=== PATIENT | male | born 1960 | race African-American/Black ===

== ENCOUNTER 2017-07-09 20:06 | Emergency (ER) | payer BC ==
[2017-07-09 21:37] LABS: Absolute Lymphocytes (CBC) 2.6 K/uL (0.7-4.9); Absolute Neutrophil 5.5 K/uL (1.8-8.0); Basophils % 0.9 % (0-1.3); Eosinophils % 1.1 % (0-4.4); Hematocrit 41.4 % (39.6-49.0); Lymphocytes % 27.9 % (15.3-44.8); MCH 29.5 pg (27.0-35.0); MCV 85.9 fL (80-100); MPV 9.9 fL (7.6-11.3); Monocytes % 10.4 % (3.3-12.3); RBC Red Blood Cell Count 4.81 M/uL (4.33-5.43)
[2017-07-09 21:43] LABS: Protime INR 1.09
[2017-07-09 21:48] LABS: Urine Blood 3+ (NEG); Urine Glucose NEGATIVE (NEG); Urine Protein 2+ (NEG); Urine Specific Gravity 1.015 (1.005-1.030); Urine pH 5.5 (5.0-7.0)
[2017-07-09 21:51] LABS: Potassium 4.1 mEq/L (3.6-5.0)
[2017-07-09 22:18] LABS: Urine Bacteria <20 /HPF (NONE SEEN); Urine Culture Reflex Order NOT NEEDED; Urine RBC >50 /HPF (NONE SEEN)
[2017-07-09 22:19] LABS: Urine Amorphous Sediment 2+ /HPF (NONE SEEN); Urine Mucus 1+ /HPF (NONE SEEN)
--- NOTE | 2017-07-09 22:48 | ER ---
Nurse's Notes [facility] Name: Monty Faulkner Age: 57 yrs Sex: Male : 1960 Arrival Date: 07/09/2017 Time: 20:17 Bed 5 Private MD: out of town, doctor Diagnosis: Hematuria Presentation: 07/09 20:35 Presenting complaint: Patient states: States color change in urine x1 week, eusebio in lp1 color; Denies any pain with urination, fever; States heart stent placed 2 weeks ago, on blood thinners. Transition of care: patient was not received from another setting of care. Onset of symptoms was July 09, 2017. Care prior to arrival: None. 20:35 Method Of Arrival: Ambulatory lp1 20:35 Acuity: YAYA 3 lp1 Historical: - Allergies: 20:40 No Known Allergies; lp1 - Home Meds: 20:40 BRILINTA 90 mg oral tab 1 tab 2 times per day [Active]; amlodipine 10 mg tab 1 tab once lp1 daily [Active]; atenolol 25 mg Oral tab 1 tab once daily [Active]; doxazosin 4 mg Oral tab 1 tab once daily [Active]; fluoxetine 20 mg Oral cap 1 cap once daily [Active]; hydrochlorothiazide 25 mg Oral tab 1 tab once daily [Active]; levetiracetam 500 mg Oral tab daily [Active]; lisinopril 20 mg Oral tab 1 tab once daily [Active]; metformin 1,000 mg Oral tr24 1 tab once daily [Active]; pravastatin 40 mg Oral tab nightly [Active]; spironolactone 25 mg Oral tab 1 tab 2 times per day [Active]; meloxicam 7.5 mg Oral tab 1 tab once daily [Active]; - PMHx: 20:40 CVA; Diabetes - NIDDM; Hypertension; Pulmonary Embolism; Seizures; TIA; lp1 - PSHx: 20:40 Heart stents; lp1 - Immunization history:: Adult Immunizations up to date. - Social history:: Smoking status: Patient/guardian denies using tobacco. Screenin:37 Abuse screen: Denies threats or abuse. Denies injuries from another. Nutritional lp1 screening: No deficits noted. Tuberculosis screening: No symptoms or risk factors identified. Fall Risk None identified. Assessment: 21:00 General: Appears in no apparent distress. comfortable, Behavior is calm, cooperative, bp appropriate for age. Pain: Denies pain. Neuro: Level of Consciousness is awake, alert, obeys commands, Oriented to person, place, time, situation, Appropriate for age. Cardiovascular: No deficits noted. Respiratory: Airway is patent Respiratory effort is even, unlabored, Respiratory pattern is regular, symmetrical. GI: No deficits noted. : Reports URINARY CHANGES. EENT: No signs and/or symptoms were reported regarding the EENT system. Derm: No deficits noted. Musculoskeletal: Circulation, motion, and sensation intact. Range of motion: intact in all extremities. 22:30 Reassessment: ALL CURRENT ORDERS COMPLETED, PENDING MD RE-EVAL AND DISPO. bp 22:58 Reassessment: PT D/C HOME AMBULATORY WITH FAMILY, DX WITH HEMATURIA. bp Vital Signs: 20:36 BP 113 / 84; Pulse 104; Resp 18; Temp 98.2(O); Pulse Ox 99% on R/A; Weight 136.53 kg; lp1 Height 6 ft. 1 in. (185.42 cm); Pain 0/10; 21:27 BP 130 / 84; Pulse 93; Resp 16; Pulse Ox 95% ; bp 22:30 BP 131 / 80; Pulse 87; Resp 16; Pulse Ox 99% ; bp 20:36 Body Mass Index 39.71 (136.53 kg, 185.42 cm) lp1 ED Course: 20:17 Patient arrived in ED. lp1 20:17 out of town, doctor is Private Physician. lp1 20:36 Triage completed. lp1 20:36 Arm band placed on left wrist. lp1 21:00 Patient has correct armband on for positive identification. Bed in low position. Call bp light in reach. Adult w/ patient. 21:14 Jake Lepe, ELAINE is Primary Nurse. bp 21:14 Jabari Narvaez MD is Attending Physician. gs 21:27 Inserted saline lock: 20 gauge in right forearm, using aseptic technique. Blood bp collected. 22:58 No provider procedures requiring assistance completed. IV discontinued, intact, bp bleeding controlled, No redness/swelling at site. Pressure dressing applied. Administered Medications: No medications were administered Outcome: 22:47 Discharge ordered by MD. gs 22:58 Discharged to home ambulatory, with family. bp 22:58 Condition: stable 22:58 Discharge instructions given to patient, family, Instructed on discharge instructions, follow up and referral plans. Demonstrated understanding of instructions, follow-up care. 22:59 Patient left the ED. bp Signatures: Edda Negron, RN RN lp1 Jabari Narvaez MD MD Jake Lepe RN RN bp
--- NOTE | 2017-07-09 22:48 | EDPHYS ---
Physician Documentation [facility] Name: Monty Faulkner Age: 57 yrs Sex: Male : 1960 Arrival Date: 07/09/2017 Time: 20:17 Bed 5 Private MD: out of town, doctor ED Physician Jabari Narvaez HPI: 07/09 22:44 This 57 yrs old Black Male presents to ER via Ambulatory with complaints of Urinary gs Problem. 22:44 The patient presents with urinary symptoms, darkening of urine. Onset: The gs symptoms/episode began/occurred yesterday. Modifying factors: The symptoms are alleviated by nothing, the symptoms are aggravated by nothing. Associated signs and symptoms: Pertinent positives: hematuria, Pertinent negatives: abdominal pain. Severity of symptoms: At their worst the symptoms were moderate, in the emergency department the symptoms are unchanged, no clots. The patient has not experienced similar symptoms in the past. Historical: - Allergies: 20:40 No Known Allergies; lp1 - Home Meds: 20:40 BRILINTA 90 mg oral tab 1 tab 2 times per day [Active]; amlodipine 10 mg tab 1 tab once lp1 daily [Active]; atenolol 25 mg Oral tab 1 tab once daily [Active]; doxazosin 4 mg Oral tab 1 tab once daily [Active]; fluoxetine 20 mg Oral cap 1 cap once daily [Active]; hydrochlorothiazide 25 mg Oral tab 1 tab once daily [Active]; levetiracetam 500 mg Oral tab daily [Active]; lisinopril 20 mg Oral tab 1 tab once daily [Active]; metformin 1,000 mg Oral tr24 1 tab once daily [Active]; pravastatin 40 mg Oral tab nightly [Active]; spironolactone 25 mg Oral tab 1 tab 2 times per day [Active]; meloxicam 7.5 mg Oral tab 1 tab once daily [Active]; - PMHx: 20:40 CVA; Diabetes - NIDDM; Hypertension; Pulmonary Embolism; Seizures; TIA; lp1 - PSHx: 20:40 Heart stents; lp1 - Immunization history:: Adult Immunizations up to date. - Social history:: Smoking status: Patient/guardian denies using tobacco. ROS: 22:44 Constitutional: Negative for fever. gs 22:44 : Negative for burning with urination. 22:44 All other systems are negative. Exam: 22:44 Head/Face: Normocephalic, atraumatic. Eyes: Pupils equal round and reactive to light, gs extra-ocular motions intact. Lids and lashes normal. Conjunctiva and sclera are non-icteric and not injected. Cornea within normal limits. Periorbital areas with no swelling, redness, or edema. ENT: Nares patent. No nasal discharge, no septal abnormalities noted. Tympanic membranes are normal and external auditory canals are clear. Oropharynx with no redness, swelling, or masses, exudates, or evidence of obstruction, uvula midline. Mucous membranes moist. Neck: Trachea midline, no thyromegaly or masses palpated, and no cervical lymphadenopathy. Supple, full range of motion without nuchal rigidity, or vertebral point tenderness. No Meningismus. Chest/axilla: Normal chest wall appearance and motion. Nontender with no deformity. No lesions are appreciated. Cardiovascular: Regular rate and rhythm with a normal S1 and S2. No gallops, murmurs, or rubs. Normal PMI, no JVD. No pulse deficits. Respiratory: Lungs have equal breath sounds bilaterally, clear to auscultation and percussion. No rales, rhonchi or wheezes noted. No increased work of breathing, no retractions or nasal flaring. Abdomen/GI: Soft, non-tender, with normal bowel sounds. No distension or tympany. No guarding or rebound. No evidence of tenderness throughout. Back: No spinal tenderness. No costovertebral tenderness. Full range of motion. Skin: Warm, dry with normal turgor. Normal color with no rashes, no lesions, and no evidence of cellulitis. MS/ Extremity: Pulses equal, no cyanosis. Neurovascular intact. Full, normal range of motion. Neuro: Awake and alert, GCS 15, oriented to person, place, time, and situation. Cranial nerves II-XII grossly intact. Motor strength 5/5 in all extremities. Sensory grossly intact. Cerebellar exam normal. Normal gait. 22:44 Constitutional: The patient appears alert, awake. Vital Signs: 20:36 BP 113 / 84; Pulse 104; Resp 18; Temp 98.2(O); Pulse Ox 99% on R/A; Weight 136.53 kg; lp1 Height 6 ft. 1 in. (185.42 cm); Pain 0/10; 21:27 BP 130 / 84; Pulse 93; Resp 16; Pulse Ox 95% ; bp 22:30 BP 131 / 80; Pulse 87; Resp 16; Pulse Ox 99% ; bp 20:36 Body Mass Index 39.71 (136.53 kg, 185.42 cm) lp1 MDM: 21:40 Patient medically screened. 22:44 Differential diagnosis: UTI, hematuria. Data reviewed: vital signs, nurses notes. 07/09 21:16 Order name: Urine Microscopic Only 07/09 21:16 Order name: CBC with Diff 07/09 21:16 Order name: BMP 07/09 21:16 Order name: PT-INR 07/09 21:23 Order name: Urine Dipstick--Ancillary (enter results) ar 07/09 21:41 Order name: CBC with Automated Diff; Complete Time: 22:23 EDKY 07/09 21:16 Order name: Urine Dipstick-Ancillary (obtain specimen); Complete Time: 21:27 07/09 21:48 Order name: Urine Dipstick-Ancillary; Complete Time: 22:23 EDMS 07/09 21:49 Order name: Protime (+INR); Complete Time: 22:23 EDMS 07/09 21:51 Order name: Basic Metabolic Panel; Complete Time: 22:23 EDMS 07/09 22:19 Order name: Urine Microscopic Only; Complete Time: 22:23 EDMS Administered Medications: No medications were administered Disposition: 07/09/17 22:47 Discharged to Home. Impression: Hematuria. - Condition is Stable. - Discharge Instructions: Hematuria, Adult. - Medication Reconciliation Form, Thank You Letter, Antibiotic Education, Prescription Opioid Use form. - Follow up: Private Physician; When: 2 - 3 days. Signatures: Dispatcher [employer] EDKY Edda Negron RN RN lp1 Jabari Narvaez MD MD Jake Lepe RN RN bp
[2017-07-09 23:09] VITALS: TEMP 98.2
[2017-07-09 23:13] VITALS: BP 131/80; O2SAT 99
== END 2017-07-09 22:59 | disposition home or self-care (01) ==
LOC: ER 20:06
DX: R31.9 Hematuria, unspecified (principal); I10 Essential (primary) hypertension; E11.9 Type 2 diabetes mellitus without complications; G40.909 Epilepsy, unspecified, not intractable, without status epilepticus; Z95.818 Presence of other cardiac implants and grafts
CPT/HCPCS: 36415; 80048; 81003; 81015; 85025; 85610; 99283

== ENCOUNTER 2020-07-14 20:06 | Emergency (ER) | payer BC ==
[2020-07-14 22:47] LABS: Urine Blood NEGATIVE (NEG); Urine Glucose 1+ (NEG); Urine Protein NEGATIVE (NEG); Urine Specific Gravity 1.025 (1.005-1.030); Urine pH 5.5 (5.0-7.0)
[2020-07-14 22:59] LABS: Absolute Lymphocytes (CBC) 2.5 K/uL (0.7-4.9); Basophils % 0.7 % (0-1.3); Hematocrit 40.6 % (39.6-49.0); Lymphocytes % 29.4 % (15.3-44.8); MPV 9.7 fL (7.6-11.3); RBC Red Blood Cell Count 4.63 M/uL (4.33-5.43)
[2020-07-14 23:05] LABS: Albumin 3.6 g/dL (3.4-5.0); Bilirubin Direct 0.1 mg/dL (0-0.2); Bilirubin Total 0.5 mg/dL (0.2-1.0); Protein, Total 8.6 g/dL (6.4-8.2)
--- NOTE | 2020-07-15 00:02 | EDPHYS ---
Physician Documentation [facility] Name: Monty Faulkner Age: 60 yrs Sex: Male : 1960 Arrival Date: 07/14/2020 Time: 20:07 Bed 4 Private MD: ED Physician Zaid Rdz HPI: 07/14 22:42 This 60 yrs old Black Male presents to ER via Ambulatory with complaints of Back Pain. jr8 22:42 The patient presents with pain that is acute. The symptoms are located in the left mid jr8 back. Onset: The symptoms/episode began/occurred acutely, today. The pain does not radiate. Associated signs and symptoms: The patient has no apparent associated signs or symptoms. The problem was sustained from unknown cause. Modifying factors: The patient symptoms are alleviated by nothing, the patient symptoms are aggravated by movement. Severity of symptoms: At their worst the symptoms were mild, in the emergency department the symptoms are unchanged. The patient has not experienced similar symptoms in the past. The patient has not recently seen a physician. denies fevers, abdominal pain, dysuria. Historical: - Allergies: 20:35 No Known Allergies; ca1 - PMHx: 20:35 CVA; Diabetes - NIDDM; Hypertension; Pulmonary Embolism; Seizures; TIA; ca1 - PSHx: 20:35 Heart stents; ca1 - Immunization history:: Flu vaccine is not up to date. - Social history:: Smoking status: Patient denies any tobacco usage or history of. ROS: 22:42 Eyes: Negative for injury, pain, redness, and discharge, ENT: Negative for injury, jr8 pain, and discharge, Neck: Negative for injury, pain, and swelling, Cardiovascular: Negative for chest pain, palpitations, and edema, Respiratory: Negative for shortness of breath, cough, wheezing, and pleuritic chest pain, Abdomen/GI: Negative for abdominal pain, nausea, vomiting, diarrhea, and constipation, MS/Extremity: Negative for injury and deformity, Skin: Negative for injury, rash, and discoloration, Neuro: Negative for headache, weakness, numbness, tingling, and seizure. 22:42 Back: Positive for pain at rest, pain with movement, Negative for radiated pain. Exam: 22:42 Constitutional: This is a well developed, well nourished patient who is awake, alert, jr8 and in no acute distress. Cardiovascular: Regular rate and rhythm with a normal S1 and S2. No gallops, murmurs, or rubs. Normal PMI, no JVD. No pulse deficits. Respiratory: Lungs have equal breath sounds bilaterally, clear to auscultation and percussion. No rales, rhonchi or wheezes noted. No increased work of breathing, no retractions or nasal flaring. Abdomen/GI: Soft, non-tender, with normal bowel sounds. No distension or tympany. No guarding or rebound. No evidence of tenderness throughout. Skin: Warm, dry with normal turgor. Normal color with no rashes, no lesions, and no evidence of cellulitis. MS/ Extremity: Pulses equal, no cyanosis. Neurovascular intact. Full, normal range of motion. Neuro: Awake and alert, GCS 15, oriented to person, place, time, and situation. Cranial nerves II-XII grossly intact. Motor strength 5/5 in all extremities. Sensory grossly intact. Cerebellar exam normal. Normal gait. 22:42 Back: pain, that is mild, of the left mid back, ROM is painful, with flexion, normal spinal alignment noted, CVA tenderness, that is mild, is noted on the left, vertebral tenderness, is not appreciated. Vital Signs: 20:30 BP 140 / 100; Pulse 97; Resp 16 S; Temp 97.3(TE); Pulse Ox 100% on R/A; Weight 138.35 ca1 kg (R); Height 6 ft. 1 in. (185.42 cm) (R); Pain 5/10; 22:15 BP 138 / 90; Pulse 91; Resp 18; Pulse Ox 99% on R/A; jb4 23:15 BP 137 / 91; Pulse 78; Resp 16; Pulse Ox 99% on R/A; Pain 3/10; jb4 07/15 00:07 BP 129 / 91; Pulse 76; Resp 16; Temp 97.5; Pulse Ox 98% on R/A; rv 07/14 20:30 Body Mass Index 40.24 (138.35 kg, 185.42 cm) ca1 MDM: 07/14 22:01 Patient medically screened. art 23:59 Data reviewed: vital signs, nurses notes, lab test result(s), radiologic studies, CT jr8 scan. Data interpreted: Pulse oximetry: on room air is 99 %. Interpretation: normal. Counseling: I had a detailed discussion with the patient and/or guardian regarding: the historical points, exam findings, and any diagnostic results supporting the discharge/admit diagnosis, lab results, radiology results, the need for outpatient follow up, a family practitioner, to return to the emergency department if symptoms worsen or persist or if there are any questions or concerns that arise at home. ED course: Discussed results with patient. Needs to f/u with PCP for mild renal dysfunction more than likely secondary to his NIDDM. Otherwise no acute findings in urine, labs, or imaging. Most likely pain in back is muscle in nature. Will send home on muscle relaxants . 07/14 22:10 Order name: Basic Metabolic Panel [facility] 07/14 22:10 Order name: CBC with Diff [facility] 07/14 22:10 Order name: Hepatic Function [facility] 07/14 22:10 Order name: Urine Microscopic Only [facility] 07/14 22:12 Order name: Basic Metabolic Panel; Complete Time: 23:29 [facility] 07/14 22:12 Order name: CBC with Automated Diff; Complete Time: 23:29 [facility] 07/14 22:10 Order name: IV Saline Lock; Complete Time: 22:39 [facility] 07/14 22:10 Order name: Labs collected and sent; Complete Time: 22:39 [facility] 07/14 22:10 Order name: Urine Dipstick-Ancillary (obtain specimen); Complete Time: 22:39 [facility] 07/14 22:11 Order name: CT Stone Protocol [facility] 07/14 22:12 Order name: Liver (Hepatic) Function; Complete Time: 23:29 [facility] 07/14 22:12 Order name: Urine Microscopic Only [facility] 07/14 22:35 Order name: Urine Dipstick--Ancillary (enter results); Complete Time: 23:29 tt3 Administered Medications: No medications were administered Disposition: 07/15 07:56 Co-signature as Attending Physician, Zaid Rdz MD I agree with the assessment and art plan of care. Disposition: 07/15/20 00:02 Discharged to Home. Impression: Muscle spasm of back. - Condition is Stable. - Discharge Instructions: Back Pain, Adult, Back Exercises, [id number], Heat Therapy. - Prescriptions for Robaxin 500 mg Oral Tablet - take 2 tablet by ORAL route every 6 hours As needed; 40 tablet. - Medication Reconciliation Form, Thank You Letter, Antibiotic Education, Prescription Opioid Use form. - Follow up: Private Physician; When: 2 - 3 days; Reason: Recheck today's complaints, Continuance of care, Re-evaluation by your physician. - Problem is new. - Symptoms have improved. Signatures: Dispatcher [employer] EDZaid Patel MD MD cha Roszak, Josh, PA PA jr8 Adrian Ashley RN RN Viki Preston RN RN ca1 Corrections: (The following items were deleted from the chart) 00:08 00:02 07/15/2020 00:02 Discharged to Home. Impression: Muscle spasm of back. Condition rv is Stable. Forms are Medication Reconciliation Form, Thank You Letter, Antibiotic Education, Prescription Opioid Use. Follow up: Private Physician; When: 2 - 3 days; Reason: Recheck today's complaints, Continuance of care, Re-evaluation by your physician. Problem is new. Symptoms have improved. jr8
--- NOTE | 2020-07-15 00:02 | ER ---
Nurse's Notes [facility] Name: Monty Faulkner Age: 60 yrs Sex: Male : 1960 Arrival Date: 07/14/2020 Time: 20:07 Bed 4 Private MD: Diagnosis: Muscle spasm of back Presentation: 07/14 20:30 Chief complaint: Patient states: Started having back pain last night about 0130 am. ca1 About 0230, back pain got worse. Low back pain, middle. Denies recent injury to the back. Denies urinary symptoms. Coronavirus screen: Client denies travel out of the [place] in the last 14 days. At this time, the client does not indicate any symptoms associated with coronavirus-19. Ebola Screen: Patient negative for fever greater than or equal to 101.5 degrees Fahrenheit, and additional compatible Ebola Virus Disease symptoms Patient denies exposure to infectious person. Patient denies travel to an Ebola-affected area in the 21 days before illness onset. No symptoms or risks identified at this time. Initial Sepsis Screen: Does the patient meet any 2 criteria? No. Patient's initial sepsis screen is negative. Does the patient have a suspected source of infection? No. Patient's initial sepsis screen is negative. Risk Assessment: Do you want to hurt yourself or someone else? Patient reports no desire to harm self or others. Onset of symptoms was July 14, 2020. 20:30 Method Of Arrival: Ambulatory ca1 20:30 Acuity: YAYA 4 ca1 Historical: - Allergies: 20:35 No Known Allergies; ca1 - PMHx: 20:35 CVA; Diabetes - NIDDM; Hypertension; Pulmonary Embolism; Seizures; TIA; ca1 - PSHx: 20:35 Heart stents; ca1 - Immunization history:: Flu vaccine is not up to date. - Social history:: Smoking status: Patient denies any tobacco usage or history of. Screenin:15 Abuse screen: Denies threats or abuse. Nutritional screening: No deficits noted. jb4 Tuberculosis screening: No symptoms or risk factors identified. Fall Risk None identified. Assessment: 22:08 General: Appears in no apparent distress. comfortable, Behavior is calm, cooperative, jb4 appropriate for age. Pain: Complains of pain in lumbar area Pain does not radiate. Pain currently is 6 out of 10 on a pain scale. Neuro: Level of Consciousness is awake, alert, obeys commands, Oriented to person, place, time, situation. Cardiovascular: Patient's skin is warm and dry. Respiratory: Airway is patent Respiratory effort is even, unlabored, Respiratory pattern is regular, symmetrical. GI: No signs and/or symptoms were reported involving the gastrointestinal system. : No signs and/or symptoms were reported regarding the genitourinary system. EENT: No signs and/or symptoms were reported regarding the EENT system. Derm: Skin is intact, Skin is pink, warm \T\ dry. Musculoskeletal: Circulation, motion, and sensation intact. Range of motion: intact in all extremities. 23:00 Reassessment: Patient appears in no apparent distress at this time. Patient and/or jb4 family updated on plan of care and expected duration. Pain level reassessed. Patient is alert, oriented x 3, equal unlabored respirations, skin warm/dry/pink. Vital Signs: 20:30 BP 140 / 100; Pulse 97; Resp 16 S; Temp 97.3(TE); Pulse Ox 100% on R/A; Weight 138.35 ca1 kg (R); Height 6 ft. 1 in. (185.42 cm) (R); Pain 5/10; 22:15 BP 138 / 90; Pulse 91; Resp 18; Pulse Ox 99% on R/A; jb4 23:15 BP 137 / 91; Pulse 78; Resp 16; Pulse Ox 99% on R/A; Pain 3/10; jb4 07/15 00:07 BP 129 / 91; Pulse 76; Resp 16; Temp 97.5; Pulse Ox 98% on R/A; rv 07/14 20:30 Body Mass Index 40.24 (138.35 kg, 185.42 cm) ca1 ED Course: 07/14 20:08 Patient arrived in ED. am4 20:35 Triage completed. ca1 20:35 Arm band placed on right wrist. ca1 21:58 Cecil Whipple PA is PHCP. jr8 21:58 Zaid Rdz MD is Attending Physician. jr8 22:03 Daniel Biswas RN is Primary Nurse. jb4 22:34 Inserted saline lock: 22 gauge in right antecubital area, using aseptic technique. ds4 Blood collected. 23:00 Patient has correct armband on for positive identification. Pulse ox on. NIBP on. rv 23:06 CT Stone Protocol In Process Unspecified. EDMS 07/15 00:08 No provider procedures requiring assistance completed. IV discontinued, intact, rv bleeding controlled, No redness/swelling at site. Pressure dressing applied. Administered Medications: No medications were administered Outcome: 00:02 Discharge ordered by MD. chance 00:08 Discharged to home ambulatory. rv 00:08 Condition: good 00:08 Discharge instructions given to patient, Instructed on discharge instructions, follow up and referral plans. medication usage, Demonstrated understanding of instructions, follow-up care, medications, Prescriptions given X 1. 00:08 Patient left the ED. rv Signatures: Dispatcher [employer] EDUT Cecil Whipple PA PA jr8 Jasvir Leggett4 Daniel Biswas, RN RN jb4 Adrian Ashley RN RN rv Viki Preston RN RN Lili Galloway
[2020-07-15 00:47] LABS: Urine Bacteria <20 /HPF (NONE SEEN); Urine RBC <5 /HPF (NONE SEEN); Urine Sperm PRESENT (NONE SEEN)
[2020-07-15 04:20] VITALS: BP 129/91; TEMP 97.5; O2SAT 98
--- NOTE | 2020-07-15 14:48 | RAD REPORT ---
EXAM DESCRIPTION: CT - Stone Protocol - 07/15/2020 7:04 am CLINICAL HISTORY: Back pain; Abd pain TECHNIQUE: Contiguous axial images obtained through the abdomen and pelvis without IV contrast. Niru nal and sagittal reformatted images were provided. This exam was performed according to our depart mental dose-optimization program, which includes automated exposure control, adjustment of the mA and /or kV according to patient size and/or use of iterative reconstruction technique. COMPARISON: 05/10/2017 FINDINGS: Lung bases: Right lower lobe pleural parenchymal scar. Coronary artery calcification.Liver : Heterogeneous hepatic parenchyma with areas of low density not definitively seen on the prior study .Gallbladder and biliary system: UnremarkablePancreas: Grossly unremarkableSpleen: Grossly unremarkab leAdrenals: UnremarkableKidneys: 1.5 cm cortical cyst at the lower pole on the right (previously 1 cm ). No calculi. No hydronephrosis.Bowel: Intramural fat within portions of the large bowel which can b e seen in the setting of prior inflammation. No obstruction. No appreciable mucosal thickening.Append ix: Normal caliber appendix. No findings to suggest acute appendicitis.Urinary bladder: Mild circumfe rential urinary bladder wall thickening.Reproductive: The prostate is mildly enlarged.Lymph nodes: No pathologically enlarged lymph nodes.Peritoneum: No focal fluid collection. No free air.Vessels: Mild atherosclerotic disease. No abdominal aortic aneurysm.Abdominal wall: Small fat-containing umbilical hernia.Bones: Multilevel spondylosis. No acute fracture. IMPRESSION: 1. Heterogeneous hepatic parenchyma with areas of low density not definitively seen on the prior. This may in part be artifactual or reflect areas of fatty infiltration. The possibility o f underlying masses potentially in the setting of metastatic disease cannot be excluded on the basis of this examination. Consider triple phase CT or MR for further evaluation. 2. Mild circumferential urinary bladder wall thickening which may be related to bladder outlet obst ruction. Please correlate clinically for cystitis. 3. Other findings as above. Electronically signed by: Madhu Mcginnis MD 07/14/2020 11:25 PM CDT Due to temporary technical issues with the PACS/Fluency reporting system, reports are being signed by the in house radiologist without review as a courtesy to ensure prompt reporting. The interpreting r adiologist is fully responsible for the content of the report.
== END 2020-07-15 00:08 | disposition home or self-care (01) ==
LOC: ER 20:06
DX: M62.830 Muscle spasm of back (principal); I10 Essential (primary) hypertension; Z95.818 Presence of other cardiac implants and grafts
CPT/HCPCS: 36415; 74176; 76377; 80048; 80076; 81003; 81015; 85025; 99284

== ENCOUNTER 2020-09-10 08:39 | Emergency (ER) | payer BC ==
--- NOTE | 2020-09-10 09:35 | RAD REPORT ---
EXAM DESCRIPTION: CT - Head Brain Wo Cont - 09/10/2020 9:24 am CLINICAL HISTORY: Numbness;Weakness Headache, drowsiness COMPARISON: Head Brain Wo Cont dated 05/10/2017; HEAD BRAIN W O CONTRAST dated 02/19/2015 TECHNIQUE: All CT scans are performed using dose optimization technique as appropriate and may inclu de automated exposure control or mA/KV adjustment according to patient size. FINDINGS: No intracranial hemorrhage, hydrocephalus or extra-axial fluid collection.Mild generalized brain atrophy is present with mild periventricular and deep white matter chronic microvascular ische jaylon changes.Right frontal lobe gliosis is present. The paranasal sinuses and mastoids are clear. The calvarium is intact. IMPRESSION: No acute intracranial abnormality.
[2020-09-10 11:00] LABS: Absolute Lymphocytes (CBC) 2.2 K/uL (0.7-4.9); Basophils % 0.7 % (0-1.3); Lymphocytes % 31.1 % (15.3-44.8); MPV 9.7 fL (7.6-11.3); RBC Red Blood Cell Count 4.56 M/uL (4.33-5.43)
[2020-09-10 11:02] LABS: Protime INR 1.12
--- NOTE | 2020-09-10 11:12 | RAD REPORT ---
EXAM DESCRIPTION: RAD - Chest Single View - 09/10/2020 11:07 am CLINICAL HISTORY: CHEST PAIN Chest pain. COMPARISON: Chest Single View dated 06/16/2017; Chest Single View dated 05/11/2017; CHEST SINGLE VIEW dated 02/19/2015 FINDINGS: Portable technique limits examination quality. The lungs are grossly clear. The heart is normal in size. No displaced fractures. IMPRESSION: No acute intrathoracic process suspected.
[2020-09-10 11:18] LABS: ALT/SGPT 47 U/L (12-78); AST/SGOT 28 U/L (15-37); Albumin 3.7 g/dL (3.4-5.0); Alkaline Phosphatase 103 U/L (45-117); BUN Blood Urea Nitrogen 15 mg/dL (7-18); Bicarbonate 24 mmol/L (21-32); Bilirubin Direct 0.2 mg/dL (0-0.2); Bilirubin Total 0.6 mg/dL (0.2-1.0); Glucose Level 191 mg/dL (74-106); NT PRO-BNP 199 pg/mL (<125); Potassium 3.8 mmol/L (3.5-5.1); Protein, Total 8.6 g/dL (6.4-8.2); Sodium Level 137 mmol/L (136-145); Troponin (Emerg Dept Use Only) < 0.02 ng/mL (0.0-0.045)
--- NOTE | 2020-09-10 11:27 | EDPHYS ---
Physician Documentation [facility] Name: Monty Faulkner Age: 60 yrs Sex: Male : 1960 Arrival Date: 09/10/2020 Time: 08:42 Bed 14 Private MD: ED Physician Nayan Archer HPI: 09/10 10:52 This 60 yrs old Black Male presents to ER via Ambulatory with complaints of Doesn't jr8 Feel Right. 10:52 Onset: acutely, today. Associated signs and symptoms: Pertinent positives: chest pain jr8 and tingling in right arm. The chest pain is described as a heaviness. Severity of pain: At its worst the pain was mild in the emergency department the pain has resolved. The patient has not experienced similar symptoms in the past. The patient has not recently seen a physician. 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 Stated that he was generally not feeling well. While at work has some mild chest tightness and tingling in right arm that has since resolved. History of CVA and CAD. Wanted to be evaluated to make sure everything was ok . Historical: - Allergies: 09:04 No Known Allergies; hb - Home Meds: 09:04 amlodipine 10 mg tab 1 tab once daily [Active]; atenolol 25 mg Oral tab 1 tab once hb daily [Active]; BRILINTA 90 mg Oral tab 1 tab 2 times per day [Active]; doxazosin 4 mg Oral tab 1 tab once daily [Active]; fluoxetine 20 mg Oral cap 1 cap once daily [Active]; hydrochlorothiazide 25 mg Oral tab 1 tab once daily [Active]; levetiracetam 500 mg Oral tab daily [Active]; lisinopril 20 mg Oral tab 1 tab once daily [Active]; meloxicam 7.5 mg Oral tab 1 tab once daily [Active]; metformin 1,000 mg Oral tr24 1 tab once daily [Active]; pravastatin 40 mg Oral tab nightly [Active]; spironolactone 25 mg Oral tab 1 tab 2 times per day [Active]; - PMHx: 09:04 CVA; Diabetes - NIDDM; Hypertension; Pulmonary Embolism; Seizures; TIA; hb - PSHx: 09:04 Heart stents; hb - Immunization history:: Adult Immunizations up to date. - Social history:: Smoking status: Patient denies any tobacco usage or history of. ROS: 10:52 Eyes: Negative for injury, pain, redness, and discharge, ENT: Negative for injury, jr8 pain, and discharge, Neck: Negative for injury, pain, and swelling, Respiratory: Negative for shortness of breath, cough, wheezing, and pleuritic chest pain, Abdomen/GI: Negative for abdominal pain, nausea, vomiting, diarrhea, and constipation, Back: Negative for injury and pain, MS/Extremity: Negative for injury and deformity, Skin: Negative for injury, rash, and discoloration, Neuro: Negative for headache, weakness, numbness, tingling, and seizure. 10:52 Cardiovascular: Positive for chest pain, Negative for edema, orthopnea, palpitations, paroxysmal nocturnal dyspnea. Exam: 10:52 Eyes: Pupils equal round and reactive to light, extra-ocular motions intact. Lids and jr8 lashes normal. Conjunctiva and sclera are non-icteric and not injected. Cornea within normal limits. Periorbital areas with no swelling, redness, or edema. ENT: Nares patent. No nasal discharge, no septal abnormalities noted. Tympanic membranes are normal and external auditory canals are clear. Oropharynx with no redness, swelling, or masses, exudates, or evidence of obstruction, uvula midline. Mucous membranes moist. Neck: Trachea midline, no thyromegaly or masses palpated, and no cervical lymphadenopathy. Supple, full range of motion without nuchal rigidity, or vertebral point tenderness. No Meningismus. Chest/axilla: Normal chest wall appearance and motion. Nontender with no deformity. No lesions are appreciated. Cardiovascular: Regular rate and rhythm with a normal S1 and S2. No gallops, murmurs, or rubs. Normal PMI, no JVD. No pulse deficits. Respiratory: Lungs have equal breath sounds bilaterally, clear to auscultation and percussion. No rales, rhonchi or wheezes noted. No increased work of breathing, no retractions or nasal flaring. Abdomen/GI: Soft, non-tender, with normal bowel sounds. No distension or tympany. No guarding or rebound. No evidence of tenderness throughout. Back: No spinal tenderness. No costovertebral tenderness. Full range of motion. Skin: Warm, dry with normal turgor. Normal color with no rashes, no lesions, and no evidence of cellulitis. MS/ Extremity: Pulses equal, no cyanosis. Neurovascular intact. Full, normal range of motion. Neuro: Awake and alert, GCS 15, oriented to person, place, time, and situation. Cranial nerves II-XII grossly intact. Motor strength 5/5 in all extremities. Sensory grossly intact. Cerebellar exam normal. Normal gait. 10:52 ECG was reviewed by the Attending Physician. Vital Signs: 09:00 BP 162 / 106; Pulse 109; Resp 18; Temp 97.2; Pulse Ox 99% on R/A; Pain 0/10; hb 10:49 BP 152 / 100; Pulse 98; Resp 18; Pulse Ox 97% on R/A; vg1 11:17 BP 121 / 80; Pulse 97; Resp 12; Pulse Ox 98% on R/A; vg1 MDM: 09:40 Patient medically screened. [facility] 11:25 Data reviewed: vital signs, nurses notes, lab test result(s), EKG, radiologic studies, [facility] plain films. Data interpreted: Pulse oximetry: on room air is 98 %. Interpretation: normal. Counseling: I had a detailed discussion with the patient and/or guardian regarding: the historical points, exam findings, and any diagnostic results supporting the discharge/admit diagnosis, lab results, radiology results, the need for outpatient follow up, a family practitioner, to return to the emergency department if symptoms worsen or persist or if there are any questions or concerns that arise at home. ED course: Patient remains hemodynamically stable. No CP at this time. Recommended f/u with PCP and cardiology after the weekend. If worse to come back. 09/10 10:20 Order name: Basic Metabolic Panel [facility] 09/10 10:20 Order name: CBC with Diff [facility] 09/10 10:20 Order name: LFT's; Complete Time: 11:24 [facility] 09/10 10:20 Order name: Magnesium; Complete Time: : [facility] 09/10 10:20 Order name: NT PRO-BNP; Complete Time: : [facility] 09/10 10:20 Order name: PT-INR; Complete Time: 11:11 [facility] 09/10 09:10 Order name: CT Head Brain wo Cont; Complete Time: 09:40 hb 09/10 10:20 Order name: Troponin (emerg Dept Use Only); Complete Time: 11: jr8 09/10 10:20 Order name: XRAY Chest (1 view); Complete Time: jr8 09/10 10:20 Order name: EKG; Complete Time: : jr8 09/10 10:20 Order name: Cardiac monitoring; Complete Time: 47 jr8 09/10 10:21 Order name: Basic Metabolic Panel; Complete Time: 11: EDMS 09/10 10:21 Order name: CBC with Automated Diff; Complete Time: 11: EDMS 09/10 10:20 Order name: EKG - Nurse/Tech; Complete Time: jr8 09/10 10:20 Order name: IV Saline Lock; Complete Time: jr8 09/10 10:20 Order name: Labs collected and sent; Complete Time: :48 jr8 09/10 10:20 Order name: O2 Per Protocol; Complete Time: jr8 09/10 10:20 Order name: O2 Sat Monitoring; Complete Time: 10:48 jr EC:52 Rate is 97 beats/min. Rhythm is regular, Sinus Rhythm. QRS [place] is Normal. IA interval jr8 is normal at 142 msec. QRS interval is prolonged at 150 msec. QT interval is normal at 416 msec. No Q waves. T waves are Inverted in leads I, aVL, V5, V6. T waves are Flattened in lead II. No ST changes noted. Clinical impression: Sinus Rhythm with LBBB. Interpreted by me. Reviewed by me. Administered Medications: 11:17 Drug: Tylenol 1000 mg Route: PO; vg1 11:55 Follow up: Response: No adverse reaction vg1 Disposition: 13:06 Co-signature as Attending Physician, Nayan Archer MD I agree with the assessment and kdr plan of care. Disposition: 09/10/20 11:27 Discharged to Home. Impression: Chest pain, unspecified. - Condition is Stable. - Discharge Instructions: Nonspecific Chest Pain. - Medication Reconciliation Form, Thank You Letter, Antibiotic Education, Prescription Opioid Use, Work release form form. - Follow up: Jean-Pierre Magallon MD; When: 2 - 3 days; Reason: Recheck today's complaints, Continuance of care, Re-evaluation by your physician. - Problem is new. - Symptoms have improved. Signatures: Dispatcher [employer] EDMS Nayan Archer MD MD kdr Roszak, Josh, PA PA jr8 Meliza Rubio, RN RN Monica Schroeder RN RN vg1 Corrections: (The following items were deleted from the chart) 11:56 11:27 09/10/2020 11:27 Discharged to Home. Impression: Chest pain, unspecified. vg1 Condition is Stable. Forms are Medication Reconciliation Form, Thank You Letter, Antibiotic Education, Prescription Opioid Use. Follow up: Jean-Pierre Magallon; When: 2 - 3 days; Reason: Recheck today's complaints, Continuance of care, Re-evaluation by your physician. Problem is new. Symptoms have improved. jr8
--- NOTE | 2020-09-10 11:27 | ER ---
Nurse's Notes [facility] Name: Monty aFulkner Age: 60 yrs Sex: Male : 1960 Arrival Date: 09/10/2020 Time: 08:42 Bed 14 Private MD: Diagnosis: Chest pain, unspecified Presentation: 09/10 09:00 Chief complaint: Patient states: I have been working extra shifts this week, and I just hb came off of 16 hours, my job is at risk if I turn down the hours, but I am worn out, feeling very fatigued, this morning I had a brief tingle in my right hand and my left chest hurt for a few seconds, but that went away and I am just so tired."+. Coronavirus screen: At this time, the client does not indicate any symptoms associated with coronavirus-19. Ebola Screen: No symptoms or risks identified at this time. Initial Sepsis Screen: Does the patient meet any 2 criteria? No. Patient's initial sepsis screen is negative. Does the patient have a suspected source of infection? No. Patient's initial sepsis screen is negative. Risk Assessment: Do you want to hurt yourself or someone else? Patient reports no desire to harm self or others. Onset of symptoms was September 10, 2020. 09:00 Method Of Arrival: Ambulatory hb 09:00 Acuity: YAYA 3 hb Historical: - Allergies: 09:04 No Known Allergies; hb - Home Meds: 09:04 amlodipine 10 mg tab 1 tab once daily [Active]; atenolol 25 mg Oral tab 1 tab once hb daily [Active]; BRILINTA 90 mg Oral tab 1 tab 2 times per day [Active]; doxazosin 4 mg Oral tab 1 tab once daily [Active]; fluoxetine 20 mg Oral cap 1 cap once daily [Active]; hydrochlorothiazide 25 mg Oral tab 1 tab once daily [Active]; levetiracetam 500 mg Oral tab daily [Active]; lisinopril 20 mg Oral tab 1 tab once daily [Active]; meloxicam 7.5 mg Oral tab 1 tab once daily [Active]; metformin 1,000 mg Oral tr24 1 tab once daily [Active]; pravastatin 40 mg Oral tab nightly [Active]; spironolactone 25 mg Oral tab 1 tab 2 times per day [Active]; - PMHx: 09:04 CVA; Diabetes - NIDDM; Hypertension; Pulmonary Embolism; Seizures; TIA; hb - PSHx: 09:04 Heart stents; hb - Immunization history:: Adult Immunizations up to date. - Social history:: Smoking status: Patient denies any tobacco usage or history of. Screenin:45 Abuse screen: Denies threats or abuse. Denies injuries from another. Nutritional hb screening: No deficits noted. Tuberculosis screening: No symptoms or risk factors identified. Fall Risk None identified. Assessment: 09:00 General: Appears in no apparent distress. Behavior is calm, cooperative. Pain: Denies hb pain. Neuro: Level of Consciousness is awake, alert, obeys commands, Oriented to person, place, time, situation. Cardiovascular: Patient's skin is warm and dry. Rhythm is regular. Respiratory: Respiratory effort is even, unlabored, Respiratory pattern is regular, symmetrical. GI: No signs and/or symptoms were reported involving the gastrointestinal system. : No signs and/or symptoms were reported regarding the genitourinary system. EENT: No signs and/or symptoms were reported regarding the EENT system. Derm: Skin is pink, warm \\T\\ dry. Musculoskeletal: No signs and/or symptoms reported regarding the musculoskeletal system. 09:48 Reassessment: Patient appears in no apparent distress at this time. Patient and/or hb family updated on plan of care and expected duration. Pain level reassessed. Patient is alert, oriented x 3, equal unlabored respirations, skin warm/dry/pink. 10:49 Reassessment: Patient appears in no apparent distress at this time. No changes from vg1 previously documented assessment. Patient and/or family updated on plan of care and expected duration. Pain level reassessed. Patient is alert, oriented x 3, equal unlabored respirations, skin warm/dry/pink. Pt states h/a, rates pain 5/10; requested Tylenol; Provider notified. Vital Signs: 09:00 BP 162 / 106; Pulse 109; Resp 18; Temp 97.2; Pulse Ox 99% on R/A; Pain 0/10; hb 10:49 BP 152 / 100; Pulse 98; Resp 18; Pulse Ox 97% on R/A; vg1 11:17 BP 121 / 80; Pulse 97; Resp 12; Pulse Ox 98% on R/A; vg1 ED Course: 08:42 Patient arrived in ED. mr 09:00 Arm band placed on. hb 09:03 Triage completed. hb 09:23 CT Head Brain wo Cont In Process Unspecified. EDMS 09:40 Cecil Whipple PA is PHCP. jr8 09:40 Nayan Archer MD is Attending Physician. jr8 09:45 Patient has correct armband on for positive identification. Bed in low position. Call light in reach. 10:25 Monica Schroeder, RN is Primary Nurse. vg1 10:45 Initial lab(s) drawn, by ca, sent to lab. Inserted saline lock: 20 gauge in right vg1 antecubital area, using aseptic technique. Blood collected. 11:07 XRAY Chest (1 view) In Process Unspecified. EDMS 11:26 Jean-Pierre Magallon MD is Referral Physician. jr8 11:56 No provider procedures requiring assistance completed. IV discontinued, intact, vg1 bleeding controlled, No redness/swelling at site. Pressure dressing applied. Administered Medications: 11:17 Drug: Tylenol 1000 mg Route: PO; vg1 11:55 Follow up: Response: No adverse reaction vg1 Outcome: 11:27 Discharge ordered by . jr8 11:56 Discharged to home ambulatory. vg1 11:56 Condition: stable 11:56 Discharge instructions given to patient, Instructed on discharge instructions, follow up and referral plans. Demonstrated understanding of instructions, follow-up care. 11:56 Patient left the ED. vg1 Signatures: Dispatcher [employer] EDCO Xochitl Hastings mr Cecil Whipple PA PA jr8 Meliza Rubio RN RN hb Garcia, Victoria, RN RN vg1
[2020-09-10] MEDS ORDERED: ACETAMINOPHEN 500 MG TAB ONE (11:35)
[2020-09-10 12:34] VITALS: TEMP 97.2
[2020-09-10 12:37] VITALS: BP 121/80; O2SAT 98
== END 2020-09-10 11:56 | disposition home or self-care (01) ==
LOC: ER 08:39
DX: R07.9 Chest pain, unspecified (principal); I10 Essential (primary) hypertension; E11.9 Type 2 diabetes mellitus without complications; Z86.73 Personal history of transient ischemic attack (TIA), and cerebral infarction without residual deficits; Z95.818 Presence of other cardiac implants and grafts
CPT/HCPCS: 36415; 70450; 71045; 80048; 80076; 83735; 83880; 84484; 85025; 85610; 93005; 99284

== ENCOUNTER 2022-07-13 19:07 | Observation (INO) | payer BC ==
--- NOTE | 2022-07-13 20:37 | RAD REPORT ---
EXAM DESCRIPTION: RAD - Chest Single View - 07/13/2022 8:13 pm CLINICAL HISTORY: CHEST PAIN COMPARISON: 09/10/2020 FINDINGS: Lines: None. Lungs: Diffuse prominence of the pulmonary interstitium. Pleural: No significant pleural effusions or pneumothorax. Cardiac: Cardiomegaly. Mediastinum: Within normal limits. Bones: No acute fractures. Other: None IMPRESSION: Diffuse prominence of the pulmonary interstitium which may represent interstitial edema, less likely pneumonia.
[2022-07-13 20:39] LABS: Absolute Lymphocytes (CBC) 1.6 K/uL (0.7-4.9); Hematocrit 39.8 % (39.6-49.0); MCV 88.2 fL (80-100); MPV 9.7 fL (7.6-11.3); RBC Red Blood Cell Count 4.51 M/uL (4.33-5.43)
[2022-07-13 20:41] LABS: Protime INR 1.1
[2022-07-13 20:53] LABS: Potassium 3.5 mEq/L (3.5-5.1); Troponin High Sensitivity 12.9 pg/mL (<58.9)
[2022-07-13 21:10] LABS: SARS-COV-2 RT PCR NEGATIVE (NEGATIVE)
--- NOTE | 2022-07-13 21:58 | RAD REPORT ---
EXAM DESCRIPTION: CT - Head Brain Wo Cont - 07/13/2022 9:50 pm CLINICAL HISTORY: right arm tingling COMPARISON: Head Brain Wo Cont dated 09/10/2020; Head Brain Wo Cont dated 05/10/2017 TECHNIQUE: All CT scans are performed using dose optimization technique as appropriate and may inclu de automated exposure control or mA/KV adjustment according to patient size. FINDINGS: No intracranial hemorrhage, hydrocephalus or extra-axial fluid collection.No areas of brai n edema or evidence of midline shift. Remote right frontal lobe infarct . Remote right basal ganglia. New left basal ganglia lacunar infarct which is age indeterminate. Trace left maxillary sinus thickening. The calvarium is intact. IMPRESSION: No acute intracranial hemorrhage or acute large vascular territory infarct. New left cor kristina radiata hypoattenuation is probably a small chronic lacunar infarct but given the patient's sympt oms involving the right upper extremity, MRI could better assess. Remote right frontal lobe and righ t basal ganglia infarct.
--- NOTE | 2022-07-13 22:07 | RAD REPORT ---
EXAM DESCRIPTION: CTAngio Aorta For Dissection - 07/13/2022 9:51 pm CLINICAL HISTORY: chest pain, right arm numbness COMPARISON: No comparisons TECHNIQUE: CTA of the chest, abdomen, and pelvis was performed. MIPS reconstructions of the aorta we re performed. All CT scans are performed using dose optimization technique as appropriate and may include automated exposure control or mA/KV adjustment according to patient size. FINDINGS: Thorax: Chest Wall: No abnormal mass Lungs: Mild scarring in the right lung base. No acute process identified. Pleura: No effusions or pneumothorax. [place]/Mediastinum: No lymphadenopathy. Aorta/Pulmonary Arteries: Unremarkable Heart: Normal size. Multi-vessel coronary artery disease. Abdomen/Pelvis: Liver: No acute abnormality or suspicious lesions. Hepatic steatosis Biliary: No biliary ductal dilatation. Mild indistinctness of the gallbladder wall. Cholelithiasis is noted. Stomach: No significant focal abnormality. Duodenum: No significant focal abnormality. Pancreas: No significant abnormality. Spleen: No significant abnormality. Adrenal: No suspicious lesions. Kidney/ureter: No hydronephrosis. No renal calculi. Too small to characterize and/or benign appearing renal lesions are noted. Retroperitoneum: No retroperitoneal adenopathy. Vascular: No aneurysm. Mild atherosclerosis. Bowel: Normal appendix. No bowel obstruction.. Peritoneum: No ascites or free air. Bladder: Grossly unremarkable. Reproductive: Prostatomegaly. Bones: No acute fracture. Other: n/a IMPRESSION: No aortic aneurysm, aortic dissection, or pulmonary embolus identified. Cholelithiasis. Mild irregularity of the gallbladder wall without significant gallbladder distension. Cholecystitis is unlikely. Correlate with LFT's and possibly RUQ ultrasound depending on clinical morales spicion.
--- NOTE | 2022-07-13 22:14 | ER ---
Nurse's Notes [facility] Name: Monty Faulkner Age: 62 yrs Sex: Male : 1960 Arrival Date: 07/13/2022 Time: 19:11 Bed 8 Private MD: Diagnosis: Chest pain, unspecified Presentation: 07/13 19:13 Chief complaint: Patient states: "I feel short of breath with chest pain with weakness vc1 to my left arm.". Coronavirus screen: Vaccine status: Patient reports receiving the 2nd dose of the covid vaccine. 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 in the last 14 days. At this time, the client does not indicate any symptoms associated with coronavirus-19. Ebola Screen: Patient negative for fever greater than or equal to 101.5 degrees Fahrenheit, and additional compatible Ebola Virus Disease symptoms Patient denies exposure to infectious person. Patient denies travel to an Ebola-affected area in the 21 days before illness onset. No symptoms or risks identified at this time. Risk Assessment: Do you want to hurt yourself or someone else? Patient reports no desire to harm self or others. Onset of symptoms was July 13, 2022 at 18:45. 19:13 Method Of Arrival: Ambulatory vc1 19:13 Acuity: YAYA 2 vc1 20:24 Initial Sepsis Screen: Does the patient meet any 2 criteria? No. Patient's initial kd3 sepsis screen is negative. Does the patient have a suspected source of infection? No. Patient's initial sepsis screen is negative. Historical: - Allergies: 19:15 No Known Allergies; vc1 - Home Meds: 19:15 amlodipine 10 mg tab 1 tab once daily [Active]; atenolol 25 mg Oral tab 1 tab once vc1 daily [Active]; lisinopril 20 mg Oral tab 1 tab once daily [Active]; spironolactone 25 mg Oral tab 1 tab 2 times per day [Active]; hydrochlorothiazide 25 mg Oral tab 1 tab once daily [Active]; levetiracetam 500 mg Oral tab daily [Active]; fluoxetine 20 mg Oral cap 1 cap once daily [Active]; BRILINTA 90 mg Oral tab 1 tab 2 times per day [Active]; doxazosin 4 mg Oral tab 1 tab once daily [Active]; meloxicam 7.5 mg Oral tab 1 tab once daily [Active]; metformin 1,000 mg Oral tr24 1 tab once daily [Active]; pravastatin 40 mg Oral tab nightly [Active]; clonidine HCl 0.1 mg Oral Tablet, Extended Release 12 hr daily [Active]; Ozempic subcutaneous every week [Active]; - PMHx: 19:15 CVA; Diabetes - NIDDM; Hypertension; Pulmonary Embolism; Seizures; TIA; vc1 - PSHx: 19:15 cardiac stent; vc1 - Immunization history:: Client reports receiving the 2nd dose of the Covid vaccine. - Social history:: Smoking status: Patient denies any tobacco usage or history of. - Family history:: not pertinent. - Hospitalizations: : No recent hospitalization is reported. Screenin:23 [facility] ED Fall Risk Assessment (Adult) History of falling in the last 3 months, kd3 including since admission No falls in past 3 months (0 pts) Confusion or Disorientation No (0 pts) Intoxicated or Sedated No (0 pts) Impaired Gait No (0 pts) Mobility Assist Device Used No (0 pt) Altered Elimination No (0 pt) Score/Fall Risk Level 0 - 2 = Low Risk Maintained a safe environment. Abuse screen: Denies threats or abuse. Denies injuries from another. Nutritional screening: No deficits noted. Tuberculosis screening: No symptoms or risk factors identified. Assessment: 20:23 General: Appears uncomfortable, Behavior is calm, cooperative. Pain: Complains of pain kd3 in chest. Neuro: Level of Consciousness is awake, alert, obeys commands, Oriented to person, place, time, situation. Respiratory: Airway is patent Trachea midline Respiratory effort is even, unlabored, Respiratory pattern is regular, symmetrical. 21:07 Reassessment: Patient appears in no apparent distress at this time. Patient and/or aa9 family updated on plan of care and expected duration. Pain level reassessed. Pain: Denies pain. Respiratory: Airway is patent Respiratory effort is even, unlabored. 21:29 Reassessment: Patient appears in no apparent distress at this time. 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 aa9 22:47 Reassessment: Patient appears in no apparent distress at this time. Patient and/or aa9 family updated on plan of care and expected duration. Pain level reassessed. Patient is alert, oriented x 3, equal unlabored respirations, skin warm/dry/pink. Patient denies pain at this time. 23:06 Reassessment: Patient appears in no apparent distress at this time. Patient and/or aa9 family updated on plan of care and expected duration. Pain level reassessed. Patient denies pain at this time. 23:17 Reassessment: Patient appears in no apparent distress at this time. Patient and/or aa9 family updated on plan of care and expected duration. Pain level reassessed. Patient is alert, oriented x 3, equal unlabored respirations, skin warm/dry/pink. Patient denies pain at this time. Vital Signs: 19:13 Weight 127.01 kg; Height 6 ft. 1 in. ; Pain 3/10; vc1 19:19 BP 148 / 91; Pulse 94; Resp 15 S; Temp 97.6(O); Pulse Ox 99% ; vc1 20:30 BP 153 / 87; Pulse 88; Resp 16; Pulse Ox 99% on R/A; aa9 22:39 Pulse 83; Resp 17 S; Pulse Ox 99% on R/A; aa9 23:07 BP 146 / 98; aa9 19:13 Body Mass Index 36.94 (127.01 kg, 185.42 cm) vc1 19:13 Pain Scale: Adult vc1 ED Course: 19:11 Patient arrived in ED. mr 19:15 Triage completed. vc1 19:18 Arm band placed on right wrist. vc1 19:25 Kelechi Campbell MD is Attending Physician. rn 19:44 Helena Ramirez, ELAINE is Primary Nurse. kd3 20:08 Basic Metabolic Panel Sent. aa9 20:08 CBC with Diff Sent. aa9 20:08 NT PRO-BNP Sent. aa9 20:08 PT-INR Sent. aa9 20:08 COVID-19/FLU A+B Sent. aa9 20:09 Inserted saline lock: 20 gauge in right hand, using aseptic technique. aa9 20:15 XRAY Chest (1 view) In Process Unspecified. EDMS 20:24 Patient has correct armband on for positive identification. Bed in low position. kd3 21:50 Inserted saline lock: 22 gauge in right forearm, using aseptic technique. kd3 21:52 CT Head Brain wo Cont In Process Unspecified. EDMS 21:53 CT Aorta for Dissection In Process Unspecified. EDMS 22:13 Radha Andrade MD is Hospitalizing Provider. rn 22:39 Client placed on continuous cardiac and pulse oximetry monitoring. NIBP monitoring aa9 applied. Diet: Patient given snack. Patient given water. Tolerated well. 23:03 No provider procedures requiring assistance completed. Patient admitted, IV remains in aa9 place. Administered Medications: No medications were administered Medication: 20:24 VIS not applicable for this client. kd3 Outcome: 22:14 Decision to Hospitalize by Provider. rn 23:06 Condition: stable aa9 23:16 Admitted to Med/surg accompanied by tech, room 230, with chart, Report called to aa9 Kala 23:16 Instructed on the need for admit. 07/14 00:31 Patient left the ED. aa9 Signatures: Dispatcher [employer] EDOK Venkata Xochitl Kelechi Zarate MD MD rn Doucette, Kyli, RN RN kd3 Gela Brown RN RN vc1 Reny Wharton RN RN aa9
--- NOTE | 2022-07-13 22:14 | EDPHYS ---
Physician Documentation [facility] Name: Monty Faulkner Age: 62 yrs Sex: Male : 1960 Arrival Date: 07/13/2022 Time: 19:11 Bed 8 Private MD: ED Physician Kelechi Campbell HPI: 07/13 19:47 This 62 yrs old Black Male presents to ER via Ambulatory with complaints of Chest rn Discomfort. 19:47 The patient or guardian reports chest pain that is located primarily in the substernal rn area. 19:48 Onset: 1 hour(s) ago. The pain radiates to both arms. Associated signs and symptoms: rn Pertinent negatives: abdominal pain, cough, diaphoresis, headache, lower extremity pain, lower extremity swelling, near syncope, palpitations, shortness of breath, syncope, vomiting. 19:48 The chest pain is described as aching. Duration: The patient or guardian reports a rn single episode, that lasted 30 minute(s). Modifying factors: The symptoms are alleviated by nothing. the symptoms are aggravated by nothing. Severity of pain: At its worst the pain was moderate in the emergency department the pain has resolved. The patient has not experienced similar symptoms in the past. The patient has not recently seen a physician. Pt reports chest pain that began 1 hour SPRAY [employer], with radiation/tingling of both arms, all symptoms have resolved after 30 min without intervention. Pt has CAD with stents, hx of CVA and TIA, and PE. Takes brilinta. Currently asymptomatic. No abd pain. No fever. + cough and congestion. . Historical: - Allergies: 19:15 No Known Allergies; vc1 - Home Meds: 19:15 amlodipine 10 mg tab 1 tab once daily [Active]; atenolol 25 mg Oral tab 1 tab once vc1 daily [Active]; lisinopril 20 mg Oral tab 1 tab once daily [Active]; spironolactone 25 mg Oral tab 1 tab 2 times per day [Active]; hydrochlorothiazide 25 mg Oral tab 1 tab once daily [Active]; levetiracetam 500 mg Oral tab daily [Active]; fluoxetine 20 mg Oral cap 1 cap once daily [Active]; BRILINTA 90 mg Oral tab 1 tab 2 times per day [Active]; doxazosin 4 mg Oral tab 1 tab once daily [Active]; meloxicam 7.5 mg Oral tab 1 tab once daily [Active]; metformin 1,000 mg Oral tr24 1 tab once daily [Active]; pravastatin 40 mg Oral tab nightly [Active]; clonidine HCl 0.1 mg Oral Tablet, Extended Release 12 hr daily [Active]; Ozempic subcutaneous every week [Active]; - PMHx: 19:15 CVA; Diabetes - NIDDM; Hypertension; Pulmonary Embolism; Seizures; TIA; vc1 - PSHx: 19:15 cardiac stent; vc1 - Immunization history:: Client reports receiving the 2nd dose of the Covid vaccine. - Social history:: Smoking status: Patient denies any tobacco usage or history of. - Family history:: not pertinent. - Hospitalizations: : No recent hospitalization is reported. ROS: 19:48 Constitutional: Negative for fever, chills, and weight loss, Eyes: Negative for injury, rn pain, redness, and discharge, Neck: Negative for injury, pain, and swelling, Cardiovascular: + chest pain Respiratory: Negative for shortness of breath, wheezing, and pleuritic chest pain Abdomen/GI: Negative for abdominal pain, nausea, vomiting, diarrhea, and constipation, Back: Negative for injury and pain, MS/Extremity: Negative for injury and deformity, Skin: Negative for injury, rash, and discoloration, Neuro: Negative for headache, and seizure Exam: 19:33 ECG was reviewed by the Attending Physician. rn 19:48 Constitutional: This is a well developed, well nourished patient who is awake, alert, rn and in no acute distress. Head/Face: Normocephalic, atraumatic. Cardiovascular: Regular rate and rhythm. No pulse deficits. Respiratory: No increased work of breathing, no retractions or nasal flaring. Abdomen/GI: Soft, non-tender Skin: Warm, dry MS/ Extremity: Pulses equal, no cyanosis. Neuro: Awake and alert, GCS 15, oriented to person, place, time, and situation. No facial droop. Motor strength 5/5 in all extremities. Sensory grossly intact. Cerebellar exam normal. Normal gait. Vital Signs: 19:13 Weight 127.01 kg; Height 6 ft. 1 in. ; Pain 3/10; vc1 19:19 BP 148 / 91; Pulse 94; Resp 15 S; Temp 97.6(O); Pulse Ox 99% ; vc1 20:30 BP 153 / 87; Pulse 88; Resp 16; Pulse Ox 99% on R/A; aa9 22:39 Pulse 83; Resp 17 S; Pulse Ox 99% on R/A; aa9 23:07 BP 146 / 98; aa9 19:13 Body Mass Index 36.94 (127.01 kg, 185.42 cm) vc1 19:13 Pain Scale: Adult vc1 MDM: 19:25 Patient medically screened. rn 22:12 Differential diagnosis: acute myocardial infarction, acute pericarditis, anxiety, rn coronary artery disease chest wall pain, costochondritis, esophagitis, gastritis, gastroesophageal reflux disease (GERD), pleurisy, pneumonia, pneumothorax, pulmonary embolus, stable angina, thoracic aortic disection, unstable angina. HEART Score: History: Moderately Suspicious (1), ECG: Non specific repolarization disturbance / LBTB / PM (1), Age: > 45 and < 65 years (1), Risk Factors: > or = 3 Risk factors for atherosclerotic disease (2), Troponin: < or = 1 x Normal Limit (0), Total Score = 5. Data reviewed: vital signs, nurses notes, lab test result(s), EKG, radiologic studies, CT scan, plain films, and as a result, I will admit patient. Consideration of Admission/Observation Patient was admitted/placed on observation. Escalation of care including admission/observation considered. Independent interpretation of the following test(s) in the Emergency Department EKG: See my EKG interpretation above X-Ray: My interpretation is CXR images neg for pneumothorax per my interpretation. Counseling: I had a detailed discussion with the patient and/or guardian regarding: the historical points, exam findings, and any diagnostic results supporting the discharge/admit diagnosis, lab results, radiology results, the need for further work-up and treatment in the hospital. Response to treatment: the patient's symptoms have markedly improved after treatment, and as a result, I will admit patient. 22:14 ED course: CT shows likely chronic infarcts of brain, chest pain and tingling both rn resolved. Will admit for further eval and care. . 07/13 19:27 Order name: Basic Metabolic Panel; Complete Time: 20:54 rn 07/13 19:27 Order name: CBC with Diff; Complete Time: 20:54 rn 07/13 19:27 Order name: NT PRO-BNP; Complete Time: 20:54 rn 07/13 19:27 Order name: PT-INR; Complete Time: 20:54 rn 07/13 19:27 Order name: Troponin HS; Complete Time: 20:54 rn 07/13 19:48 Order name: COVID-19/FLU A+B; Complete Time: 21:18 rn 07/13 22:12 Order name: LFT's; Complete Time: 00:31 rn 07/13 19:27 Order name: XRAY Chest (1 view); Complete Time: 20:54 rn 07/13 19:27 Order name: CT Head Brain wo Cont; Complete Time: 22:03 rn 07/13 19:35 Order name: CT Aorta for Dissection; Complete Time: 22:12 rn 07/13 19:27 Order name: EKG; Complete Time: 19:28 rn 07/13 19:27 Order name: Cardiac monitoring; Complete Time: 20:08 rn 07/13 19:27 Order name: EKG - Nurse/Tech; Complete Time: 19:45 rn 07/13 19:27 Order name: IV Saline Lock; Complete Time: 20:08 rn 07/13 19:27 Order name: Labs collected and sent; Complete Time: 20:08 rn 07/13 19:27 Order name: O2 Per Protocol; Complete Time: 20:08 rn 07/13 19:27 Order name: O2 Sat Monitoring; Complete Time: 20:08 rn EC:33 Rate is 93 beats/min. Rhythm is regular. QRS is positive in lead I and negative in lead rn aVF. IL interval is normal. QRS interval is prolonged at 154 msec. QT interval is normal. No Q waves. T waves are Normal. No ST changes noted. Clinical impression: NSR w/ Non-specific ST/T Changes. Interpreted by me. Reviewed by me. Administered Medications: No medications were administered Disposition Summary: 07/13/22 22:14 Hospitalization Ordered Hospitalization Status: Observation rn Provider: Radha Andrade rn Location: Telemetry/MedSurg (observation) rn Condition: Stable rn Problem: new rn Symptoms: have improved rn Bed/Room Type: Standard rn Room Assignment: 230(07/13/22 22:52) mw Diagnosis - Chest pain, unspecified rn Forms: - Medication Reconciliation Form rn - SBAR form rn Signatures: Dispatcher [employer] Sera Bahena RN RN mw Kelechi Campbell MD MD rn Calcote, Vanessa, RN RN Adela Da Silva PA-C PA-C [id number] Corrections: (The following items were deleted from the chart) 22:52 22:14 gayle nolan
[2022-07-13 22:34] LABS: ALT/SGPT 33 U/L (16-61); AST/SGOT 25 U/L (15-37); Albumin 3.3 g/dL (3.4-5.0); Alkaline Phosphatase 90 U/L (45-117); Bilirubin Direct < 0.1 mg/dL (0-0.2); Bilirubin Total 0.4 mg/dL (0.2-1.0); Protein, Total 7.9 g/dL (6.4-8.2)
--- NOTE | 2022-07-13 22:40 | P.HP ---
Certification for Inpatient Patient admitted to: Observation With expected LOS: <2 Midnights Patient will require the following post-hospital care: None Practitioner: I am a practitioner with admitting privileges, knowledge of patient current condition, hospital course, and medical plan of care. Services: Services provided to patient in accordance with Admission requirements found in Title 42 Section 412.3 of the Code of Federal Regulations Patient History Date of Service: 07/14/22 Reason for admission: Chest Pain History of Present Illness: Patient is a 62-year-old male with past medical history of byo-ixlikco-jiqvkqpyu type 2 diabetes, CVA, hypertension, PE, seizures, CAD who presented to the emergency department with complaints of chest discomfort, shortness of breath, and intermittent numbness/tingling of both arms. He states the symptoms began 1 hour RESIN COATER, lasted 30 minutes, and have since resolved without intervention. His work-up was unremarkable chest x-ray, EKG, troponin. Head CT was obtained given his CVA history and showed "No acute intracranial hemorrhage or acute large vascular territory infarct. New left clarke radiata hypoattenuation is probably a small chronic lacunar infarct but given the patient's symptoms involving the right upper extremity, MRI could better assess. Remote right frontal lobe and right basal ganglia infarct." ED provider wishes admit patient for observation, for ACS rule out. Allergies No Known Allergies Allergy (Verified 05/11/17 03:39) Home medications list reviewed: Yes Home Medications: Amlodipine [Norvasc*] 10 mg PO DAILY 05/11/17 Aspirin [Aspirin EC 81 MG] 162 mg PO DAILY #30 tablet. 05/11/17 Codeine/APAP [Tylenol W/Codeine #3 tab] 1 tab PO Q6HP PRN #30 tab 05/11/17 Doxazosin [Cardura*] 4 mg PO DAILY 05/11/17 Fluoxetine HCl 20 mg PO DAILY 05/11/17 Lidocaine 4% Patch [Lidoderm 5% Patch*] 1 patch TD DAILY #10 patch 05/11/17 Metformin HCl [Metformin ER Osmotic] 1,000 mg PO DAILY 05/11/17 Pravastatin Sodium 40 mg PO BEDTIME 05/11/17 Spironolactone [Aldactone*] 25 mg PO BID 05/11/17 atenoloL [Tenormin*] 25 mg PO DAILY 05/11/17 hydroCHLOROthiazide [Hydrochlorothiazide] 25 mg PO DAILY 05/11/17 levETIRAcetam [Keppra*] 500 mg PO DAILY 05/11/17 lisinopriL [Prinivil*] 20 mg PO DAILY 05/11/17 - Past Medical/Surgical History Diabetic: Yes -: DM -: Epilepsy -: pulmonary embolism -: CVA -: CAD -: Hypertension -: cyst removal Left lower forearm -: Cardiac cath with 1 stent Psychosocial/ Personal History: Patient is . - Family History Father -: Heart disease Mother -: Diabetes - Social History Smoking Status: Never smoker Alcohol use: Yes CD- Drugs: No Caffeine use: No Place of Residence: Home Review of Systems Respiratory: Shortness of Breath Cardiovascular: Chest Pain Physical Examination - Vital Signs Temperature: 97.6 F Blood Pressure: 148/91 Pulse: 83 Respirations: 15 Pulse Ox (%): 97 - Physical Exam General: Alert, In no apparent distress HEENT: Atraumatic, EOMI, Sclerae nonicteric Neck: Supple, 2+ carotid pulse no bruit Respiratory: Clear to auscultation bilaterally, Normal air movement Cardiovascular: Regular rate/rhythm, Normal S1 S2 Gastrointestinal: Normal bowel sounds, No tenderness Musculoskeletal: No tenderness Integumentary: No rashes Neurological: Normal speech, Normal affect - Studies Laboratory Data (last 24 hrs) 07/13/22 20:20: PT 12.1, INR 1.10 07/13/22 20:20: WBC 7.10, Hgb 13.5 L, Hct 39.8, Plt Count 169 07/13/22 20:20: Sodium 139, Potassium 3.5, BUN 16, Creatinine 1.32 H, Glucose 137 H 07/13/22 20:05: Total Bilirubin 0.4, AST 25, ALT 33, Alkaline Phosphatase 90 Assessment and Plan - Problems (Diagnosis) (1) Chest pain Current Visit: Yes Status: Acute Qualifiers: Chest pain type: unspecified Qualified Code(s): R07.9 - Chest pain, unspecified (2) Chronic kidney disease Current Visit: Yes Status: Chronic (3) Hypertension Current Visit: Yes Status: Chronic Qualifiers: Hypertension type: primary hypertension Qualified Code(s): I10 - Essential (primary) hypertension (4) Coronary artery disease Current Visit: Yes Status: Chronic Qualifiers: Coronary Disease-Associated Artery/Lesion type: squaxin artery [place] vs. transplanted heart: squaxin heart Associated angina: with unstable angina Qualified Code(s): I25.110 - Atherosclerotic heart disease of squaxin coronary artery with unstable angina pectoris (5) Type 2 diabetes mellitus Current Visit: Yes Status: Chronic Qualifiers: Diabetes mellitus skilled nursing insulin use: without skilled nursing use Diabetes mellitus complication status: with hyperglycemia Qualified Code(s): E11.65 - Type 2 diabetes mellitus with hyperglycemia - Plan Patient is admitted for observation, for ACS rule out. Initial troponin negative, will trend. Cardiology consulted, monitor on telemetry. 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 Echo ordered as well as carotid US, lipid panel, TSH, A1c. Consider MRI brain if abnormal symptoms persist given history of CVA. Aspirin and atorvastatin daily. Monitor and replete electrolytes per protocol. Reconcile and continue home medications. Lovenox for VTE prophylaxis. Full code. Discharge Plan: Home Plan to discharge in: 24 Hours - Advance Directives Does patient have a Living Will: No Does patient have a Durable POA for Healthcare: No - Code Status/Comfort Care Code Status Assessed: Yes Code Status: Full Code Physician Review: Patient Assessed, Agree with Above Assessment and Plan Critical Care: No Time Spent Managing Pts Care (In Minutes): 50
[2022-07-13] MEDS ORDERED: ACETAMINOPHEN 500 MG TAB PO PRN (23:29)
[2022-07-13] MEDS ORDERED: ONDANSETRON 4 MG/2 ML VIAL IV PRN (23:29)
[2022-07-13] MEDS ORDERED: ALBUTEROL 2.5 MG/3 ML NEB SOL NEB PRN (23:29)
[2022-07-14 01:43] VITALS: BMI 36.9
[2022-07-14] MEDS ORDERED: methocarbamoL 500 MG TAB PO PRN (03:36)
[2022-07-14] MEDS ORDERED: CODEINE 30MG/APAP 300MG TAB PO PRN (03:36)
[2022-07-14 05:00] VITALS: O2SAT 97
[2022-07-14 05:58] LABS: Absolute Lymphocytes (CBC) 2.5 K/uL (0.7-4.9); Hematocrit 40.5 % (39.6-49.0); MCV 87.8 fL (80-100); MPV 9.5 fL (7.6-11.3); RBC Red Blood Cell Count 4.62 M/uL (4.33-5.43)
[2022-07-14 06:27] LABS: Magnesium 2.1 mg/dL (1.6-2.4); Phosphorus 3.7 mg/dL (2.5-4.9); Thyroid Stimulating Hormone 0.824 uIU/mL (0.358-3.740); Troponin High Sensitivity 12.9 pg/mL (<58.9)
[2022-07-14] MEDS: INSULIN -REGULAR HUMAN 50 UNIT/0.5 ML ML SQ SCH ×2 (07:30→11:30)
[2022-07-14] MEDS ORDERED: PNEUMOCOCCAL VACCINE 0.5 ML IMVAC ONE (08:00)
--- NOTE | 2022-07-14 08:59 | RAD REPORT ---
EXAM DESCRIPTION: - CP - 07/14/2022 5:20 am CLINICAL HISTORY: chest pain, history of cva Headache, CVA COMPARISON: Carotid Artery Bilateral dated 05/11/2017 TECHNIQUE: Real-time sonographic evaluation of both carotid systems was performed. Doppler interroga tion was performed with waveform tracing bilaterally. FINDINGS: Normal high resistance waveforms are noted in both external carotid arteries. The common c arotid arteries and internal carotid arteries show normal low resistance waveforms. No significant plaque formation is seen. Peak systolic and end diastolic velocity values and the ICA/ CCA ratios are in the non-hemodynamically significant range. Antegrade flow seen in both vertebral arteries. IMPRESSION: No significant atherosclerotic changes noted. No evidence of a hemodynamically significant stenosis.
[2022-07-14] MEDS ORDERED: TICAGRELOR 90 MG TABLET PO SCH (09:00)
[2022-07-14] MEDS ORDERED: lisinopriL 20 MG TAB PO SCH (09:00)
[2022-07-14] MEDS ORDERED: ASPIRIN EC 81 MG TAB PO SCH (09:00)
[2022-07-14] MEDS ORDERED: hydroCHLOROthiazide 25 MG TAB PO SCH (09:00)
[2022-07-14] MEDS ORDERED: atenoloL 25 MG TAB PO SCH (09:00)
[2022-07-14] MEDS ORDERED: FLUOXETINE 20 MG CAP PO SCH (09:00)
[2022-07-14] MEDS ORDERED: levETIRAcetam 500 MG TAB PO SCH (09:00)
[2022-07-14 12:53] VITALS: BP 160/96; TEMP 98.1
--- NOTE | 2022-07-14 13:40 | EKG ---
Test Date: 2022-07-13 Test Time: 19:31:32 Social Media Marketer: JEET MEASUREMENT RESULTS: Intervals: Rate: 93 IL: 170 QRSD: 154 QT: 420 QTc: 522 Verdi: P: 56 IL: 170 QRS: -60 T: 116 INTERPRETIVE STATEMENTS: Normal sinus rhythm Left axis deviation Nonspecific intraventricular block Compared to ECG 09/10/2020 10:36:33 Left-axis deviation now present Left bundle-branch block no longer present Electronically Signed On 07-14-22 13:38:23 CDT by Amos Rob
[2022-07-14] MEDS ORDERED: ALBUTEROL 2.5 MG/3 ML NEB SOL NEB PRN (14:00)
--- NOTE | 2022-07-14 14:11 | ECHO ---
HEIGHT: 6 ft 1 in WEIGHT: 280 lb 0 oz DATE OF STUDY: 07/14/[address]: Adela Carlos 2-DIMENSIONAL: YES M.MODE: YES DOPPLER: YES COLOR FLOW: YES TDS: PORTABLE: YES DEFINITY: BUBBLE STUDY: DIAGNOSIS: CHEST PAIN, HISTORY OF CEREBRAL VASCULAR ACCIDENT CARDIAC HISTORY: CATHERIZATION: YES SURGERY: NO PROSTHETIC VALVE: NO PACEMAKER: NO MEASUREMENTS (cm) DIASTOLIC (NORMALS) SYSTOLIC (NORMALS) IVSd 1.2 (0.6-1.2) LA Diam 2.8 (1.9-4.0) LVEF 50% LVIDd 4.2 (3.5-5.7) LVIDs 3.3 (2.0-3.5) %FS 22% LVPWd 1.2 (0.6-1.2) Ao Diam 3.1 (2.0-3.7) 2 DIMENSIONAL ASSESSMENT: RIGHT ATRIUM: NORMAL LEFT ATRIUM: NORMAL RIGHT VENTRICLE: NORMAL LEFT VENTRICLE: MILDLY DEPRESSED EJECTION FRACTION TRICUSPID VALVE: TRACE TRICUSPID REGURGITATION MITRAL VALVE: NORMAL PULMONIC VALVE: NORMAL AORTIC VALVE: NORMAL PERICARDIAL EFFUSION: NONE AORTIC ROOT: NORMAL LEFT VENTRICULAR WALL MOTION: UNABLE TO EVALUATE (POOR WINDOWS) DOPPLER/COLOR FLOW: SEE BELOW COMMENTS: 1. VERY POOR WINDOWS 2. LEFT VENTRICULAR EJECTION FRACTION APPEARS MILDLY DEPRESSED 45-50% 3. MILD TRICUSPID REGURGITATION TECHNOLOGIST: PADMA CORONA
[2022-07-14] MEDS ORDERED: ATORVASTATIN 40 MG TAB PO SCH (21:00)
[2022-07-14] MEDS ORDERED: ATORVASTATIN 10 MG TAB PO SCH (21:00)
== END 2022-07-14 14:52 | disposition home or self-care (01) ==
LOC: ER 19:07 → ERHOLD 22:33 → 2ND 23:25
PROVIDERS: ADMIT Hospitalist; ATTEND Hospitalist
DX: R07.9 Chest pain, unspecified (principal); I25.10 Atherosclerotic heart disease of native coronary artery without angina pectoris; E11.22 Type 2 diabetes mellitus with diabetic chronic kidney disease; I12.9 Hypertensive chronic kidney disease with stage 1 through stage 4 chronic kidney disease, or unspecified chronic kidney disease; N18.9 Chronic kidney disease, unspecified; R20.0 Anesthesia of skin; Z86.711 Personal history of pulmonary embolism; Z20.822 Contact with and (suspected) exposure to COVID-19; Z86.73 Personal history of transient ischemic attack (TIA), and cerebral infarction without residual deficits
CPT/HCPCS: 93005; 93306; 85025 ×2; 80048 ×2; 36415; 83735; 84100; 85610; 80061; 82947 ×2; 80076; 84443; 83036; 84484 ×2; 83880; 0240U; 70450; 71275; 74175; 71045; 93880; 94760 ×2; 99285; Q9967; G0378 ×2

== ENCOUNTER 2023-04-02 08:10 | Inpatient (IN) | payer BC ==
[2023-04-02] MEDS ORDERED: ONDANSETRON 4 MG/2 ML VIAL ONE (08:52)
[2023-04-02] MEDS ORDERED: MORPHINE 4 MG/ML SYR ONE (08:52)
[2023-04-02 09:39] LABS: MCV 89.8 fL (80-100); RBC Red Blood Cell Count 4.45 M/uL (4.33-5.43)
[2023-04-02 09:40] LABS: MPV 9.2 fL (7.6-11.3); Platelets 206 thou/uL (152-406)
--- NOTE | 2023-04-02 09:46 | RAD REPORT ---
EXAM DESCRIPTION: CT - Head Brain Wo Cont - 04/02/2023 8:49 am CLINICAL HISTORY: repeated falls, possible head trauma COMPARISON: Head Brain Wo Cont dated 07/13/2022; Head Brain Wo Cont dated 09/10/2020 TECHNIQUE: Noncontrast head CT images were obtained without IV contrast. Multiplanar reformats were generated and reviewed. All CT scans are performed using dose optimization technique as appropriate and may include automated exposure control or mA/KV adjustment according to patient size. FINDINGS: No intracranial hemorrhage, mass, or edema. Midline structures are unremarkable. Normal ventricular caliber for age. New foci of hypoattenuation along the right middle cerebellar peduncle, extending into the superior f bhavana, and left posteroinferior cerebellar folia. Stable regions of encephalomalacia involving the rig ht frontal operculum, with limited mineralization, and the medial right temporal anterior pole, sugge stive of sequelae of remote ischemia. No abnormal extra-axial fluid collections. Other basal ganglia foci of mild hypoattenuation and patchy periventricular and deep white matter hyp odensities, nonspecific, but suggestive of chronic small vessel ischemic changes. Mastoid air cells and visualized portions of the paranasal sinuses are clear. No acute bony findings. IMPRESSION: New foci of hypoattenuation in the cerebellar hemispheres bilaterally, favoring subacute to chronic infarcts. Stable right frontal and temporal areas of encephalomalacia compatible with sequelae of remote ischem ia. Other stable findings as above.
--- NOTE | 2023-04-02 09:50 | RAD REPORT ---
EXAM DESCRIPTION: CT - Thorax Wo Con - 04/02/2023 8:49 am CLINICAL HISTORY: trauma, right sided rib eval COMPARISON: Chest For Pe Angio dated 06/16/2017; Thorax Wo Con dated 05/11/2017 TECHNIQUE: Axial thin cut images of the chest were obtained without IV contrast. Multiplanar reforma ts were generated and reviewed. All CT scans are performed using dose optimization technique as appropriate and may include automated exposure control or mA/KV adjustment according to patient size. FINDINGS: No mass or infiltrate in the lung parenchyma. No pleural thickening or pleural effusion. N o pneumothorax. No abnormal mediastinal or hilar masses or lymphadenopathy seen. No significant aortic or pulmonary a rtery findings. Assessment is limited in the absence of IV contrast. No chest wall mass or abnormal axillary lymphadenopathy. Evaluation of the solid abdominal structures reveals no suspicious findings. No acute rib abnormalities. IMPRESSION: No acute process within the chest.
[2023-04-02 09:56] LABS: Protime INR 1.04
[2023-04-02] MEDS ORDERED: NA CHLORIDE 0.9% 1,000 ML ONE ×2 (10:17→18:58)
[2023-04-02] MEDS ORDERED: METOCLOPRAMIDE 10 MG/2mL INJ ONE (10:20)
[2023-04-02 10:43] LABS: Troponin High Sensitivity 10.4 pg/mL (<58.9)
[2023-04-02 11:05] LABS: Specific Gravity 1.014 (1.005-1.030); Urine Bacteria None Seen /HPF (<20); Urine Bilirubin NEGATIVE (Negative); Urine Blood Negative (Negative); Urine Clarity Clear (Clear); Urine Color Colorless (Yellow); Urine Glucose NEGATIVE (Negative); Urine Mucus Slight /HPF (None Seen); Urine Protein NEGATIVE (Negative); Urine RBC None Seen /HPF (None Seen); Urine Urobilinogen Normal (Normal); Urine pH 5.5 (5.0-7.0)
--- NOTE | 2023-04-02 11:32 | EDPHYS ---
Physician Documentation [facility] Name: Monty Faulkner Age: 63 yrs Sex: Male : 1960 Arrival Date: 04/02/2023 Time: 08:10 Bed 16 Private MD: ED Physician Geraldo Villanueva HPI: 04/02 08:38 This 63 yrs old Black Male presents to ER via Ambulatory with complaints of Fall sb4 Injury, right chest wall pain. 08:38 Patient states that he sustained a mechanical fall yesterday while walking and sb4 states that this is the fourth time he has fallen within the past couple of weeks. Patient does not know why he falls. He denies any dizziness or weakness. He does have a history of diabetes, CVA, seizures, PE, TIA, hypertension and is on Brilinta. states that his speech was a little slurred yesterday but is better today. Patient is only complaining of right chest wall pain today and is concerned about a rib fracture or internal bleed. Historical: - Allergies: 08: No Known Allergies; hb - Home Meds: 15:23 amlodipine 10 mg tab 1 tab once daily [Active]; atenolol 25 mg Oral tab 1 tab once cp4 daily [Active]; BRILINTA 90 mg Oral tab 1 tab 2 times per day [Active]; clonidine HCl 0.1 mg Oral Tablet daily [Active]; doxazosin 4 mg Oral tab 1 tab once daily [Active]; fluoxetine 20 mg Oral cap 1 cap once daily [Active]; hydrochlorothiazide 25 mg Oral tab 1 tab once daily [Active]; levetiracetam 500 mg Oral tab daily [Active]; lisinopril 20 mg Oral tab 1 tab once daily [Active]; meloxicam 7.5 mg Oral tab 1 tab once daily [Active]; metformin 1 Oral tr24 1 tab once daily [Active]; Ozempic subcutaneous every week [Active]; pravastatin 40 mg Oral tab nightly [Active]; spironolactone 25 mg Oral tab 1 tab 2 times per day [Active]; - PMHx: 08:31 Diabetes - NIDDM; CVA; Seizures; Pulmonary Embolism; TIA; Hypertension; hb - PSHx: : cardiac stent; hb - Immunization history:: Adult Immunizations up to date. - Immunization history: Last tetanus immunization: - up to date. - Social history:: Smoking status: Patient denies any tobacco usage or history of. ROS: 08:38 Constitutional: Negative for fever, chills, and weight loss, sb4 08:38 MS/extremity: Positive for Right-sided chest wall pain, 08:38 All other systems are negative, Exam: 08:38 Constitutional: This is a well developed, well nourished patient who is awake, alert, sb4 and in no acute distress. Head/Face: Normocephalic, atraumatic. Eyes: Extra-ocular motions intact. Periorbital areas with no swelling, redness, or edema. ENT: Mucous membranes moist. Cardiovascular: Regular rate and rhythm with a normal S1 and S2. Respiratory: Lungs have equal breath sounds bilaterally, clear to auscultation and percussion. No rales, rhonchi or wheezes noted. No increased work of breathing, no retractions or nasal flaring. Abdomen/GI: Soft, non-tender, no distension. Skin: Warm, dry with normal turgor. Normal color with no rashes, no lesions, and no evidence of cellulitis. MS/ Extremity: Pulses equal, no cyanosis. Neurovascular intact. Full, normal range of motion. Neuro: Awake and alert, GCS 15, oriented to person, place, time, and situation. Motor strength 5/5 in all extremities. Sensory grossly intact. 08:38 Chest/axilla: Inspection: normal, Palpation: tenderness, that is moderate, of the right lateral anterior chest, that partially reproduces the patient's complaints, Vital Signs: 08:29 BP 176 / 116; Pulse 107; Resp 20; Temp 98.3(TE); Pulse Ox 100% on R/A; Weight 95.25 kg; hb Height 6 ft. 1 in. ; Pain 10/10; 08:32 BP 154 / 91; kc6 09:15 BP 154 / 88 RA Supine (auto/lg); Pulse 105; cp4 09:15 BP 169 / 98 RA Sitting (auto/lg); Pulse 114; cp4 09:15 BP 163 / 105 RA Standing (auto/lg); Pulse 121; cp4 10:08 BP 139 / 96; Pulse 112; Resp 22; Pulse Ox 95% ; cp4 11:00 BP 126 / 98; Pulse 108; Resp 20; Pulse Ox 96% ; cp4 12:00 BP 111 / 77; Pulse 109; Resp 20; Pulse Ox 96% ; cp4 13:00 BP 125 / 83; Pulse 118; Resp 20; Pulse Ox 98% ; cp4 19:00 BP 122 / 77; Pulse 121; Resp 18; Pulse Ox 96% ; cp4 08:29 Body Mass Index 27.71 (95.25 kg, 185.42 cm) hb 08:29 Pain Scale: Adult hb Dallas Coma Score: 11:00 Eye Response: spontaneous(4). Motor Response: obeys commands(6). Verbal Response: cp4 oriented(5). Total: 15. Trauma Score (Adult): 11:00 Eye Response: spontaneous(1); Verbal Response: oriented(1); Motor Response: obeys cp4 commands(2); Systolic BP: > 89 mm Hg(4); Respiratory Rate: 10 to 29 per min(4); Dallas Score: 15; Trauma Score: 12 MDM: 08:26 Patient medically screened. sb4 08:38 Differential diagnosis: closed head injury, contusion, fracture. sb4 11:30 Data reviewed: vital signs, nurses notes, lab test result(s), EKG, radiologic studies, sb4 I have discussed the patient's presentation/case with the attending Emergency Department Physician; and as a result, I will admit patient. Consideration of Admission/Observation Patient was admitted/placed on observation. Management of patient was discussed with the following: Hospitalist: Maicol HAAS. Historians other than the Patient: Spouse/Significant Other: . Care significantly affected by the following chronic conditions: Diabetes, Hypertension. Counseling: I had a detailed discussion with the patient and/or guardian regarding the historical points, exam findings, and any diagnostic results supporting the discharge/admit diagnosis, the presence of at least one elevated blood pressure reading (>120/80) during this emergency department visit, lab results, radiology results, the need for further work-up and treatment in the hospital. 04/02 08:35 Order name: CBC w/o diff; Complete Time: 09:44 sb4 04/02 08:35 Order name: BMP; Complete Time: 10:43 sb4 04/02 08:35 Order name: PT-INR; Complete Time: 09:57 sb4 12/11 10:11 Order name: Add On-Lab sb4 04/02 10:13 Order name: UAM; Complete Time: 11:05 sb4 04/02 10:17 Order name: Troponin High Sensitivity; Complete Time: 10:43 EDMS 04/02 11:33 Order name: Depakote; Complete Time: 17:07 sb4 04/02 17:53 Order name: Glucose, Ancillary Testing; Complete Time: 17:53 EDMS 04/02 08:34 Order name: Head Brain Wo Cont CT; Complete Time: 09:48 sb4 04/02 08:35 Order name: Chest Wo Con CT; Complete Time: 09:51 sb4 04/02 11:42 Order name: Brain Wo Cont; Complete Time: 13:48 EDMS 04/02 16:29 Order name: US; Complete Time: 16:34 EDMS 04/02 08:35 Order name: IV Start; Complete Time: 09:25 sb4 04/02 08:42 Order name: Orthostatics; Complete Time: 09:14 sb4 04/02 10:01 Order name: EKG - Nurse/Tech; Complete Time: 10:11 sb4 EC:13 Rate is 111 beats/min. Rhythm is regular, Sinus tachycardia with Left bundle branch sb4 block. MS interval is normal at 142 msec. QRS interval is normal at 150 msec. QT interval is normal at 378 msec. No Q waves. T waves are Normal. No ST changes noted. Clinical impression: Abnormal EKG without significant change. Interpreted by me. Reviewed by me. Administered Medications: 09:25 Drug: morphine IVP or IV 4 mg IVP once over 4 mins Route: IVP; Infused Over: 4 mins; cp4 Site: right antecubital; 12:23 Follow up: Response: No adverse reaction cp4 09:25 Drug: Ondansetron IVP 4 mg IVP once; over 2 minutes Route: IVP; Site: right antecubital;cp4 12:23 Follow up: Response: No adverse reaction cp4 10:06 Drug: metoCLOPramide IVP 10 mg IVP once; over 1 to 2 minutes Route: IVP; Site: right cp4 antecubital; 12:22 Follow up: Response: No adverse reaction cp4 10:07 Drug: NS 0.9% IV 1000 ml IV at 1 bolus Per protocol; 1000 mL bolus Route: IV; Rate: 1 cp4 bolus; Site: right antecubital; 12:23 Follow up: Response: No adverse reaction; IV Status: Completed infusion cp4 12:41 Drug: foLIC Acid IVPB 1 mg IVPB once Route: IVPB; Site: right antecubital; cp4 13:19 Follow up: Response: No adverse reaction; IV Status: Completed infusion cp4 Disposition: 13:42 I was immediately available on-site in the Emergency Department for consultation in the ms3 care of the patient. Disposition Summary: 04/02/23 11:32 Hospitalization Ordered Notes: Hospitalization Status: Inpatient Admission sb4 Provider: Fernandez Campbell sb4 Condition: Fair sb4 Problem: new sb4 Symptoms: are unchanged sb4 Bed/Room Type: Standard sb4 Location: Telemetry/MedSurg (Inpatient)(04/02/23 18:56) bd Room Assignment: [facility](04/02/23 18:56) bd Diagnosis - Repeated falls sb4 - Subacute cerebellar CVA sb4 Discharge Instructions: - Discharge Summary Sheet sb4 - Chest Contusion, Adult, [id number] sb4 - Fall Prevention in the Home, Adult, [id number] sb4 Forms: - Medication Reconciliation Form sb4 - SBAR form sb4 - Leadership Thank You Letter sb4 Signatures: Dispatcher [employer] EDJamila Hernández bd Meliza Rubio, RN RN Geraldo Villanueva, DO DO ms3 Adela Carlos PA-C PA-C sb4 Angela Avila cp4 Corrections: (The following items were deleted from the chart) 15:17 11:32 Telemetry/MedSurg (Inpatient) sb4 hb 15:17 11:32 sb4 hb 15:17 15:17 hb hb 18:56 15:17 [facility] ER HOLD hb bd 18:56 15:17 ERHOLD- hb bd
--- NOTE | 2023-04-02 11:32 | ER ---
Nurse's Notes [facility] Name: Monty Faulkner Age: 63 yrs Sex: Male : 1960 Arrival Date: 04/02/2023 Time: 08:10 Bed 16 Private MD: Diagnosis: Repeated falls;Subacute cerebellar CVA Presentation: 04/02 08:29 Chief complaint: Right lateral chest wall pain after mechanical fall from standing hb yesterday. reports hx of stroke with no deficits other that stuttering, yesterday had some slurred speech, today seems like he is stuttering more than normal. Coronavirus screen: At this time, the client does not indicate any symptoms associated with coronavirus-19. Ebola Screen: No symptoms or risks identified at this time. Initial Sepsis Screen: Does the patient meet any 2 criteria? No. Patient's initial sepsis screen is negative. Does the patient have a suspected source of infection? No. Patient's initial sepsis screen is negative. Risk Assessment: Do you want to hurt yourself or someone else? Patient reports no desire to harm self or others. Onset of symptoms was April 01, 2023. 08:29 Method Of Arrival: Ambulatory hb 08:29 Acuity: YAYA 3 hb 15:21 Care prior to arrival: None. Mechanism of Injury: Fall from standing position. Trauma cp4 event details: Injury occurred in the [facility]. Trauma Activation: Not Applicable Physician: ED Physician; Name: ; Notified At: ; Arrived At: Physician: General Surgeon; Name: ; Notified At: ; Arrived At: Physician: Radiology; Name: ; Notified At: ; Arrived At: Physician: Respiratory; Name: ; Notified At: ; Arrived At: Physician: Lab; Name: ; Notified At: ; Arrived At: Historical: - Allergies: 08:31 No Known Allergies; hb - Home Meds: 15:23 amlodipine 10 mg tab 1 tab once daily [Active]; atenolol 25 mg Oral tab 1 tab once cp4 daily [Active]; BRILINTA 90 mg Oral tab 1 tab 2 times per day [Active]; clonidine HCl 0.1 mg Oral Tablet daily [Active]; doxazosin 4 mg Oral tab 1 tab once daily [Active]; fluoxetine 20 mg Oral cap 1 cap once daily [Active]; hydrochlorothiazide 25 mg Oral tab 1 tab once daily [Active]; levetiracetam 500 mg Oral tab daily [Active]; lisinopril 20 mg Oral tab 1 tab once daily [Active]; meloxicam 7.5 mg Oral tab 1 tab once daily [Active]; metformin 1 Oral tr24 1 tab once daily [Active]; Ozempic subcutaneous every week [Active]; pravastatin 40 mg Oral tab nightly [Active]; spironolactone 25 mg Oral tab 1 tab 2 times per day [Active]; - PMHx: 08:31 Diabetes - NIDDM; CVA; Seizures; Pulmonary Embolism; TIA; Hypertension; hb - PSHx: 08: cardiac stent; hb - Immunization history:: Adult Immunizations up to date. - Immunization history: Last tetanus immunization: - up to date. - Social history:: Smoking status: Patient denies any tobacco usage or history of. Screenin:35 [facility] ED Fall Risk Assessment (Adult) History of falling in the last 3 months, cp4 including since admission Yes- single mechanical fall (1 pt) Confusion or Disorientation No (0 pts) Intoxicated or Sedated No (0 pts) Impaired Gait Yes (1 pt) Mobility Assist Device Used No (0 pt) Altered Elimination No (0 pt) Score/Fall Risk Level 3 or more points = High Risk Oriented to surroundings, Maintained a safe environment, Educated pt \T\ family on fall prevention, incl call for assistance when getting out of bed, Assessed \T\ reinforced patient's understanding of fall precautions, Provided non-skid footwear, Hourly rounding (assess needs \T\ fall precautionary measures) done. Abuse screen: Denies threats or abuse. Nutritional screening: No deficits noted. Tuberculosis screening: No symptoms or risk factors identified. Primary Survey: 09:00 NO uncontrolled hemorrhage observed. cp4 09:00 A: The client is awake and alert. The airway is patent. The client is alert. Airway: cp4 patent. Breathing/Chest: Spontaneous respiratory effort, equal unlabored respirations, breath sounds clear bilaterally, regular pattern, symmetrical chest rise and fall. Circulation: No external hemorrhage present. Regular and strong central pulse, skin warm/dry/normal color. Disability Pupils are equal, round, reactive to light and accommodation. Client is alert. Exposure/Environment: All clothing and personal items were removed. A warming method has been applied: A warm blanket has been provided to the patient. Reassessment Alertness and Airway: Awake and alert. The airway is patent. Breathing: Spontaneous respiratory effort, equal unlabored respirations, breath sounds clear bilaterally, regular pattern with symmetrical chest rise and fall. Respiratory effort Spontaneous Unlabored Breath sounds Clear Respiratory pattern Regular Circulation: No external hemorrhage noted. Regular and strong central pulse, skin warm/dry/normal color. Disability: Pupils Pupils are equal, round, reactive to light and accomodation. Alert. Secondary Survey: 12:22 HEENT: No deficits noted. Gastrointestinal: No deficits noted. : No deficits noted. cp4 Musculoskeletal: No deficits noted. Assessment: 09:35 General: Appears distressed, Behavior is calm, cooperative, appropriate for age. Pain: cp4 Complains of pain in right chest Pain currently is 10 out of 10 on a pain scale. Quality of pain is described as sharp. Vital Signs: 08:29 BP 176 / 116; Pulse 107; Resp 20; Temp 98.3(TE); Pulse Ox 100% on R/A; Weight 95.25 kg; hb Height 6 ft. 1 in. ; Pain 10/10; 08:32 BP 154 / 91; kc6 09:15 BP 154 / 88 RA Supine (auto/lg); Pulse 105; cp4 09:15 BP 169 / 98 RA Sitting (auto/lg); Pulse 114; cp4 09:15 BP 163 / 105 RA Standing (auto/lg); Pulse 121; cp4 10:08 BP 139 / 96; Pulse 112; Resp 22; Pulse Ox 95% ; cp4 11:00 BP 126 / 98; Pulse 108; Resp 20; Pulse Ox 96% ; cp4 12:00 BP 111 / 77; Pulse 109; Resp 20; Pulse Ox 96% ; cp4 13:00 BP 125 / 83; Pulse 118; Resp 20; Pulse Ox 98% ; cp4 19:00 BP 122 / 77; Pulse 121; Resp 18; Pulse Ox 96% ; cp4 08:29 Body Mass Index 27.71 (95.25 kg, 185.42 cm) hb 08:29 Pain Scale: Adult hb Katie Coma Score: 11:00 Eye Response: spontaneous(4). Motor Response: obeys commands(6). Verbal Response: cp4 oriented(5). Total: 15. Trauma Score (Adult): 11:00 Eye Response: spontaneous(1); Verbal Response: oriented(1); Motor Response: obeys cp4 commands(2); Systolic BP: > 89 mm Hg(4); Respiratory Rate: 10 to 29 per min(4); Vail Score: 15; Trauma Score: 12 ED Course: 08:14 Patient arrived in ED. mr 08:18 [facility] sb4 08:18 Geraldo Villanueva DO is Attending Physician. sb4 08:25 Arielle Arredondo, ELAINE is Primary Nurse. kc6 08:31 Triage completed. hb 08:51 Head Brain Wo Cont CT In Process Unspecified. EDMS 08:[address] In Process Unspecified. EDMS 09:35 Bed in low position. Call light in reach. Side rails up X2. cp4 09:35 No provider procedures requiring assistance completed. Inserted saline lock: 22 gauge cp4 in right antecubital area, using aseptic technique. Blood collected. 10:11 EKG done, by ED staff, reviewed by Adela Carlos PA-C. em1 10:15 Add On-Lab Sent. cp4 11:31 Fernandez Campbell MD is Hospitalizing Provider. sb4 12:24 Depakote Sent. cp4 14:57 Patient admitted, IV remains in place. cp4 15:21 Arm band placed on right wrist. Patient placed in waiting room. cp4 15:22 Provided Education on: admission. cp4 15:23 Patient maintains SpO2 saturation greater than 95% on room air. cp4 15:25 Thermoregulation: warm blanket given to patient. cp4 Administered Medications: 09:25 Drug: morphine IVP or IV 4 mg IVP once over 4 mins Route: IVP; Infused Over: 4 mins; cp4 Site: right antecubital; 12:23 Follow up: Response: No adverse reaction cp4 09:25 Drug: Ondansetron IVP 4 mg IVP once; over 2 minutes Route: IVP; Site: right antecubital;cp4 12:23 Follow up: Response: No adverse reaction cp4 10:06 Drug: metoCLOPramide IVP 10 mg IVP once; over 1 to 2 minutes Route: IVP; Site: right cp4 antecubital; 12:22 Follow up: Response: No adverse reaction cp4 10:07 Drug: NS 0.9% IV 1000 ml IV at 1 bolus Per protocol; 1000 mL bolus Route: IV; Rate: 1 cp4 bolus; Site: right antecubital; 12:23 Follow up: Response: No adverse reaction; IV Status: Completed infusion cp4 12:41 Drug: foLIC Acid IVPB 1 mg IVPB once Route: IVPB; Site: right antecubital; cp4 13:19 Follow up: Response: No adverse reaction; IV Status: Completed infusion cp4 Medication: 09:35 VIS not applicable for this client. cp4 Intake: 11:00 PO: 0ml; Total: 0ml. cp4 Output: 11:00 Urine: 0ml; Total: 0ml. cp4 Outcome: 11:32 Decision to Hospitalize by Provider. sb4 14:57 Admitted to ER Hold. Please see [facility] for further documentation. cp4 15:22 Condition: stable cp4 15:22 Patient's length of stay in the Emergency Department was greater than 2 hours. no cp4 bedsPatient's length of stay extended due to 20:11 Admitted to Tele accompanied by tech, via wheelchair, cp4 20:11 Condition: stable 20:11 Instructed on the need for admit, Demonstrated understanding of instructions, 20:35 Patient left the ED. cp4 Signatures: Dispatcher [employer] EDXochitl Georges, Kael Reg mr Virk Konstantin em1 Meliza Rubio, RN RN Arielle Hickman RN RN kc6 Adela Carlos, PAClaytonC PAClaytonC sbAngela De León cp4 Corrections: (The following items were deleted from the chart) 13:19 11:00 BP 111 / 77; Pulse 109bpm; Resp 20bpm; Pulse Ox 96%; cp4 cp4
--- NOTE | 2023-04-02 12:48 | P.HP ---
Certification for Inpatient Patient admitted to: Observation With expected LOS: <2 Midnights Patient will require the following post-hospital care: None Practitioner: I am a practitioner with admitting privileges, knowledge of patient current condition, hospital course, and medical plan of care. Services: Services provided to patient in accordance with Admission requirements found in Title 42 Section 412.3 of the Code of Federal Regulations <Maicol Tsai - Last Filed: 04/02/23 12:49> Patient History Date of Service: 04/02/23 Reason for admission: Subacute CVA, multiple falls History of Present Illness: 63-year-old male with history of previous CVA, seizure disorder, rud-dtftxyb-rdtchbpbx diabetes, hypertension, CAD, hyperlipidemia, history of PE presents to the emergency department chief complaint of multiple falls, stuttering speech. He reports he has had 4 or 5 falls in the last month, last night he was in the kitchen standing when he fell, he cannot tell me why or how he fell just that he ended up on the ground. He denies loss of consciousness, denies any prodrome symptoms of dizziness/lightheadedness, chest pain, palpitations shortness of breath or headache. He also reports he had stuttering which is developed over the course of the last 3 weeks or so. He is complaining of right thoracic chest wall pain after his fall. He was evaluated in the emergency department and his labs were significant for a creatinine of 1.53, baseline around 1.3, glucose 197 UA not concerning for urinary tract infection valproic acid level pending CT of the chest without contrast negative for acute findings CT of the head without contrast showed new foci of hypoattenuation in the cerebellar hemispheres bilaterally, favoring subacute to chronic infarcts. Stable right frontal and temporal areas of encephalomalacia compatible with sequelae of remote ischemia. ED provider wishes to admit under observation for subacute CVA, multiple falls. - Past Medical/Surgical History Diabetic: Yes -: BF-rxi-kbalhci-dependent -: Epilepsy -: pulmonary embolism -: CVA -: CAD -: Hypertension -: cyst removal Left lower forearm -: Cardiac cath with 1 stent Psychosocial/ Personal History: Patient is , lives at home with his - Family History Father -: Heart disease Mother -: Diabetes - Social History Smoking Status: Unknown if ever smoked Alcohol use: Yes CD- Drugs: No Caffeine use: No Place of Residence: Home <Maicol Tsai - Last Filed: 04/02/23 12:49> Date of Service: 04/02/23 <Fernandez Campbell - Last Filed: 04/02/23 16:33> Allergies No Known Allergies Allergy (Verified 05/11/17 03:39) Home Medications: Aspirin [Aspirin EC 81 MG] 162 mg PO DAILY #30 tablet. 05/11/17 Codeine/APAP [Tylenol W/Codeine #3 tab] 1 tab PO Q6HP PRN #30 tab 05/11/17 Fluoxetine HCl 40 mg PO DAILY 05/11/17 Pravastatin Sodium 40 mg PO BEDTIME 05/11/17 atenoloL [Tenormin*] 25 mg PO DAILY 05/11/17 hydroCHLOROthiazide [Hydrochlorothiazide] 25 mg PO DAILY 05/11/17 levETIRAcetam [Keppra*] 500 mg PO DAILY 05/11/17 lisinopriL [Prinivil*] 40 mg PO DAILY 05/11/17 Ticagrelor [Brilinta*] 90 mg PO DAILY 07/14/22 methocarbamoL [Methocarbamol] 500 mg PO PRN PRN 07/14/22 Review of Systems 10-point ROS is otherwise unremarkable Cardiovascular: Other (Right thoracic chest wall pain) Neurological: Change in Speech (stuttering) <Maicol Tsai - Last Filed: 04/02/23 12:49> Physical Examination - Physical Exam General: Alert, In no apparent distress, Oriented x3 HEENT: Atraumatic, PERRLA, Mucous membr. moist/pink, EOMI Neck: Supple, 2+ carotid pulse no bruit, No LAD Respiratory: Clear to auscultation bilaterally, Normal air movement Cardiovascular: Regular rate/rhythm, Normal S1 S2 Gastrointestinal: Normal bowel sounds Musculoskeletal: No tenderness Integumentary: No rashes Neurological: Normal tone, Sensation intact, Normal affect, Other (NIH score-3), Abnormal speech (Stuttering noted), Abnormal strength (Mild left facial droop) - Studies Laboratory Data (last 24 hrs) 04/02/23 04/02/23 04/02/23 09:25 09:25 09:25 WBC 9.70 Hgb 13.3 L Hct 40.0 Plt Count 206 PT 11.4 INR 1.04 Sodium 139 Potassium 4.0 BUN 20 H Creatinine 1.53 H Glucose 197 H <Maicol Tsai - Last Filed: 04/02/23 12:49> - Studies Laboratory Data (last 24 hrs) 04/02/23 04/02/23 04/02/23 09:25 09:25 09:25 WBC 9.70 Hgb 13.3 L Hct 40.0 Plt Count 206 PT 11.4 INR 1.04 Sodium 139 Potassium 4.0 BUN 20 H Creatinine 1.53 H Glucose 197 H <Fernandez Campbell - Last Filed: 04/02/23 16:33> Assessment and Plan - Plan Assessment: Subacute cerebellar ischemic CVA history of multiple CVA- Mild aphasia, stuttering, dysarthria Multiple falls Diabetes mellitus type [id number]-[id number]-lyftpgngz with hyperglycemia Hypertension History of seizure disorder History of pulmonary embolism CAD Plan: Subacute cerebellar ischemic CVA history of multiple CVA- Mild aphasia, stuttering, dysarthria Multiple falls MRI ordered, pending PT/speech therapy consult, neurology consult continue ASA, brilinta, statin, folic acid NIH-3, aphasia, dysarthria, mild left facial droop (facial droop from previous cva) Echo and carotid doppler ordered Hx of multiple CVA with long standing left sided facial droop and seizures Diabetes mellitus type [id number]-cyvzmkz-ekasopbum with hyperglycemia ACHS accucheck, SSI Hypertension History of seizure disorder Continue home meds History of pulmonary embolism Need to discuss with patient poor historian unclear if on anticoagulation CAD Continue home meds DVT PPX: Lovenox Code status: Full Discharge Plan: Home Plan to discharge in: 24 Hours - Advance Directives Does patient have a Living Will: No Does patient have a Durable POA for Healthcare: No - Code Status/Comfort Care Code Status Assessed: Yes (Full code) Critical Care: No Time Spent Managing Pts Care (In Minutes): 70 <Maicol Tsai - Last Filed: 04/02/23 12:49> Physician Review: Patient Assessed, Agree with Above Assessment and Plan <Fernandez Campbell - Last Filed: 04/02/23 16:33>
[2023-04-02] MEDS ORDERED: FOLIC ACID 5 MG/ML VIAL ONE (12:51)
--- NOTE | 2023-04-02 13:44 | RAD REPORT ---
EXAM DESCRIPTION: MRI - Brain Wo Cont - 04/02/2023 1:21 pm CLINICAL HISTORY: CVA COMPARISON: Head CT April 02, 2023 TECHNIQUE: Axial, sagittal, and coronal magnetic resonance images of the brain were obtained. FINDINGS: Old cerebellar infarctions. Cystic encephalomalacia right frontal lobe probably secondary to old infarction. Old thalamus and basal ganglia infarcts. Moderate signal within periventricular, deep and subcortical white matter probably ischemic changes s econdary to small vessel disease Diffusion-weighted/ADC mapping does not reveal evidence of acute infarction. The ventricles are normal caliber. An extra-axial fluid collection is not noted. Fluid within the sinuses/mastoids is not seen IMPRESSION: No acute intracranial abnormality noted
[2023-04-02] MEDS: NA CHLORIDE 0.9% 1,000 ML IV SCH (14:52)
[2023-04-02] MEDS ORDERED: ONDANSETRON 4 MG/2 ML VIAL IV PRN (14:52)
--- NOTE | 2023-04-02 16:28 | RAD REPORT ---
EXAM DESCRIPTION: USCarotid Artery Ztseqebiu17/11/2023 4:02 pm CLINICAL HISTORY: CVA COMPARISON: June 2022 FINDINGS: The velocity of the right internal carotid artery equals 83 cm/sec. The right ICA/CCA rati o normal The velocity of the left internal carotid artery equals 87 cm/sec. The left ICA/CCA ratio normal Mild plaque is present within the carotid arteries. The vertebral arteries demonstrate antegrade flow IMPRESSION: No significant abnormalities displayed NASCET criteria used. Mild 0-49% stenosis Moderate 50-69% stenosis Severe 70-99% stenosis
[2023-04-02] MEDS: INSULIN REGULAR (HUMAN) 100 UNIT/ML SQ SCH ×2 (16:30→21:00)
[2023-04-02 21:00] VITALS: O2SAT 96
[2023-04-02] MEDS: lamoTRIgine 25 MG TAB PO SCH (21:00)
[2023-04-02] MEDS ORDERED: lamoTRIgine 100 MG TAB PO ONE (22:00)
[2023-04-02] MEDS: ATORVASTATIN 40 MG TAB PO SCH (23:09)
[2023-04-03] MEDS: HYDROCODONE/APAP 5/325 MG TAB PO PRN ×3 (01:55→21:02)
[2023-04-03 03:28] LABS: Absolute Lymphocytes (CBC) 2.1 K/uL (0.7-4.9); Hematocrit 35.9 % (39.6-49.0); Lymphocytes % 23.1 % (15.3-44.8); MCV 90.1 fL (80-100); MPV 9.8 fL (7.6-11.3); Platelets 187 thou/uL (152-406); RBC Red Blood Cell Count 3.98 M/uL (4.33-5.43)
[2023-04-03 03:49] LABS: Potassium 4.3 mEq/L (3.5-5.1)
[2023-04-03] MEDS: atenoloL 25 MG TAB PO SCH (06:09)
[2023-04-03] MEDS: NA CHLORIDE 0.9% 1,000 ML IV SCH ×2 (06:09→17:32)
[2023-04-03] MEDS: INSULIN REGULAR (HUMAN) 100 UNIT/ML SQ SCH ×4 (07:30→21:02)
[2023-04-03] MEDS: lamoTRIgine 25 MG TAB PO SCH ×2 (09:00→14:00)
[2023-04-03] MEDS: ASPIRIN EC 81 MG TAB PO SCH (10:24)
[2023-04-03] MEDS: TICAGRELOR 90 MG TABLET PO SCH (10:24)
[2023-04-03] MEDS: FOLIC ACID 1 MG TABLET PO SCH (10:24)
[2023-04-03] MEDS: AMLODIPINE 10 MG TAB PO SCH (10:25)
[2023-04-03] MEDS: ENOXAPARIN 40 MG/0.4 ML SQ SCH (11:15)
[2023-04-03] MEDS ORDERED: levETIRAcetam 500 MG TAB PO SCH (13:00)
--- NOTE | 2023-04-03 13:45 | EKG ---
Test Date: 2023-04-02 Test Time: 10:08:43 Hospital Monitor: [facility] MEASUREMENT RESULTS: Intervals: Rate: 111 NE: 142 QRSD: 150 QT: 378 QTc: 514 [place]: P: 81 NE: 142 QRS: 11 T: 93 INTERPRETIVE STATEMENTS: Sinus tachycardia Left bundle branch block Abnormal ECG Compared to ECG 07/13/2022 19:31:32 Left bundle-branch block now present Sinus rhythm no longer present Left-axis deviation no longer present Electronically Signed On 04-03-23 13:40:42 [employer]ACT[employer]PERVISOR by Amos Rob
--- NOTE | 2023-04-03 16:26 | P.PN ---
Subjective Date of Service: 04/03/23 Chief Complaint: Subacute CVA, multiple falls No new complain. Patient reports intermittent falls, no prodrome or dizziness. Physical Examination - Vital Signs Temperature: 98.2 F Blood Pressure: 143/78 Pulse: 86 Respirations: 16 Pulse Ox (%): 93 Assessment And Plan - Plan Physical Exam General: Alert, In no apparent distress, Oriented x3 HEENT: Atraumatic, PERRLA, Mucous membr. moist/pink, EOMI Neck: Supple, 2+ carotid pulse no bruit, No LAD Respiratory: Clear to auscultation bilaterally, Normal air movement Cardiovascular: Regular rate/rhythm, Normal S1 S2 Gastrointestinal: Normal bowel sounds Musculoskeletal: No tenderness Integumentary: No rashes Neurological: Normal tone, Sensation intact, Normal affect, Other (NIH score-3), Abnormal speech (Stuttering noted), Abnormal strength (Mild left facial droop) Diagnosis: Subacute cerebellar ischemic CVA history of multiple CVA- Mild aphasia, stuttering, dysarthria Multiple falls Diabetes mellitus type 6rau-igwdevu-ihishxvvm with hyperglycemia Hypertension History of seizure disorder History of pulmonary embolism CAD Plan: Seizure disorder Mild aphasia, stuttering, dysarthria Multiple falls MRI: No acute CVA. Seen by PT. and he mbulated with therapy. Inpatient rehab recommended. Awaiting speech input. Case discussed with neurology Dr. Hernandez. Patient's symptoms most likely related to seizures per Dr. Hernandez. Patient is on low-dose Lamictal. Dr. Hernandez recommended startingn Keppra and titrate and then wean off the Lamictal. continue ASA, brilinta, statin, folic acid Echo is pending. Carotid Dopplers unremarkable. Social service consulted to evaluate for inpatient rehab placement. Diabetes mellitus type 9jpf-ssmrjag-rnrawihka with hyperglycemia ACHS accucheck, SSI Hypertension History of seizure disorder Continue home meds History of pulmonary embolism Not on anticoagulation. CAD Continue home meds DVT PPX: Lovenox Code status: Full Discharge Plan: Inpatient rehab.
[2023-04-03 17:59] VITALS: BMI 27.7
[2023-04-03] MEDS: lamoTRIgine 100 MG TAB PO SCH (21:01)
[2023-04-03] MEDS: ATORVASTATIN 40 MG TAB PO SCH (21:01)
[2023-04-04 03:59] LABS: Absolute Lymphocytes (CBC) 1.8 K/uL (0.7-4.9); Hematocrit 41.2 % (39.6-49.0); Lymphocytes % 25.6 % (15.3-44.8); MCV 89.9 fL (80-100); MPV 9.2 fL (7.6-11.3); Platelets 151 thou/uL (152-406); RBC Red Blood Cell Count 4.58 M/uL (4.33-5.43)
[2023-04-04] MEDS: atenoloL 25 MG TAB PO SCH (05:19)
[2023-04-04] MEDS: NA CHLORIDE 0.9% 1,000 ML IV SCH ×2 (06:52→20:12)
[2023-04-04] MEDS: INSULIN REGULAR (HUMAN) 100 UNIT/ML SQ SCH ×4 (07:30→21:34)
[2023-04-04] MEDS: AMLODIPINE 10 MG TAB PO SCH (10:03)
[2023-04-04] MEDS: ASPIRIN EC 81 MG TAB PO SCH (10:03)
[2023-04-04] MEDS: lamoTRIgine 150 MG TAB PO SCH (10:03)
[2023-04-04] MEDS: TICAGRELOR 90 MG TABLET PO SCH (10:03)
[2023-04-04] MEDS: FOLIC ACID 1 MG TABLET PO SCH (10:04)
[2023-04-04] MEDS: ENOXAPARIN 40 MG/0.4 ML SQ SCH (10:04)
--- NOTE | 2023-04-04 13:08 | P.PN ---
Subjective Date of Service: 04/04/23 Chief Complaint: Subacute CVA, multiple falls Patient has no new complaint. He reports intermittent stuttering Patient reports intermittent falls, no prodrome or dizziness. Physical Examination - Vital Signs Temperature: 98.2 F Blood Pressure: 137/89 Pulse: 91 Respirations: 20 Pulse Ox (%): 95 - Studies Laboratory Data (last 24 hrs) 04/04/23 04/04/23 03:07 03:07 WBC 7.20 Hgb 13.8 D Hct 41.2 Plt Count 151 L Sodium 139 Potassium 4.0 BUN 19 H Creatinine 1.53 H Glucose 114 H Assessment And Plan - Plan Physical Exam General: Alert, In no apparent distress, Oriented x3 HEENT: Atraumatic, PERRLA, Mucous membr. moist/pink, EOMI Neck: Supple, 2+ carotid pulse no bruit, No LAD Respiratory: Clear to auscultation bilaterally, Normal air movement Cardiovascular: Regular rate/rhythm, Normal S1 S2 Gastrointestinal: Normal bowel sounds Musculoskeletal: No tenderness Integumentary: No rashes Neurological: Normal tone, Sensation intact, Normal affect, Other (NIH score-3), Abnormal speech (Stuttering noted), Abnormal strength (Mild left facial droop) Diagnosis: Subacute cerebellar ischemic CVA history of multiple CVA- Mild aphasia, stuttering, dysarthria Multiple falls Diabetes mellitus type 0bbj-xnbqqnd-gfwqvkncc with hyperglycemia Hypertension History of seizure disorder History of pulmonary embolism CAD Plan: Seizure disorder Mild aphasia, stuttering, dysarthria Multiple falls History of cerebellar infarcts MRI: No acute CVA. It demonstrated old cerebellar infarcts Seen by PT. and he ambulated with therapy. Inpatient rehab recommended. Case discussed with neurology Dr. Hernandez. Patient's symptoms most likely related to seizures and prior cerebellar strokes per Dr. Hernandez. Patient is on low-dose Lamictal. Dr. Hernandez recommended starting Keppra and titrate and then wean off the Lamictal. continue ASA, brilinta, statin, folic acid Carotid Dopplers unremarkable. Echo is pending. Social service consulted to evaluate for inpatient rehab placement. Diabetes mellitus type 4mbe-ppzreea-jpflzosrc with hyperglycemia ACHS accucheck, SSI Hypertension Continue home meds History of pulmonary embolism Not on anticoagulation. CAD Continue home meds DVT PPX: Lovenox Code status: Full Discharge Plan: Inpatient rehab.
--- NOTE | 2023-04-04 13:37 | ECHO ---
HEIGHT: 6 ft 1 in WEIGHT: 209 lb 15.845 oz DATE OF STUDY: 04/04/[address]: Maicol Tsai NP 2-DIMENSIONAL: YES M.MODE: YES DOPPLER: YES COLOR FLOW: YES TDS: PORTABLE: YES DEFINITY: BUBBLE STUDY: DIAGNOSIS: STROKE CARDIAC HISTORY: CATHERIZATION: YES SURGERY: NO PROSTHETIC VALVE: NO PACEMAKER: NO MEASUREMENTS (cm) DIASTOLIC (NORMALS) SYSTOLIC (NORMALS) IVSd 1.1 (0.6-1.2) LA Diam 2.6 (1.9-4.0) LVEF 57% LVIDd 5.3 (3.5-5.7) LVIDs 3.7 (2.0-3.5) %FS 30% LVPWd 1.1 (0.6-1.2) Ao Diam 2.8 (2.0-3.7) 2 DIMENSIONAL ASSESSMENT: RIGHT ATRIUM: NORMAL LEFT ATRIUM: NORMAL RIGHT VENTRICLE: NORMAL LEFT VENTRICLE: NORMAL TRICUSPID VALVE: NORMAL MITRAL VALVE: NORMAL PULMONIC VALVE: NORMAL AORTIC VALVE: NORMAL PERICARDIAL EFFUSION: NONE AORTIC ROOT: NORMAL LEFT VENTRICULAR WALL MOTION: NORMAL DOPPLER/COLOR FLOW: SEE BELOW COMMENTS: 1. NORMAL LEFT VENTRICULAR EJECTION FRACTION 55-60% 2. NORMAL WALL MOTION 3. GRADE I DIASTOLIC DYSFUNCTION TECHNOLOGIST: PADMA CORONA
[2023-04-04] MEDS ORDERED: POLYETHYL GLY 3350 17 GM/DOSE PO ONE (20:19)
[2023-04-04] MEDS: ATORVASTATIN 40 MG TAB PO SCH (21:34)
[2023-04-04] MEDS: lamoTRIgine 100 MG TAB PO SCH (21:34)
[2023-04-05 04:11] LABS: Hematocrit 38.7 % (39.6-49.0); Lymphocytes % 27.6 % (15.3-44.8); MCV 89.7 fL (80-100); MPV 9.2 fL (7.6-11.3); Platelets 184 thou/uL (152-406); Potassium 3.8 mEq/L (3.5-5.1); RBC Red Blood Cell Count 4.32 M/uL (4.33-5.43)
[2023-04-05 05:13] VITALS: BP 143/71
[2023-04-05] MEDS: atenoloL 25 MG TAB PO SCH (06:05)
[2023-04-05] MEDS: INSULIN REGULAR (HUMAN) 100 UNIT/ML SQ SCH ×2 (07:30→11:30)
[2023-04-05] MEDS: AMLODIPINE 10 MG TAB PO SCH (08:38)
[2023-04-05] MEDS: TICAGRELOR 90 MG TABLET PO SCH (08:39)
[2023-04-05] MEDS: ASPIRIN EC 81 MG TAB PO SCH (08:39)
[2023-04-05] MEDS: NA CHLORIDE 0.9% 1,000 ML IV SCH (08:39)
[2023-04-05] MEDS: FOLIC ACID 1 MG TABLET PO SCH (08:40)
[2023-04-05] MEDS: ENOXAPARIN 40 MG/0.4 ML SQ SCH (08:40)
[2023-04-05] MEDS: lamoTRIgine 150 MG TAB PO SCH (09:00)
[2023-04-05 09:19] VITALS: TEMP 99
--- NOTE | 2023-04-06 06:42 | P.DS ---
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 Monty was admitted due to suspected subacute CVA and multiple falls. MRI of head without contrast reports "No acute intracranial abnormality noted". Case discussed with neurology Dr. Hernandez. Patient's symptoms most likely related to seizures and prior cerebellar strokes per Dr. Hernandez. Patient is on low- dose Lamictal. Dr. Hernandez recommended starting Keppra and titrate and then wean off the Lamictal. Monty has participated successfully with physical therapy and been evaluated by Occupational Therapy. He has been accepted to inpatient rehab and will be discharged today. He is in hemodynamically stable, ambulating with assistance from physical therapy, elevating p.o. diet and able to feed himself, gained some strength back in his right hand, urinating well, and on room air. On 03/06/2023, Monty was seen on morning rounds and deemed medically stable for discharge. Monty was discharged with instructions to schedule follow-up appointments with PCP and neurology. No new medications this admission. The patient and family members were given the opportunity to ask questions and reported no further questions. Furthermore, all questions were answered to the best of my ability. A copy of this discharge summary will be sent to the above providers to facilitate continuity of care. Today, I personally spent 55 minutes Monty, of which greater than 50% of the time was spent in patient education, counseling, and coordination of care as described above. . Vital Signs/Physical Exam: Temp Pulse Resp BP Pulse Ox 99.0 F 97 H 18 143/71 H 95 04/05/23 12:00 04/05/23 12:00 04/05/23 12:00 04/05/23 12:00 04/05/23 12:00 Laboratory Data at Discharge: WBC 7.30 thou/uL (4.3-10.9) 04/05/23 03:04 Hgb 13.1 g/dL (13.6-17.9) L 04/05/23 03:04 Hct 38.7 % (39.6-49.0) L 04/05/23 03:04 Plt Count 184 thou/uL (152-406) 04/05/23 03:04 PT 11.4 SECONDS (9.5-12.5) 04/02/23 09:25 INR 1.04 04/02/23 09:25 Sodium 140 mEq/L (136-145) 04/05/23 03:04 Potassium 3.8 mEq/L (3.5-5.1) 04/05/23 03:04 BUN 17 mg/dL (7-18) 04/05/23 03:04 Creatinine 1.41 mg/dL (0.70-1.30) H 04/05/23 03:04 Glucose 123 mg/dL (74-106) H 04/05/23 03:04 Triglycerides 59 mg/dL (<150) 04/03/23 01:38 Cholesterol 177 mg/dL (<200) 04/03/23 01:38 HDL Cholesterol 40 mg/dL (40-60) 04/03/23 01:38 Cholesterol/HDL Ratio 4.43 04/03/23 01:38 Home Medications: Aspirin [Aspirin EC 81 MG] 162 mg PO DAILY #30 tablet. 05/11/17 lisinopriL [Prinivil*] 40 mg PO DAILY 05/11/17 Ticagrelor [Brilinta*] 90 mg PO BID 07/14/22 Lamotrigine [Lamictal] 150 mg PO DAILY WITH BREAKFAST 04/02/23 Metformin HCl 500 mg PO BID 04/02/23 Sertraline [Zoloft*] 50 mg PO DAILY 04/02/23 Sildenafil Citrate 20 mg PO DAILY 04/02/23 lamoTRIgine [Lamotrigine] 200 mg PO BEDTIME 04/02/23 Amlodipine [Norvasc*] 10 mg PO DAILY tab 04/05/23 Atorvastatin Calcium [Lipitor] 40 mg PO BEDTIME tab 04/05/23 Folic Acid 1 mg PO DAILY 04/05/23 Hydrocodone 5/APAP 325 [[place] 5/325] 1 tab PO Q6H PRN 04/05/23 atenoloL [Tenormin*] 25 mg PO [id number] tab 04/05/23 Physician Discharge Instructions: Physical Exam General: Alert, In no apparent distress, Oriented x3 HEENT: Atraumatic, PERRLA, Mucous membr. moist/pink, EOMI Neck: Supple, 2+ carotid pulse no bruit, No LAD Respiratory: Clear to auscultation bilaterally, Normal air movement Cardiovascular: Regular rate/rhythm, Normal S1 S2 Gastrointestinal: Normal bowel sounds Musculoskeletal: No tenderness Integumentary: No rashes Neurological: Normal tone, Sensation intact, Normal affect, Other (NIH score-3), Abnormal speech (Stuttering noted), Abnormal strength (Mild left facial droop) 1. Please call and schedule a follow-up appointment with your PCP in 3-5 days - Please follow-up with your PCP for medication refills/adjustments 2. Please call and schedule a follow-up appointment with Dr. Hernandez, neurology, in 3-5 days 3. Continue with physical therapy and speech therapy 4. Continue with ADA 5. Fall precaution, continue with physical therapy to strengthen ambulation. 6. No new medications this admission Diet: ADA Activity: Fall precautions Followup: KAY VILLANUEVA [Primary Care Provider] - Time spent managing pt's care (in minutes): 55
== END 2023-04-05 13:59 | DRG 66 ==
LOC: ER 08:10 → ERHOLD 12:34 → 2ND 20:12 → OBSVTOIN 04-04 11:16
PROVIDERS: ADMIT Hospitalist; ATTEND Internal Medicine
DX: I63.9 Cerebral infarction, unspecified (principal); I10 Essential (primary) hypertension; E78.5 Hyperlipidemia, unspecified; E11.65 Type 2 diabetes mellitus with hyperglycemia; I69.328 Other speech and language deficits following cerebral infarction; I69.322 Dysarthria following cerebral infarction; I69.320 Aphasia following cerebral infarction; G40.909 Epilepsy, unspecified, not intractable, without status epilepticus; I25.10 Atherosclerotic heart disease of native coronary artery without angina pectoris; R29.810 Facial weakness; Z95.5 Presence of coronary angioplasty implant and graft; Z79.82 Long term (current) use of aspirin; Z79.84 Long term (current) use of oral hypoglycemic drugs; Z91.81 History of falling; Z86.711 Personal history of pulmonary embolism; Z79.899 Other long term (current) drug therapy; Z86.718 Personal history of other venous thrombosis and embolism; W19.XXXA Unspecified fall, initial encounter; Y93.01 Activity, walking, marching and hiking; Y92.9 Unspecified place or not applicable; Y99.9 Unspecified external cause status
CPT/HCPCS: 36415; 70450; 70551; 71250; 80048; 80061; 80164; 81001; 82947; 84484; 85025; 85027; 85610; 92523; 93005; 93306; 93880; 96361; 96365; 96375; 97110; 97112; 97116; 97161; 97165; 97530; 99285; J1650; J1815; J2405; J2765; J7030

== ENCOUNTER 2023-04-05 12:07 | Inpatient (IN) | payer BC ==
[2023-04-05 14:18] VITALS: BMI 41.5
[2023-04-05] MEDS ORDERED: GLUCAGON 1 MG/VIAL IM PRN (16:34)
[2023-04-05] MEDS ORDERED: D10W 250 ML BAG IV PRN (16:34)
[2023-04-05] MEDS: METFORMIN HCL 500 MG TAB PO SCH (16:45)
[2023-04-05] MEDS ORDERED: BISACODYL 10 MG RECTAL SUPP PR PRN (17:15)
[2023-04-05] MEDS: ATORVASTATIN 40 MG TAB PO SCH (20:03)
[2023-04-05] MEDS: DOCUSATE NA/SENNA CONC 1 TAB PO SCH (20:03)
[2023-04-05] MEDS: TICAGRELOR 90 MG TABLET PO SCH (20:03)
[2023-04-05] MEDS: LIDOCAINE 4% PATCH TOP SCH (20:04)
[2023-04-05] MEDS: TRAZODONE 50 MG TABLET PO SCH (20:04)
[2023-04-05] MEDS: INSULIN REGULAR (HUMAN) 100 UNIT/ML SQ SCH (20:05)
[2023-04-05] MEDS: lamoTRIgine 100 MG TAB PO SCH (20:05)
[2023-04-06 01:03] LABS: Specific Gravity 1.011 (1.005-1.030); Urine Bacteria <20 /HPF (<20); Urine Bilirubin NEGATIVE (Negative); Urine Blood Negative (Negative); Urine Clarity Clear (Clear); Urine Color Colorless (Yellow); Urine Glucose NEGATIVE (Negative); Urine Protein NEGATIVE (Negative); Urine RBC <5 /HPF (None Seen); Urine Urobilinogen Normal (Normal); Urine pH 5.5 (5.0-7.0)
--- NOTE | 2023-04-06 01:25 | HP ---
Date of Admission: 04/05/2023 Time Of Service: 7 p.m. Chief Complaint: "I had strokes and I am falling a lot." History Of Present Illness: Mr. Faulkner is a 63-year-old right-handed patient with h istory of seizures, noninsulin-dependent diabetes mellitus, hypertension, dyslipidemia, pulmonary emb olus, who has had multiple falls over at least a month. He has fallen around 5 times. His falls hav e occurred in his kitchen and other parts of his house. He typically ends up on the ground without b eing aware of why he is falling. He denies loss of consciousness or any sensation of dizziness or li ghtheadedness, chest pounding, palpitations, shortness of breath prior to falling. At the [facility], his brain MRI actually identified cystic encephalomalacia in the right frontal lobe second alice to old infarcts. There were old thalamic and basal ganglia infarcts. He had moderate periventri cular and deep subcortical white matter ischemic changes secondary to small vessel ischemic disease. His diffusion weighted ADC mapping did not reveal acute infarction. He did have dehydration with el evated creatinine of 1.53, elevated glucose of 197. The patient was treated with aspirin and Brilint a along with folic acid and statin. His cardiac workup included an echocardiogram on April 04, showing ejection fraction of 57%. A normal study except for grade 1 diastolic dysfunction. His hall tid artery ultrasound showed no significant abnormalities in both internal carotid arteries along wit h the common carotid as well. The patient was evaluated by Physical and Occupational Therapy and fou nd to be ambulating with unsteady gait, requiring moderate assistance to be able to ambulate safely. He is at significant risk of falling and injury, and has fallen multiple times as noted. In additio n, there is potential for aspiration as there is also incoordination with oropharyngeal movements. A s a result of this and his multiple comorbid conditions, including the elevated creatinine and blood sugars along with his hypertension, the patient was determined to be an appropriate candidate for in [facility] and he was admitted to the unit for aggressive physical, occupational, and spee ch therapy. Past Medical History: As noted, multiple stroke, seizure, diabetes mellitus type 2, hypertension, co ronary artery disease, dyslipidemia, history of pulmonary embolus. Brain imaging: As noted, head CT scan showed foci of hypoattenuation in cerebral hemispheres bilater ally with subacute to actually chronic infarcts. Also stable right frontal and temporal areas of enc ephalomalacia consistent with remote infarcts. Has carotid artery ultrasound that is unremarkable. Echocardiogram: No significant abnormalities. Allergies: NO KNOWN DRUG ALLERGIES. Medications: Norvasc 10 mg daily, aspirin 160 mg daily, Tenormin 25 mg daily, Lipitor 40 mg at bedti me, Dulcolax 10 per rectum as needed for constipation, Lovenox 40 mg subcutaneously daily, NovoLog in sulin sliding scale, Lamictal 150 mg in the morning and 200 mg at bedtime, lidocaine patch apply topi hong daily as needed, Prinivil 40 mg daily, metformin 500 mg twice daily, Senokot-S 2 at bedtime, Zo loft 50 mg daily, Brilinta 90 mg twice daily, and Desyrel 50 mg at night as needed. Family History: Heart disease in Father and diabetes in Mother. Social History: No tobacco use. Admits to alcohol use. No IV drug use. Review of Systems: Unsteady gait, tendency to fall. Some mild low-grade fever. No chills. Mild disorientation. He al so reports some pain in the right chest area. There was evaluation by CT scan that showed no fractur es in the chest and no significant abnormalities in the abdominal region. Physical Examination: Vital Signs: Blood pressure 147/91, pulse 90, respiratory rate 18, temperature 97.8, oxygen saturati on 95%. General: Mr. Faulkner is standing in the room at the time of my evaluation. HEENT: He appears to be normocephalic, atraumatic. Sclerae anicteric. Oropharynx pink and moist. Neck: Supple. Chest: Clear. Heart: Regular. Extremities: No significant cyanosis, clubbing, or edema. Neurological: He is alert, oriented, follows commands appropriately. Cranial nerves show no focal o r obvious deficits. In terms of his neurological examination, mild dysmetria on siuswe-lw-eors and h eel-to-brady. Wide-based and slightly unsteady gait, but able to have good strength in upper and lowe r extremities. Laboratory Studies: White blood cell count 7.3, hemoglobin 13.1, platelets 184. INR 1.04. Sodium 1 40, potassium 3.8, chloride 109, carbon dioxide 25, BUN 17, creatinine 1.41, glucose 123 up to 209, c alcium 8.4. Urinalysis from the was normal. His valproic acid level was 12.3 on 04/02/2023. C OVID-19 test was negative on 04/05. Current Level Of Functioning: Set up supervision for eating, oral hygiene. Maximal assistance for t oilet hygiene. Moderate assistance for bathing. Moderate assistance for upper body dressing and max imal assist for lower body dressing. Donning and doffing shoes, maximal assistance. Moderate assist ance for rolling, right to left and left to right. Sitting to lying in bed, and lying to sitting and standing also moderate assistance. Transfers from bed to chair to toilet, moderate assistance. Amb ulation, moderate assistance with a rolling walker. He did walk up to 260 feet. Stairs not yet test ed. Rehab And Medical Assessment And Plan: Mr. Faulkner is a 63-year-old patient in the rehabilitation [facility] with impairment category 01 stroke and remote effects of stroke. His impairment group code is 01.4 . Stroke with incoordination without paresis. Etiologic diagnoses: Cerebellar ischemia and multipl e strokes. Comorbidities: Aphasia, coronary artery disease, constipation, diabetes mellitus type 2, dyslipidemia, right chest wall pain after falling, seizures, right-sided weakness that has improved. Plan: 1.He will have physical, occupational, and speech therapy for 3.5 hours, 5 to 7 days. 2.For his comorbid conditions, which include diabetes mellitus, dyslipidemia, hypertension, medicati ons that are indicated and outlined above will be continued. Lovenox for DVT prophylaxis. Continue Zoloft for depression. Continue trazodone for insomnia, Senokot-S for constipation, Prinivil along w [facility] Norvasc for hypertension. The Brilinta and aspirin, I will continue for stroke risk reduction. Impact Of His Comorbidities: The patient does have a tendency for some impulsivity, as he did ask [facility] nurse about going to the bathroom, but then urinated on the floor going the wrong way; however, he was able to be redirected. His blood sugars are moderately uncontrolled and will be more aggressivel y addressed. He has had multiple strokes as noted on MRI in multiple vascular territories and may perea ve to be evaluated for the possibility of atrial fibrillation. Rehab Specific Plan: Mr. Faulkner will have physical, occupational, speech therapy for 3.5 hours, 5 to 7 days to improve his ability to ambulate safely with a rolling walker 250 feet, to go up and down 1 0 to 15 steps with modified independence. Propel a wheelchair 250 feet with modified independence. Perform cognitive functioning with modified independence and make safe decisions with modified indepe ndence. Mr. Faulkner has a good understanding of the process of admission to the inpatient [facility]habil[facility] facility and that he will likely benefit very well from physical, occupational, and speech therap y. If need be, additional help from the cardiology service, hospitalist service will be consulted. Given his risk of further complications and the possibility of a complicated medical course, the cezar ent will be best suited by inpatient rehabilitation versus rehabilitation at a less capable unit, suc h as group home. Barriers To Discharge: His barriers to discharge do include some impulsivity and the patient has had again multiple falls without warning, and he will have to be fairly re-educated on safe ambulation u sing a walker at all times and planning where he is walking to make sure he has a walker available an d potentially may require some supervision when he leaves; this is for planning to go back home. Length Of Stay: Around 10 days. Disposition: Home with supervision as much as possible. Prognosis: Good. Rehab Specific Goals: 1.Become independent with upper and lower body dressing, toileting, showering, donning and doffing s hoes. 2.Independently ambulate 250 feet with a rolling walker. 3.Independently propel a wheelchair 250 feet. 4.Independently to go up and down 15 steps with bilateral handrails. 5.Independently perform cognitive functioning such as making safe decisions, taking medications appr opriately, and following up with all physicians' schedule appointment. 6.The above goals were reviewed with Mr. Faulkner and he is in agreement. By signing this document, I acknowledge I have performed a full physical examination on Mr. Faulkner no later than 24 hours after his admission to the inpatient rehabilitation facility and determined that he is able to tolerate the above course of treatment at an intensive level for a reasonable period o f time. An individualized plan of care for him will be completed by hospital day 4 based on the prea dmission screen, history and physical, and therapy evaluations. LB/MODL Voice ID: [id number]
[2023-04-06] MEDS: atenoloL 25 MG TAB PO SCH (04:33)
[2023-04-06 07:30] LABS: Albumin 3.4 g/dL (3.4-5.0); Magnesium 2.2 mg/dL (1.6-2.4); Potassium 3.8 mEq/L (3.5-5.1); Prealbumin 22.9 mg/dL (20-40)
[2023-04-06] MEDS: INSULIN REGULAR (HUMAN) 100 UNIT/ML SQ SCH ×4 (07:30→20:27)
[2023-04-06 07:33] LABS: Absolute Lymphocytes (CBC) 1.7 K/uL (0.7-4.9); Hematocrit 37.2 % (39.6-49.0); Lymphocytes % 19.7 % (15.3-44.8); MPV 9.2 fL (7.6-11.3); Platelets 227 thou/uL (152-406); RBC Red Blood Cell Count 4.18 M/uL (4.33-5.43)
[2023-04-06] MEDS: LIDOCAINE 4% PATCH TOP SCH (07:53)
[2023-04-06] MEDS: TICAGRELOR 90 MG TABLET PO SCH ×2 (07:54→20:25)
[2023-04-06] MEDS: ENOXAPARIN 40 MG/0.4 ML SQ SCH (07:54)
[2023-04-06] MEDS: ASPIRIN EC 81 MG TAB PO SCH (07:55)
[2023-04-06] MEDS: SERTRALINE HCL 50 MG TAB PO SCH (07:55)
[2023-04-06] MEDS: lisinopriL 20 MG TAB PO SCH (07:55)
[2023-04-06] MEDS: METFORMIN HCL 500 MG TAB PO SCH ×2 (07:55→17:08)
[2023-04-06] MEDS: lamoTRIgine 150 MG TAB PO SCH (07:56)
[2023-04-06] MEDS ORDERED: SILDENAFIL CITRATE 20 MG TABLET PO SCH (08:00)
[2023-04-06] MEDS: AMLODIPINE 10 MG TAB PO SCH (10:56)
--- NOTE | 2023-04-06 13:31 | P.RH.PN ---
Estimated Length of Stay: 9 Expected Discharge Date: 04/11/23 Discharge Disposition Plan: Home Family Support: Yes Teacher Advisor Goal: Mobility, Transfers, Self Care Vital Signs: Last Vital Signs Temp 97.6 F 04/06/23 07:37 Pulse 84 04/06/23 10:56 Resp 16 04/06/23 07:37 BP 139/78 04/06/23 10:56 Pulse Ox 96 04/06/23 07:37 Laboratory: Laboratory Last Values WBC 8.90 thou/uL (4.3-10.9) 04/06/23 07:01 RBC 4.18 M/uL (4.33-5.43) L 04/06/23 07:01 Hgb 12.8 g/dL (13.6-17.9) L 04/06/23 07:01 Hct 37.2 % (39.6-49.0) L 04/06/23 07:01 MCV 89.0 fL (80-100) 04/06/23 07:01 MCH 30.5 pg (27.0-35.0) 04/06/23 07:01 MCHC 34.3 g/dL (32.0-36.0) 04/06/23 07:01 RDW 13.6 % (12.1-15.2) 04/06/23 07:01 Plt Count 227 thou/uL (152-406) 04/06/23 07:01 MPV 9.2 fL (7.6-11.3) 04/06/23 07:01 Neutrophils % 67.1 % (41.7-73.7) 04/06/23 07:01 Lymphocytes % 19.7 % (15.3-44.8) 04/06/23 07:01 Monocytes % 10.3 % (3.3-12.3) 04/06/23 07:01 Eosinophils % 2.2 % (0-4.4) 04/06/23 07:01 Basophils % 0.7 % (0-1.3) 04/06/23 07:01 Absolute Neutrophils 6.0 K/uL (1.8-8.0) 04/06/23 07:01 Absolute Lymphocytes 1.7 K/uL (0.7-4.9) 04/06/23 07:01 Absolute Monocytes 0.9 K/uL (0.1-1.3) 04/06/23 07:01 Absolute Eosinophils 0.2 K/uL (0-0.5) 04/06/23 07:01 Absolute Basophils 0.1 K/uL (0-0.5) 04/06/23 07:01 Sodium 138 mEq/L (136-145) 04/06/23 07:01 Potassium 3.8 mEq/L (3.5-5.1) 04/06/23 07:01 Chloride 107 mEq/L (98-107) 04/06/23 07:01 Carbon Dioxide 24 mEq/L (21-32) 04/06/23 07:01 Anion Gap 10.8 mEq/L (5.0-15.0) 04/06/23 07:01 BUN 13 mg/dL (7-18) 04/06/23 07:01 Creatinine 1.40 mg/dL (0.70-1.30) H 04/06/23 07:01 Est GFR (CKD-EPI) 57 ml/min (=/>90) L 04/06/23 07:01 Glucose 163 mg/dL (74-106) H 04/06/23 07:01 POC Glucose 163 mg/dL (65-120) H 04/06/23 11:21 Calcium 8.9 mg/dL (8.5-10.1) 04/06/23 07:01 Magnesium 2.2 mg/dL (1.6-2.4) 04/06/23 07:01 Albumin 3.4 g/dL (3.4-5.0) 04/06/23 07:01 Prealbumin 22.9 mg/dL (20-40) 04/06/23 07:01 Urine Color Colorless (Yellow) 04/06/23 00:10 Urine Clarity Clear (Clear) 04/06/23 00:10 Urine pH 5.5 (5.0-7.0) 04/06/23 00:10 Ur Specific [place] 1.011 (1.005-1.030) 04/06/23 00:10 Glucose (UA)(Auto) Negative (Negative) 04/06/23 00:10 Urine Ketones Negative (Negative) 04/06/23 00:10 Urine Blood Negative (Negative) 04/06/23 00:10 Urine Nitrite Negative (Negative) 04/06/23 00:10 Urine Bilirubin Negative (Negative) 04/06/23 00:10 Urine Urobilinogen Normal (Normal) 04/06/23 00:10 Ur Leukocyte Esterase Negative Miladys/uL (Negative) 04/06/23 00:10 Urine RBC <5 /HPF (None Seen) 04/06/23 00:10 Urine WBC <5 /HPF (<5) 04/06/23 00:10 Ur Squamous Epith Cells None seen /HPF (None Seen) 04/06/23 00:10 Urine Bacteria <20 /HPF (<20) 04/06/23 00:10 Urine Culture Reflexed Not needed 04/06/23 00:10 Urine Total Protein Negative (Negative) 04/06/23 00:10 SARS-CoV-2 Rap RNA(RT-PCR) Negative (NEGATIVE) 04/05/23 16:00 Weight: 315 lb Physician Update: MMSE . Labs reviewed and are stable. He will be evaluated by PT and OT today. Summary: Patient's care plan and intermodal customer service goals have been reviewed and revised as necessary. Please see the Rehabilitation Signature page for all necessary signatures.
[2023-04-06] MEDS ORDERED: LIDOCAINE 4% PATCH TOP ONE (17:00)
[2023-04-06] MEDS: lamoTRIgine 100 MG TAB PO SCH (20:26)
[2023-04-06] MEDS: TRAZODONE 50 MG TABLET PO SCH (20:28)
[2023-04-06] MEDS: ATORVASTATIN 40 MG TAB PO SCH (20:28)
[2023-04-06] MEDS: DOCUSATE NA/SENNA CONC 1 TAB PO SCH (20:28)
[2023-04-07] MEDS: atenoloL 25 MG TAB PO SCH (05:11)
[2023-04-07] MEDS: ACETAMINOPHEN 500 MG TAB PO PRN ×2 (06:52→19:21)
[2023-04-07] MEDS: LIDOCAINE 4% PATCH TOP SCH (06:53)
[2023-04-07] MEDS: INSULIN REGULAR (HUMAN) 100 UNIT/ML SQ SCH ×4 (07:25→19:36)
[2023-04-07] MEDS: lisinopriL 20 MG TAB PO SCH (07:26)
[2023-04-07] MEDS: ENOXAPARIN 40 MG/0.4 ML SQ SCH (07:26)
[2023-04-07] MEDS: lamoTRIgine 150 MG TAB PO SCH (07:27)
[2023-04-07] MEDS: SERTRALINE HCL 50 MG TAB PO SCH (07:27)
[2023-04-07] MEDS: ASPIRIN EC 81 MG TAB PO SCH (07:27)
[2023-04-07] MEDS: TICAGRELOR 90 MG TABLET PO SCH ×2 (07:27→19:17)
[2023-04-07] MEDS: METFORMIN HCL 500 MG TAB PO SCH ×2 (07:27→16:52)
[2023-04-07] MEDS: AMLODIPINE 10 MG TAB PO SCH (10:29)
[2023-04-07] MEDS ORDERED: LIDOCAINE 4% PATCH TOP ONE (17:00)
[2023-04-07] MEDS: TRAZODONE 50 MG TABLET PO SCH (19:18)
[2023-04-07] MEDS: ATORVASTATIN 40 MG TAB PO SCH (19:18)
[2023-04-07] MEDS: lamoTRIgine 100 MG TAB PO SCH (19:18)
[2023-04-07] MEDS: DOCUSATE NA/SENNA CONC 1 TAB PO SCH (19:19)
[2023-04-08] MEDS: atenoloL 25 MG TAB PO SCH (05:33)
[2023-04-08] MEDS: ACETAMINOPHEN 500 MG TAB PO PRN (07:13)
[2023-04-08] MEDS: LIDOCAINE 4% PATCH TOP SCH (07:15)
[2023-04-08] MEDS: ENOXAPARIN 40 MG/0.4 ML SQ SCH (07:15)
[2023-04-08] MEDS: METFORMIN HCL 500 MG TAB PO SCH ×2 (07:16→16:50)
[2023-04-08] MEDS: SERTRALINE HCL 50 MG TAB PO SCH (07:17)
[2023-04-08] MEDS: ASPIRIN EC 81 MG TAB PO SCH (07:17)
[2023-04-08] MEDS: lisinopriL 20 MG TAB PO SCH (07:19)
[2023-04-08] MEDS: TICAGRELOR 90 MG TABLET PO SCH ×2 (07:19→20:10)
[2023-04-08] MEDS: INSULIN REGULAR (HUMAN) 100 UNIT/ML SQ SCH ×4 (07:30→20:10)
[2023-04-08] MEDS: lamoTRIgine 150 MG TAB PO SCH (07:45)
[2023-04-08] MEDS: AMLODIPINE 10 MG TAB PO SCH (09:59)
[2023-04-08] MEDS: ATORVASTATIN 40 MG TAB PO SCH (20:09)
[2023-04-08] MEDS: lamoTRIgine 100 MG TAB PO SCH (20:09)
[2023-04-08] MEDS: TRAZODONE 50 MG TABLET PO SCH (20:09)
[2023-04-08] MEDS: DOCUSATE NA/SENNA CONC 1 TAB PO SCH (20:10)
[2023-04-08] MEDS ORDERED: DOCUSATE NA/SENNA CONC 1 TAB PO PRN (22:06)
[2023-04-09] MEDS: atenoloL 25 MG TAB PO SCH (05:04)
[2023-04-09] MEDS: TICAGRELOR 90 MG TABLET PO SCH ×2 (07:21→19:34)
[2023-04-09] MEDS: ENOXAPARIN 40 MG/0.4 ML SQ SCH (07:21)
[2023-04-09] MEDS: LIDOCAINE 4% PATCH TOP SCH (07:21)
[2023-04-09] MEDS: CRANBERRY FRUIT EXTRACT 200 MG CAP PO SCH ×2 (07:22→19:34)
[2023-04-09] MEDS: METFORMIN HCL 500 MG TAB PO SCH ×2 (07:22→16:59)
[2023-04-09] MEDS: ASPIRIN EC 81 MG TAB PO SCH (07:22)
[2023-04-09] MEDS: lamoTRIgine 150 MG TAB PO SCH (07:22)
[2023-04-09] MEDS: SERTRALINE HCL 50 MG TAB PO SCH (07:23)
[2023-04-09] MEDS: ACETAMINOPHEN 500 MG TAB PO PRN (07:23)
[2023-04-09] MEDS: lisinopriL 20 MG TAB PO SCH (07:23)
[2023-04-09] MEDS: INSULIN REGULAR (HUMAN) 100 UNIT/ML SQ SCH ×4 (07:30→19:35)
[2023-04-09] MEDS: AMLODIPINE 10 MG TAB PO SCH (09:05)
[2023-04-09] MEDS: lamoTRIgine 100 MG TAB PO SCH (19:34)
[2023-04-09] MEDS: ATORVASTATIN 40 MG TAB PO SCH (19:35)
[2023-04-09] MEDS: TRAZODONE 50 MG TABLET PO SCH (19:35)
--- NOTE | 2023-04-09 22:04 | PN ---
Date of Progress Note: 04/09/2023 Time Of Service: 1:30 p.m. Subjective: Mr. Faulkner is resting comfortably in bed, in no significant distress, appears to be norm ocephalic. He has improvement in his ability to mobilize. He said the food is very good, bowel move ments are working, sleeping is well. Objective: No fevers, chills, nausea, vomiting, myalgias, arthralgias, rash, headache, weight change . No psychiatric issues. No gastrointestinal or genitourinary issues. Physical Examination: Vital Signs: Blood pressure 103/65, pulse 84, respiratory rate 16, temperature 97, oxygen saturation 97%. General: Mr. Faulkner is sitting in a chair, beside the bed. Finished lunch. HEENT: He is normocephalic, atraumatic. Sclerae are anicteric. Oropharynx pink and moist. Neck: Supple. Chest: Clear. Heart: Regular. Extremities: Show no significant edema, cyanosis, or clubbing. Neurological: Examination is still remarkable for some dysmetria, some difficulty with balance, coor dination, and gait, but he has full strength in the upper and lower extremities. Laboratory Studies: White blood cell count 8.9, hemoglobin 12.8, platelets 227. Blood sugars ranged from 122 to 148. Sodium 138, potassium 3.8, chloride 107, carbon dioxide 24, BUN 13, creatinine 1.4 , prealbumin 22.9, albumin 3.4, magnesium 2.2, calcium 8.9. Urinalysis is unremarkable and COVID-19 test on the 14th is normal. X-ray/imaging: No new x-rays or imaging. Medications: Tylenol 500 mg every 4 hours as needed, Norvasc 10 mg daily, aspirin 162 mg daily, Teno rmin 25 mg daily, Lipitor 40 mg at bedtime, Dulcolax suppository 10 mg as needed, Lovenox 40 mg subcu taneously daily, Lamictal 200 mg at bedtime and 150 mg daily, apply lidocaine patch 2 patches daily a s needed, Prinivil 40 mg daily, metformin 500 mg twice daily, Senokot-S 2 at bedtime, Zoloft 50 mg da mera, Brilinta 90 mg twice daily, Desyrel 50 mg at bedtime. Progress Made With Physical And Occupational Therapy: Today, he was able to be independent for mobil izing with various weights. He did that for 250 feet. He also descended 93 steps with standby marty swartz, ambulated on gravel and grass over 1000 feet with supervision. No episodes of loss of balance . Negotiated for 5 times with standby assistance. With occupational therapy, independent for sit-to -stand and step and pivot transfer using grab bars in the restroom. Bathing was supervision. Upper body dressing independent, lower body dressing at supervision level. He is doing well and will be re elda for discharge by the end of the week. In terms of speech, he had intelligible speech with 100% u se and use of compensatory strategies. Working memory, he had 80% accuracy and moderate assistance d uring the exercises. Mr. Faulkner is doing very-very well in terms of his recovery from stroke and will be ready for dischar ge soon. He has good balance and coordination and recovery as noted in terms of his ability to regai n the lost function with his stroke. Assessment: Mr. Faulkner is a 63-year-old patient admitted to the rehabilitation unit with the remote effects of stroke affecting his cerebellum and he is noted to have multiple strokes, but he is actual ly recovering very well. He has diabetes mellitus type 2, dyslipidemia, hypertension, coronary arter y disease and is recovering well. Plan: 1.Physical, occupational, and speech therapy for 3-1/2 hours, 5 to 7 days. 2.Continue to address his dyslipidemia, hypertension, and diabetes mellitus with medications. Insom layla with trazodone. Constipation with Senokot. Brilinta and aspirin for stroke risk reduction. Comorbid Conditions That Continue To Impact His Rehabilitation: Currently, he is doing very well. I nitially, he was worried about him being impulsive, but he is still doing very well regardless of the comorbidities. LB/MODL Voice ID: [id number] Report ID: [id number]
[2023-04-10] MEDS: atenoloL 25 MG TAB PO SCH (05:07)
[2023-04-10] MEDS: ENOXAPARIN 40 MG/0.4 ML SQ SCH (07:23)
[2023-04-10] MEDS: lamoTRIgine 150 MG TAB PO SCH (07:23)
[2023-04-10] MEDS: LIDOCAINE 4% PATCH TOP SCH (07:23)
[2023-04-10] MEDS: AMLODIPINE 10 MG TAB PO SCH (07:24)
[2023-04-10] MEDS: TICAGRELOR 90 MG TABLET PO SCH ×2 (07:24→19:54)
[2023-04-10] MEDS: SERTRALINE HCL 50 MG TAB PO SCH (07:25)
[2023-04-10] MEDS: METFORMIN HCL 500 MG TAB PO SCH ×2 (07:25→17:04)
[2023-04-10] MEDS: CRANBERRY FRUIT EXTRACT 200 MG CAP PO SCH ×2 (07:25→19:54)
[2023-04-10] MEDS: ASPIRIN EC 81 MG TAB PO SCH (07:25)
[2023-04-10] MEDS: INSULIN REGULAR (HUMAN) 100 UNIT/ML SQ SCH ×4 (07:30→19:55)
[2023-04-10] MEDS: lisinopriL 20 MG TAB PO SCH (09:16)
[2023-04-10] MEDS: ATORVASTATIN 40 MG TAB PO SCH (19:54)
[2023-04-10] MEDS: lamoTRIgine 100 MG TAB PO SCH (19:54)
[2023-04-10] MEDS: TRAZODONE 50 MG TABLET PO SCH (19:54)
--- NOTE | 2023-04-10 20:44 | PN ---
Date of Progress Note: 04/10/2023 Time Of Service: 12:50 p.m. Subjective: Mr. Faulkner is doing well, able to ambulate very well. Has no new complaints. Denies an y issues in terms of his therapy. Happy so far with his therapy and actually ready for early dischar ge to home. Review of Systems: No fevers, chills, nausea, vomiting. No myalgias, arthralgias, rash, headache, or weight change. Physical Examination: Vital Signs: Blood pressure 131/75, pulse 78, respiratory rate of 16, temperature 97.7, oxygen satur ation 97%. General: Mr. Faulkner is resting comfortably in bed between therapy sessions. HEENT: He is normocephalic, atraumatic. Sclerae are anicteric. Oropharynx pink and moist. Neck: Supple. Chest: Clear. Heart: Regular. Extremities: He does have some incoordination, but no focal weakness in upper or lower extremities. Laboratory Studies: Blood sugars ranged from 148 to 161. X-ray/imaging: No new x-rays or imaging. Medications: His medications have been reviewed and remained unchanged. Progress With Physical And Occupational Along With Speech Therapy: Today, with his physical therapy, bed mobilization including uyrtsj-[id number] transfers and scooting with independence. Simulated car tr ansfers are done with independence. He ambulated 250 feet 3 times with modified independence, was ab le to go up and down 20 steps independently. With occupational therapy, ambulating from room to bath room to gym independently, covered 250 feet with no assistive device independently. With speech, rec all 3 of 3 unrelated pictures after 5 minutes without cues, sentence level speech 100% intelligible. BIMS and SLUMS scores improved. The SLUMS score improved from 18 to 25 indicating just mild cogniti ve impairment. Overall, Mr. Faulkner is doing excellent with physical, occupational, and speech therapy and ready to b e discharged home and will be served best by continuing therapy on an outpatient basis if that is pos sible. Assessment: Mr. Faulkner is a 63-year-old patient in the rehabilitation unit for strokes affecting his cerebellum. He has multiple strokes. He is recovering well. He has diabetes mellitus type 2 dysli pidemia, hypertension, coronary artery disease. Plan: 1.Continue physical, occupational, and speech therapy for 3-1/2 hours, 5 out of 7 days. 2.Continue with comorbid condition medications for his diabetes, dyslipidemia, hypertension, constip ation, and to reduce his stroke risk. Comorbidities That Continue To Impact His Rehabilitation: His comorbid conditions are stably managed and do not negatively impact his rehabilitation, and he is ready for discharge in the morning. TESS/LISA Voice ID: [id number] Report ID: [id number]
[2023-04-11] MEDS: atenoloL 25 MG TAB PO SCH (04:36)
[2023-04-11] MEDS: INSULIN REGULAR (HUMAN) 100 UNIT/ML SQ SCH (06:57)
[2023-04-11 07:23] VITALS: TEMP 97.4
[2023-04-11] MEDS: LIDOCAINE 4% PATCH TOP SCH (07:32)
[2023-04-11] MEDS: AMLODIPINE 10 MG TAB PO SCH (07:34)
[2023-04-11] MEDS: ENOXAPARIN 40 MG/0.4 ML SQ SCH (08:00)
[2023-04-11] MEDS: SERTRALINE HCL 50 MG TAB PO SCH (08:17)
[2023-04-11] MEDS: CRANBERRY FRUIT EXTRACT 200 MG CAP PO SCH (08:17)
[2023-04-11] MEDS: METFORMIN HCL 500 MG TAB PO SCH (08:17)
[2023-04-11] MEDS: ASPIRIN EC 81 MG TAB PO SCH (08:17)
[2023-04-11] MEDS: TICAGRELOR 90 MG TABLET PO SCH (08:58)
[2023-04-11] MEDS: lisinopriL 20 MG TAB PO SCH (09:19)
[2023-04-11] MEDS: lamoTRIgine 150 MG TAB PO SCH (09:19)
[2023-04-11 09:22] VITALS: BP 121/71
== END 2023-04-11 10:30 | disposition home or self-care (01) | DRG 57 ==
LOC: 5TH 13:50
PROVIDERS: ADMIT Psychiatry & Neurology Neurology with Special Qualifications in Child Neurology; ATTEND Psychiatry & Neurology Neurology with Special Qualifications in Child Neurology
DX: I69.398 Other sequelae of cerebral infarction (principal); I69.320 Aphasia following cerebral infarction; R26.89 Other abnormalities of gait and mobility; I10 Essential (primary) hypertension; E11.9 Type 2 diabetes mellitus without complications; I25.10 Atherosclerotic heart disease of native coronary artery without angina pectoris; E78.5 Hyperlipidemia, unspecified; Z86.711 Personal history of pulmonary embolism; K59.00 Constipation, unspecified
CPT/HCPCS: 36415; 80048; 81001; 82040; 82947; 83735; 84134; 85025; 87086; 87088; 87635; 92507; 92523; 97110; 97112; 97116; 97163; 97165; 97530; 97542; J1650; J1815; J2001

== ENCOUNTER 2023-07-20 11:58 | Emergency (ER) | payer BC ==
[2023-07-20 12:37] LABS: Absolute Basophils 0.1 K/uL (0-0.5); Absolute Eosinophils 0.1 K/uL (0-0.5); Absolute Lymphocytes (CBC) 1.5 K/uL (0.7-4.9); Absolute Monocytes 0.6 K/uL (0.1-1.3); Absolute Neutrophil 3.3 K/uL (1.8-8.0); Basophils % 1.1 % (0-1.3); Hematocrit 35.2 % (39.6-49.0); Hemoglobin 11.6 g/dL (13.6-17.9); Lymphocytes % 27.3 % (15.3-44.8); MCH 29.7 pg (27.0-35.0); MCHC 32.9 g/dL (32.0-36.0); MCV 90.2 fL (80-100); Monocytes % 10.6 % (3.3-12.3); Platelets 180 thou/uL (152-406); RBC Red Blood Cell Count 3.91 M/uL (4.33-5.43); Red Cell Distribution Width 13.7 % (12.1-15.2)
[2023-07-20 12:43] LABS: PT Prothrombin Time 17.3 SECONDS (9.5-12.5); PTT, Activated Partial Thromb 34.5 SECONDS (24.3-36.9); Protime INR 1.59
[2023-07-20] MEDS ORDERED: ONDANSETRON 4 MG/2 ML VIAL ONE (12:44)
[2023-07-20] MEDS ORDERED: FAMOTIDINE 20 MG/2 ML VIAL IV ONE (12:44)
[2023-07-20] MEDS ORDERED: NA CHLORIDE 0.9% 1,000 ML ONE (12:45)
[2023-07-20 12:55] LABS: Albumin 3.6 g/dL (3.4-5.0); Albumin/Globulin Ratio 0.8 (1.1-1.8); Bilirubin Total 0.5 mg/dL (0.2-1.0); Globulin 4.5 g/dL (2.3-3.5); Protein, Total 8.1 g/dL (6.4-8.2); Troponin High Sensitivity 6.3 pg/mL (<58.9)
--- NOTE | 2023-07-20 12:59 | RAD REPORT ---
EXAM DESCRIPTION: US - Abdomen Exam Limited - 07/20/2023 12:46 pm CLINICAL HISTORY: NAUSEA / VOMITING COMPARISON: No comparisons FINDINGS: The gallbladder demonstrates multiple shadowing gallstones. No pericholecystic fluid or ga llbladder wall thickening. The common bile duct is normal measuring 4-5 mm.. The liver demonstrates no findings of intrahepatic biliary dilatation. IMPRESSION: Extensive cholelithiasis.
--- NOTE | 2023-07-20 13:35 | RAD REPORT ---
EXAM DESCRIPTION: CT - Abdomen Pelvis Wo Contrast - 07/20/2023 1:07 pm CLINICAL HISTORY: Abdominal pain. vomiting COMPARISON: [facility] Protocol dated 07/14/2020 TECHNIQUE: CT imaging of the abdomen and pelvis was performed without contrast. Solid organ, bowel a nd vascular assessment is limited due to lack of IV and oral contrast. All CT scans are performed using dose optimization technique as appropriate and may include automated exposure control or mA/KV adjustment according to patient size. FINDINGS: The lower lung moran are clear.Cholelithiasis. The liver, spleen, pancreas, adrenal glands and kidneys are within normal limits for a limited non-co ntrast examination.Small benign renal cysts. No bowel obstruction, free air, free fluid or abscess. The appendix is normal. The osseous structures are within normal limits. IMPRESSION: No acute intra-abdominal or pelvic findings. A limited non-contrast examination was performed as detailed.
--- NOTE | 2023-07-20 13:50 | ER ---
Nurse's Notes [facility] Name: Monty Faulkner Age: 63 yrs Sex: Male : 1960 Arrival Date: 07/20/2023 Time: 11:58 Bed 6 Private MD: Diagnosis: Vomiting, unspecified;Other cholelithiasis without obstruction Presentation: 07/19 12:11 Chief complaint: Spouse and/or significant other states: the patient has been vomiting ap3 for approx 4 days. patient denies any abdominal pain at this time. patient reports a recent hospital stay at another facility. Coronavirus screen: At this time, the client does not indicate any symptoms associated with coronavirus-19. Ebola Screen: No symptoms or risks identified at this time. Initial Sepsis Screen: Does the patient meet any 2 criteria? No. Patient's initial sepsis screen is negative. Does the patient have a suspected source of infection? No. Patient's initial sepsis screen is negative. Risk Assessment: Do you want to hurt yourself or someone else? Patient reports no desire to harm self or others. Onset of symptoms was July 16, 2023. 12:11 Method Of Arrival: Wheelchair ap3 12:11 Acuity: YAYA 3 ap3 Triage Assessment: 12:13 General: Appears in no apparent distress. Behavior is calm, cooperative. Pain: Denies ap3 pain. Neuro: Level of Consciousness is awake, alert, obeys commands, Oriented to person, place, time, situation. Cardiovascular: Patient's skin is warm and dry. Respiratory: Airway is patent Respiratory effort is even, unlabored, Respiratory pattern is regular, symmetrical. GI: Reports indigestion, nausea, vomiting. Historical: - Allergies: 12:13 No Known Allergies; ap3 - PMHx: 12:13 CVA; Diabetes - NIDDM; Hypertension; Pulmonary Embolism; Seizures; TIA; ap3 - Immunization history:: Client reports receiving the 2nd dose of the Covid vaccine. - Social history:: Smoking status: Patient denies any tobacco usage or history of. - Family history:: not pertinent. - Hospitalizations: : Patient was recently seen at. Screenin:37 [facility] ED Fall Risk Assessment (Adult) History of falling in the last 3 months, cp4 including since admission No falls in past 3 months (0 pts) Confusion or Disorientation No (0 pts) Intoxicated or Sedated No (0 pts) Impaired Gait No (0 pts) Mobility Assist Device Used No (0 pt) Altered Elimination No (0 pt) Score/Fall Risk Level 0 - 2 = Low Risk Oriented to surroundings, Maintained a safe environment, Assessed \T\ reinforced patient's understanding of fall precautions, Hourly rounding (assess needs \T\ fall precautionary measures) done. Abuse screen: Denies threats or abuse. Nutritional screening: No deficits noted. Tuberculosis screening: No symptoms or risk factors identified. Assessment: 12:37 General: Appears in no apparent distress. Behavior is calm, cooperative, appropriate cp4 for age. Pain: Denies pain. GI: Abdomen is round non-distended, Bowel sounds present X 4 quads. Reports diarrhea, nausea, vomiting. Vital Signs: 12:11 BP 122 / 75; Pulse 87; Resp 17; Temp 98; Pulse Ox 97% on R/A; Weight 131.09 kg; ap3 13:57 BP 136 / 91; Pulse 85; Resp 18; Pulse Ox 100% ; cp4 ED Course: 12:01 Patient arrived in ED. ra3 12:02 Kelechi Campbell MD is Attending Physician. rn 12:02 Angela Avila is Primary Nurse. cp4 12:13 Triage completed. ap3 12:14 Arm band placed on right wrist. ap3 12:14 Patient has correct armband on for positive identification. Placed in gown. Bed in low ap3 position. Call light in reach. Side rails up X 1. Adult w/ patient. Pulse ox on. NIBP on. 12:25 Initial lab(s) drawn, by ak, sent to lab. First set of blood cultures drawn by ak. bc6 12:29 Troponin High Sensitivity Sent. bc6 12:29 Blood Culture Adult (2) Sent. bc6 12:29 Lactate w/ 2H reflex if indic. Sent. bc6 12:29 Protime (+inr) Sent. bc6 12:29 Ptt, Activated Sent. bc6 12:29 CBC with Diff Sent. bc6 12:29 CMP Sent. bc6 12:29 Lipase Sent. bc6 12:29 Inserted saline lock: 20 gauge in right forearm, using aseptic technique. Blood bc6 collected. 12:36 Blood Culture Adult (2) Sent. cp4 12:36 Lactate w/ 2H reflex if indic. Sent. cp4 12:37 Ptt, Activated Sent. cp4 12:37 Troponin High Sensitivity Sent. cp4 12:37 Lipase Sent. cp4 12:37 CMP Sent. cp4 12:37 CBC with Diff Sent. cp4 12:37 No provider procedures requiring assistance completed. cp4 12:48 US Abdomen Limited In Process Unspecified. EDMS 13:07 Abdomen In Process Unspecified. EDMS 13:48 Sulaiman Garcia MD is Referral Physician. rn 13:58 Provided Education on: cholelithiasis. cp4 13:58 intact, bleeding controlled, No redness/swelling at site. Pressure dressing applied. cp4 Administered Medications: 12:50 Drug: NS 0.9% IV 1000 ml IV at 1 bolus Per protocol; 1000 mL bolus Route: IV; Rate: 1 cp4 bolus; Site: right forearm; 14:00 Follow up: Response: No adverse reaction; IV Status: Completed infusion cp4 12:50 Drug: Famotidine IVP 20 mg IVP once; dilute with 10 mL 0.9% NaCl; give over 2 minutes cp4 Route: IVP; Site: right forearm; 14:00 Follow up: Response: No adverse reaction cp4 12:50 Drug: Ondansetron IVP 4 mg IVP once; over 2 minutes Route: IVP; Site: right forearm; cp4 14:01 Follow up: Response: No adverse reaction cp4 Medication: 12:37 VIS not applicable for this client. cp4 Outcome: 13:49 Discharge ordered by MD. rn 13:58 Discharged to home ambulatory, cp4 13:58 Condition: stable 13:58 Discharge instructions given to patient, Instructed on discharge instructions, follow up and referral plans. medication usage, Demonstrated understanding of instructions, follow-up care, medications, Prescriptions given X 1, 14:03 Patient left the ED. cp4 Signatures: Dispatcher [employer] EDMS eKlechi Campbell MD MD rn Prokisch, Amanda, RN RN Radha Harris6 Angela Avila cp4 Aziza Barger ra3
--- NOTE | 2023-07-20 13:50 | EDPHYS ---
Physician Documentation [facility] Name: Monty Faulkner Age: 63 yrs Sex: Male : 1960 Arrival Date: 07/20/2023 Time: 11:58 Bed 6 Private MD: ED Physician Kelechi Campbell HPI: 07/19 12:11 This 63 yrs old Black Male presents to ER via Unassigned with complaints of Vomiting. rn 12:11 The patient presents to the emergency department with nausea, vomiting. Onset: The rn symptoms/episode began/occurred 5 day(s) ago. 12:12 Possible causes: unknown. The symptoms are aggravated by nothing. The symptoms are rn alleviated by nothing. Severity of symptoms: At their worst the symptoms were moderate in the emergency department the symptoms are unchanged. The patient has experienced a previous episode. states admitted to hospital in [place] 2 weeks ago, told had stomach bug and sent home with multiple medications and possibly antibiotics. There were a few days that he was doing well but now vomiting has returned. Denies focal abdominal pain. No headache or focal neurological deficit. Patient does have history of stroke. Denies chest pain. Denies shortness of breath. No blood in emesis. No blood in stool or dark black stool.. Historical: - Allergies: 12:13 No Known Allergies; ap3 - PMHx: 12:13 CVA; Diabetes - NIDDM; Hypertension; Pulmonary Embolism; Seizures; TIA; ap3 - Immunization history:: Client reports receiving the 2nd dose of the Covid vaccine. - Social history:: Smoking status: Patient denies any tobacco usage or history of. - Family history:: not pertinent. - Hospitalizations: : Patient was recently seen at. ROS: 12:12 Constitutional: Negative for fever, chills, and weight loss, Cardiovascular: Negative rn for chest pain, palpitations, and edema, Respiratory: Negative for shortness of breath, cough, wheezing, and pleuritic chest pain, Abdomen/GI: Positive for nausea and vomiting Back: Negative for injury and pain, MS/Extremity: Negative for injury and deformity, Skin: Negative for injury, rash, and discoloration, Neuro: Positive for generalized weakness Exam: 12:12 Constitutional: This is a well developed, well nourished patient who is awake, alert, rn and in no acute distress. ENT: Dry mucous membranes Cardiovascular: Regular rate and rhythm. No pulse deficits. Respiratory: No increased work of breathing, no retractions or nasal flaring. Abdomen/GI: Soft, no focal tenderness. No rebound or guarding. MS/ Extremity: Pulses equal, no cyanosis. Neuro: Awake and alert, GCS 15 12:42 ECG was reviewed by the Attending Physician. rn Vital Signs: 12:11 BP 122 / 75; Pulse 87; Resp 17; Temp 98; Pulse Ox 97% on R/A; Weight 131.09 kg; ap3 13:57 BP 136 / 91; Pulse 85; Resp 18; Pulse Ox 100% ; cp4 MDM: 12:02 Patient medically screened. rn 13:46 Differential diagnosis: Nonspecific abd pain, gastritis, cholecystitis, pancreatitis, rn diverticulitis, viral gastroenteritis, gastroenteritis. Data reviewed: vital signs, nurses notes, lab test result(s), radiologic studies, CT scan, and as a result, I will discharge patient. 13:47 Counseling: I had a detailed discussion with the patient and/or guardian regarding the rn historical points, exam findings, and any diagnostic results supporting the discharge/admit diagnosis, lab results, radiology results, the need for outpatient follow up, to return to the emergency department if symptoms worsen or persist or if there are any questions or concerns that arise at home. Response to treatment: the patient's symptoms have markedly improved after treatment, the patient's condition has returned to base line, the patient is now symptom free, patient is well hydrated. and as a result, I will discharge patient. Special discussion: I discussed with the patient/guardian in detail that at this point there is no indication for admission to the hospital. It is understood, however, that if the symptoms persist or worsen the patient needs to return immediately for re-evaluation. ED course: No acute findings and CT abdomen pelvis or blood work. Ultrasound shows extensive cholelithiasis but patient without focal abdominal pain, especially right upper quadrant pain. Reexamined and has absolutely no abdominal tenderness. Negative Cordero sign. Not sure that the cholelithiasis is the culprit at this time. Patient states that has burps and gas and then throws up, will try with antacid medication. After heart cath coming up patient can make appointment with GI doctor for EGD as well as general surgery for cholelithiasis. Return precautions given and understood.. 07/19 12:10 Order name: CBC with Diff; Complete Time: 13:37 rn 07/19 12:10 Order name: CMP; Complete Time: 13:37 rn 07/19 12:10 Order name: Lipase; Complete Time: 13:37 rn 07/19 12:10 Order name: Blood Culture Adult (2) rn 07/19 12:10 Order name: Lactate w/ 2H reflex if indic.; Complete Time: 13:37 rn 07/19 12:10 Order name: Protime (+inr); Complete Time: 13:37 rn 07/19 12:10 Order name: Ptt, Activated; Complete Time: 13:37 rn 07/19 12:10 Order name: Troponin High Sensitivity; Complete Time: 13:37 rn 07/19 12:10 Order name: US Abdomen Limited; Complete Time: 13:37 rn 07/19 13:07 Order name: Abdomen ; Complete Time: 13:37 EDMS 07/19 12:10 Order name: EKG; Complete Time: 12:10 rn 07/19 12:10 Order name: IV Saline Lock; Complete Time: 12:29 rn 07/19 12:10 Order name: Labs collected and sent; Complete Time: 12:29 rn 07/19 12:10 Order name: Accucheck; Complete Time: 12:36 rn 07/19 12:10 Order name: Cardiac monitoring; Complete Time: 12:36 rn 07/19 12:10 Order name: EKG - Nurse/Tech; Complete Time: 12:36 rn 07/19 12:10 Order name: IV Saline Lock - Large Bore; Complete Time: 12:36 rn 07/19 12:10 Order name: O2 Per Protocol; Complete Time: 12:36 rn 07/19 12:10 Order name: O2 Sat Monitoring; Complete Time: 12:36 rn 07/19 12:10 Order name: Vital Signs; Complete Time: 12:36 rn EC:42 Rate is 84 beats/min. Rhythm is regular. Left axis deviation noted. QRS is positive in rn lead I and negative in lead aVF. ND interval is normal. QRS interval is prolonged at 164 msec. No Q waves. T waves are Normal. No ST changes noted. Clinical impression: NSR w/ Non-specific ST/T Changes and LBBB. Reviewed by me. Administered Medications: 12:50 Drug: NS 0.9% IV 1000 ml IV at 1 bolus Per protocol; 1000 mL bolus Route: IV; Rate: 1 cp4 bolus; Site: right forearm; 14:00 Follow up: Response: No adverse reaction; IV Status: Completed infusion cp4 12:50 Drug: Famotidine IVP 20 mg IVP once; dilute with 10 mL 0.9% NaCl; give over 2 minutes cp4 Route: IVP; Site: right forearm; 14:00 Follow up: Response: No adverse reaction cp4 12:50 Drug: Ondansetron IVP 4 mg IVP once; over 2 minutes Route: IVP; Site: right forearm; cp4 14:01 Follow up: Response: No adverse reaction cp4 Disposition Summary: 07/20/23 13:49 Discharge Ordered Notes: Location: Home rn Problem: new rn Symptoms: have improved rn Condition: Stable rn Diagnosis - Vomiting, unspecified rn - Other cholelithiasis without obstruction rn Followup: rn - With: Sulaiman Garcia MD - When: As needed - Reason: Recheck today's complaints, Re-evaluation by your physician Discharge Instructions: - Discharge Summary Sheet rn - Nausea and Vomiting, Adult rn - Cholelithiasis rn Forms: - Medication Reconciliation Form rn - Thank You Letter rn - Antibiotic business development intern - Prescription Opioid Use rn - Patient Portal Instructions rn - Leadership Thank You Letter rn Prescriptions: - Protonix 40 mg Oral tablet, delayed release (enteric coated) - take 1 tablet ORAL route once daily for 2 weeks; 14 tablet; Refills: 0, Product rn Selection Permitted Signatures: Dispatcher [employer] EDMS Kelechi Campbell MD MD rn Maicol Tsai, EMT B-C EMT B-Cla1 Dyana Ruth RN RN ap3 Angela Avila cp4 Corrections: (The following items were deleted from the chart) 13:07 12:10 Abdomen Pelvis W Con+CT.RAD.BRZ ordered. EDMS EDMS
[2023-07-20 14:26] VITALS: BP 136/91; TEMP 98; O2SAT 100
--- NOTE | 2023-07-21 09:39 | EKG ---
Test Date: 2023-07-20 Test Time: 12:21:29 Aircraft Structural Repairer: JENNIFER MEASUREMENT RESULTS: Intervals: Rate: 84 DE: 208 QRSD: 164 QT: 464 QTc: 548 [place]: P: 80 DE: 208 QRS: -42 T: 104 INTERPRETIVE STATEMENTS: Normal sinus rhythm Left axis deviation Left bundle branch block Abnormal ECG Compared to ECG 04/02/2023 10:08:43 Left-axis deviation now present Sinus tachycardia no longer present Electronically Signed On 07-21-23 09:38:18 CDT by Amos Rob
== END 2023-07-20 14:03 | disposition home or self-care (01) ==
LOC: ER 11:58
DX: K80.80 Other cholelithiasis without obstruction (principal)
CPT/HCPCS: 96361; 93005; 87040 ×2; 85025; 36415; 85610; 83605; 85730; 84484; 83690; 80053; 74176; 76705; 96375; 96374; 99284; J2405; J7030

== ENCOUNTER 2023-10-07 15:51 | Emergency (ER) | payer BC ==
[2023-10-07] MEDS ORDERED: ONDANSETRON 4 MG (ODT) TAB ONE (16:12)
[2023-10-07] MEDS ORDERED: NA CHLORIDE 0.9% 500 ML ONE (16:50)
[2023-10-07 16:54] LABS: Absolute Eosinophils 0.1 K/uL (0-0.5); Absolute Lymphocytes (CBC) 0.8 K/uL (0.7-4.9); Absolute Monocytes 0.5 K/uL (0.1-1.3); Absolute Neutrophil 3.5 K/uL (1.8-8.0); Basophils % 0.8 % (0-1.3); Eosinophils % 1.1 % (0-4.4); Hematocrit 29.1 % (39.6-49.0); Hemoglobin 9.8 g/dL (13.6-17.9); Lymphocytes % 16.6 % (15.3-44.8); MCH 30.7 pg (27.0-35.0); MCHC 33.5 g/dL (32.0-36.0); MCV 91.7 fL (80-100); MPV 8.8 fL (7.6-11.3); Monocytes % 10.6 % (3.3-12.3); Neutrophils % 70.9 % (41.7-73.7); Nucleated Red Blood Cells % 0.1 % (0-0); Platelets 215 thou/uL (152-406); RBC Red Blood Cell Count 3.18 M/uL (4.33-5.43); Red Cell Distribution Width 15.3 % (12.1-15.2)
[2023-10-07 17:03] LABS: PT Prothrombin Time 16.7 SECONDS (9.5-12.5); Protime INR 1.54
[2023-10-07 17:17] LABS: Albumin 3.2 g/dL (3.4-5.0); Albumin/Globulin Ratio 0.8 (1.1-1.8); Bilirubin Direct 0.2 mg/dL (0-0.2); Bilirubin Indirect, Calculated 0.3 mg/dL (0.2-0.8); Bilirubin Total 0.5 mg/dL (0.2-1.0); Globulin 3.9 g/dL (2.3-3.5); Magnesium 1.9 mg/dL (1.6-2.4); Protein, Total 7.1 g/dL (6.4-8.2); Troponin High Sensitivity 6.5 pg/mL (<58.9)
--- NOTE | 2023-10-07 17:18 | RAD REPORT ---
EXAM DESCRIPTION: CT - CTHCSPWOC - 10/07/2023 5:02 pm CLINICAL HISTORY: Trauma, head and neck injury. fall COMPARISON: No comparisons TECHNIQUE: Axial 5 mm thick images of the head were obtained. Axial 2 mm thick images of the cervical spine were obtained with sagittal and coronal reconstruction images generated and reviewed. All CT scans are performed using dose optimization technique as appropriate and may include automated exposure control or mA/KV adjustment according to patient size. FINDINGS: CT HEAD WITHOUT CONTRAST: No acute hemorrhage, hydrocephalus or extra-axial collection is identified.Mild generalized brain atr ophy is present with mild periventricular and deep white matter chronic microvascular ischemic change s.Moderate area of gliosis right frontal region likely attributable to remote infarct. The paranasal sinuses and mastoids are clear.The calvarium is intact. Mild vertebral atherosclerosis. CT CERVICAL SPINE WITHOUT CONTRAST: No fracture or subluxation.Mild midcervical degenerative changes.No prevertebral soft tissues swellin g is identified. IMPRESSION: No acute intracranial or cervical spine findings.
--- NOTE | 2023-10-07 17:45 | RAD REPORT ---
EXAM DESCRIPTION: RAD - Chest Single View - 10/07/2023 5:39 pm CLINICAL HISTORY: fall Chest pain. COMPARISON: Chest Single View dated 07/13/2022; Chest Single View dated 09/10/2020; Chest Single View dated 06/16/2017; Chest Single View dated 05/11/2017 FINDINGS: Portable technique limits examination quality. The lungs are mildly emphysematous but grossly clear. The heart is normal in size. No displaced fract ures. IMPRESSION: No acute intrathoracic process suspected.
--- NOTE | 2023-10-07 18:38 | EDPHYS ---
Physician Documentation [facility] Name: Monty Faulkner Age: 63 yrs Sex: Male : 1960 Arrival Date: 10/07/2023 Time: 15:51 Bed 5 Private MD: ED Physician Cory Coffman HPI: 10/06 16:15 This 63 yrs old Black Male presents to ER via Wheelchair with complaints of Vomiting. cp 16:15 The patient presents to the emergency department with vomiting, 1 times today. cp 16:15 Possible causes: head injury after fall this morning. cp 16:15 Associated signs and symptoms: Pertinent negatives: diarrhea, fever, active vomiting, cp altered mental status. Historical: - Allergies: 16:16 No Known Allergies; as6 - PMHx: 16:16 CVA; Diabetes - NIDDM; Hypertension; Pulmonary Embolism; Seizures; TIA; as6 - PSHx: 16:16 cardiac stent; as6 - Immunization history:: Adult Immunizations up to date. - Infectious Disease History:: Denies. - Social history:: Smoking status: Patient denies any tobacco usage or history of. ROS: 16:19 Respiratory: Negative for cough, shortness of breath, wheezing, cp 16:19 Eyes: Negative for injury, pain, redness, and discharge, cp 16:19 Constitutional: Negative for body aches, chills, fever, poor PO intake, 16:19 ENT: Negative for drainage from ear(s), ear pain, sore throat, difficulty swallowing, difficulty handling secretions, 16:19 Cardiovascular: Negative for chest pain, palpitations, 16:19 Abdomen/GI: Positive for 1 episode of vomiting, Negative for abdominal pain, diarrhea, constipation, 16:19 Neuro: Negative for altered mental status, loss of consciousness, syncope, cp 16:19 All other systems are negative, Exam: 16:25 Constitutional: The patient appears in no acute distress, alert, awake, cp non-diaphoretic, non-toxic, well developed, well nourished, obese, 16:25 Head/Face: Normocephalic, atraumatic. cp 16:25 Eyes: Periorbital structures: appear normal, Pupils: equal, round, and reactive to light and accomodation, Extraocular movements: intact throughout, Conjunctiva: normal, no exudate, no injection, Sclera: no appreciated abnormality, Lids and lashes: appear normal, bilaterally, 16:25 ENT: External ear(s): are unremarkable, Nose: is normal, Mouth: Lips: moist, Oral mucosa: moist, Posterior pharynx: Airway: no evidence of obstruction, patent, 16:25 Neck: C-spine: vertebral tenderness, is not appreciated, crepitus, is not appreciated, ROM/movement: pain, is not appreciated, limited range of motion, is not appreciated, 16:25 Chest/axilla: Inspection: normal, Palpation: is normal, no crepitus, no tenderness, 16:25 Cardiovascular: Rate: normal, Rhythm: regular, JVD: is not appreciated, 16:25 Respiratory: the patient does not display signs of respiratory distress, Respirations: normal, no use of accessory muscles, no retractions, labored breathing, is not present, Breath sounds: are clear throughout, no decreased breath sounds, 16:25 Abdomen/GI: Inspection: abdomen appears normal, Palpation: abdomen is soft and non-tender, in all quadrants, 16:25 Back: pain, is absent, ROM is normal, 16:25 Musculoskeletal/extremity: Exam is negative for deformity, injury, 16:25 Neuro: Orientation: to person, place \T\ time. Mentation: able to follow commands, Motor: no acute changes, Sensation: no acute changes, 16:40 ECG was reviewed by the Attending Physician. cp Vital Signs: 16:15 BP 77 / 48; Pulse 64; Resp 19 S; Temp 97.8(O); Pulse Ox 96% on 2 lpm NC; Weight 113.4 as6 kg (R); Height 6 ft. 1 in. (R); Pain 0/10; 16:45 BP 87 / 50; Pulse 68; Resp 16; Pulse Ox 98% on 2 lpm NC; ko1 16:45 BP 93 / 57; Pulse 62; Resp 16; Pulse Ox 97% on 2 lpm NC; ko1 16:45 BP 104 / 60; Pulse 59; Resp 15; Pulse Ox 98% ; ko1 17:57 BP 108 / 62; Pulse 60; Resp 16; Pulse Ox 98% on 2 lpm NC; ko1 18:23 BP 114 / 65; Pulse 62; Resp 16; Pulse Ox 98% on 2 lpm NC; ko1 19:28 BP 132 / 64; Pulse 64; Resp 19; Temp 97.8(TE); Pulse Ox 100% on R/A; Pain 0/10; tm6 16:15 Body Mass Index 32.98 (113.40 kg, 185.42 cm) as6 16:15 Pain Scale: Adult as6 19:28 Pain Scale: Adult tm6 MDM: 15:57 Patient medically screened. cp 18:37 Data reviewed: vital signs, nurses notes, lab test result(s), EKG, radiologic studies, cp CT scan, plain films. 18:37 Differential diagnosis: gastritis, viral gastroenteritis, gastroenteritis, dehydration, cp electrolyte abnormality, TN, CVA. I considered the following discharge prescriptions or medication management in the emergency department Medications were administered in the Emergency Department. See MAR. Independent interpretation of the following test(s) in the Emergency Department EKG: See my EKG interpretation above. Care significantly affected by the following chronic conditions: Diabetes, Hypertension. Counseling: I had a detailed discussion with the patient and/or guardian regarding the historical points, exam findings, and any diagnostic results supporting the discharge/admit diagnosis, lab results, radiology results, to return to the emergency department if symptoms worsen or persist or if there are any questions or concerns that arise at home. Response to treatment: the patient's symptoms have markedly improved after treatment, and as a result, I will discharge patient. 10/06 16:23 Order name: Basic Metabolic Panel; Complete Time: 17:20 10/06 17:20 Interpretation: Normal except: CL 108; GLUC 132; CRE 1.91; GFR 39. 10/06 16:23 Order name: CBC with Diff; Complete Time: 17:20 10/06 17:20 Interpretation: Normal except: RBC 3.18; HGB 9.8; HCT 29.1; RDW 15.3. 10/06 16:23 Order name: LFT's; Complete Time: 17:20 10/06 17:21 Interpretation: Normal except: AST 44; ALT 73; ALB 3.2; GLOB 3.9; A/G 0.8. 10/06 16:23 Order name: Magnesium; Complete Time: 17:20 10/06 17:22 Interpretation: Reviewed. 10/06 16:23 Order name: NT PRO-BNP; Complete Time: 17:20 10/06 16:23 Order name: PT-INR; Complete Time: 17:20 10/06 16:23 Order name: Troponin HS; Complete Time: 17:20 10/06 17:22 Interpretation: Reviewed. 10/06 16:23 Order name: Lactate w/ 2H reflex if indic.; Complete Time: 17:20 10/06 16:10 Order name: CT Head C Spine; Complete Time: 17:20 10/06 17:21 Interpretation: Reviewed report. 10/06 16:23 Order name: XRAY Chest (1 view); Complete Time: 18:06 10/06 18:06 Interpretation: Report reviewed. 10/06 16:23 Order name: Cardiac monitoring; Complete Time: 16:34 10/06 16:23 Order name: EKG - Nurse/Tech; Complete Time: 16:37 10/06 16:23 Order name: IV Saline Lock; Complete Time: 16:49 10/06 16:23 Order name: Labs collected and sent; Complete Time: 16:49 10/06 16:23 Order name: O2 Per Protocol; Complete Time: 16:34 10/06 16:23 Order name: O2 Sat Monitoring; Complete Time: 16:34 cp EC:40 Rate is 63 beats/min. Rhythm is regular. GA interval is prolonged at 208 msec. QRS cp interval is prolonged at 166 msec. QT interval is prolonged. Interpreted by me. Reviewed by me. Administered Medications: 16:18 Drug: Ondansetron PO 4 mg PO once Route: PO; as6 17:11 Drug: NS 0.9% IV 500 ml IV at bolus once Route: IV; Rate: bolus; Site: right forearm; ko1 18:06 Follow up: Response: No adverse reaction; IV Status: Completed infusion; IV Intake: ko1 500ml Disposition Summary: 10/07/23 18:38 Discharge Ordered Notes: Location: Home cp Problem: new cp Symptoms: have improved cp Condition: Stable cp Diagnosis - Vomiting cp - Volume depletion, unspecified cp Followup: cp - With: Private Physician - When: 1 - 2 days - Reason: Recheck today's complaints Discharge Instructions: - Discharge Summary Sheet cp - Dehydration, Adult cp - Vomiting, Adult cp Forms: - Medication Reconciliation Form cp - Antibiotic Education cp - Prescription Opioid Use cp - Patient Portal Instructions cp - Leadership Thank You Letter cp Prescriptions: - ondansetron 8 mg Oral Tablet,disintegrating - take 1 tablet ORAL route every 12 hours; 20 tablet; Refills: 0, Product cp Selection Permitted Addendum: 10/09/2023 14:19 I was immediately available for consultation during this patient's visit. I did not e c2 personally see the patient or discuss the patient with the DICK. . Signatures: Dispatcher [employer] EDMS Zaid Lemus PA PA cp Slawson, Ashby, RN RN as6 Stormy Wolff RN RN ko1 Cory Coffman MD MD ec2 Corrections: (The following items were deleted from the chart) 10/06 16:23 16:23 BASIC METABOLIC PANEL+C.LAB.BRZ ordered. EDMS EDMS 16:23 16:23 CBC+H.LAB.BRZ ordered. EDMS EDMS 16:23 16:23 HEPATIC FUNCTION+C.LAB.BRZ ordered. EDMS EDMS 16:23 16:23 MAGNESIUM+C.LAB.BRZ ordered. EDMS EDMS 16:23 16:23 PROBNP+C.LAB.BRZ ordered. EDMS EDMS 16:23 16:23 PROTIME (+INR)+COAG.LAB.BRZ ordered. EDMS EDMS 16:23 16:23 Troponin High Sensitivity+C.LAB.BRZ ordered. EDMS EDMS 16:23 16:23 Urinalysis W/Microscopic+U.LAB.BRZ ordered. EDMS EDMS 16:23 16:23 LACTATE+C.LAB.BRZ ordered. EDMS EDMS 10/07 10:36 10/06 18:19 Respiratory: Positive for cp cp 10/07 10:36 10/06 18:19 Abdomen/GI: Negative for vomiting, cp cp
--- NOTE | 2023-10-07 18:38 | ER ---
Nurse's Notes [facility] Name: Monty Faulkner Age: 63 yrs Sex: Male : 1960 Arrival Date: 10/07/2023 Time: 15:51 Bed 5 Private MD: Diagnosis: Vomiting;Volume depletion, unspecified Presentation: 10/06 16:16 Chief complaint: Patient states: pt had a fall this morning and hit his head. pt was as6 evaluated by EMS and refused transport. pt then has an episode of vomiting and family brought pt to ER. Coronavirus screen: At this time, the client does not indicate any symptoms associated with coronavirus-19. Ebola Screen: No symptoms or risks identified at this time. Initial Sepsis Screen: Does the patient meet any 2 criteria? No. Patient's initial sepsis screen is negative. Does the patient have a suspected source of infection? No. Patient's initial sepsis screen is negative. Risk Assessment: Do you want to hurt yourself or someone else? Patient reports no desire to harm self or others. Onset of symptoms was October 07, 2023. 16:16 Acuity: YAYA 2 as6 16:16 Method Of Arrival: Wheelchair as6 Historical: - Allergies: 16:16 No Known Allergies; as6 - PMHx: 16:16 CVA; Diabetes - NIDDM; Hypertension; Pulmonary Embolism; Seizures; TIA; as6 - PSHx: 16:16 cardiac stent; as6 - Immunization history:: Adult Immunizations up to date. - Infectious Disease History:: Denies. - Social history:: Smoking status: Patient denies any tobacco usage or history of. Screenin:06 [facility] ED Fall Risk Assessment (Adult) History of falling in the last 3 months, ko1 including since admission Yes- single mechanical fall (1 pt) Confusion or Disorientation No (0 pts) Intoxicated or Sedated No (0 pts) Impaired Gait Yes (1 pt) Mobility Assist Device Used Yes (1 pt) Altered Elimination Yes (1 pt) Score/Fall Risk Level 3 or more points = High Risk Oriented to surroundings, Maintained a safe environment, Educated pt \T\ family on fall prevention, incl call for assistance when getting out of bed, Assessed \T\ reinforced patient's understanding of fall precautions, Provided non-skid footwear, Hourly rounding (assess needs \T\ fall precautionary measures) done, Used ambulatory aids as needed (educated on \T\ assisted with), Used gait belt as appropriate Implemented a Fall Risk Plan of Care, Apply high fall risk patient identification: yellow non skid footwear/ fall signage, Activated bed/chair alarm, Remained w/in arm's length of patient and in sight while toileting, Offered frequent toileting (1:1 observation), Remained with patient while ambulating, Utilized family, sitter, or virtual cloth spreader screen printing as indicated. Abuse screen: Denies threats or abuse. Denies injuries from another. Nutritional screening: No deficits noted. Tuberculosis screening: No symptoms or risk factors identified. Assessment: 16:45 GI: Pt is actively vomiting undigested food. ko1 16:45 General: Appears ill, Behavior is calm, cooperative, appropriate for age. Pain: Denies ko1 pain. Neuro: Parakeet Raiser are weak on left Gait is unsteady. Cardiovascular: No deficits noted. Respiratory: No deficits noted. : No deficits noted. EENT: No deficits noted. Derm: No deficits noted. Musculoskeletal: No deficits noted. Vital Signs: 16:15 BP 77 / 48; Pulse 64; Resp 19 S; Temp 97.8(O); Pulse Ox 96% on 2 lpm NC; Weight 113.4 as6 kg (R); Height 6 ft. 1 in. (R); Pain 0/10; 16:45 BP 87 / 50; Pulse 68; Resp 16; Pulse Ox 98% on 2 lpm NC; ko1 16:45 BP 93 / 57; Pulse 62; Resp 16; Pulse Ox 97% on 2 lpm NC; ko1 16:45 BP 104 / 60; Pulse 59; Resp 15; Pulse Ox 98% ; ko1 17:57 BP 108 / 62; Pulse 60; Resp 16; Pulse Ox 98% on 2 lpm NC; ko1 18:23 BP 114 / 65; Pulse 62; Resp 16; Pulse Ox 98% on 2 lpm NC; ko1 19:28 BP 132 / 64; Pulse 64; Resp 19; Temp 97.8(TE); Pulse Ox 100% on R/A; Pain 0/10; tm6 16:15 Body Mass Index 32.98 (113.40 kg, 185.42 cm) as6 16:15 Pain Scale: Adult as6 19:28 Pain Scale: Adult tm6 ED Course: 15:52 Patient arrived in ED. rg4 15:56 Zaid Lemus PA is PHCP. cp 15:56 Cory Coffman MD is Attending Physician. cp 16:06 Blu Sandoval, ELAINE is Primary Nurse. as6 16:06 Patient has correct armband on for positive identification. Placed in gown. Bed in low ko1 position. Call light in reach. Side rails up X2. Provided Education on: labs/procedures. Client placed on continuous cardiac and pulse oximetry monitoring. NIBP monitoring applied. medart operator on. Door closed. Noise minimized. Lights dimmed. Warm blanket given. Pillow given. Verbal reassurance given. Assisted with dressing. Linen changed. 16:18 Triage completed. as6 16:45 Initial lab(s) drawn, by me, sent to lab. EKG done. Inserted saline lock: 20 gauge in ko1 right forearm, using aseptic technique. Blood collected. Oxygen administration via nasal cannula \T\ 2L/min. 16:49 Lactate w/ 2H reflex if indic. Sent. ko1 16:49 Basic Metabolic Panel Sent. ko1 16:49 CBC with Diff Sent. ko1 16:49 LFT's Sent. ko1 16:49 Magnesium Sent. ko1 16:49 NT PRO-BNP Sent. ko1 16:49 PT-INR Sent. ko1 16:49 Troponin HS Sent. ko1 17:04 CT Head C Spine In Process Unspecified. EDMS 17:40 XRAY Chest (1 view) In Process Unspecified. EDMS 17:57 No provider procedures requiring assistance completed. ko1 19:29 IV discontinued, intact, bleeding controlled, No redness/swelling at site. Pressure tm6 dressing applied. Administered Medications: 16:18 Drug: Ondansetron PO 4 mg PO once Route: PO; as6 17:11 Drug: NS 0.9% IV 500 ml IV at bolus once Route: IV; Rate: bolus; Site: right forearm; ko1 18:06 Follow up: Response: No adverse reaction; IV Status: Completed infusion; IV Intake: ko1 500ml Medication: 16:06 VIS not applicable for this client. ko1 Intake: 18:06 IV: 500ml; Total: 500ml. ko1 Outcome: 18:38 Discharge ordered by . cp 19:29 Discharged to home via wheelchair, with family, tm6 : Condition: stable :29 Discharge instructions given to patient, family, Instructed on discharge instructions, follow up and referral plans. medication usage, Demonstrated understanding of instructions, follow-up care, medications, Prescriptions given X : Patient left the ED. tm6 Signatures: Dispatcher [employer] EDMS Zaid Lemus PA PA cp Garcia, Rubi rg4 Blu Sandoval RN RN as6 Stormy Wolff RN RN ko1 Haley Prabhakar RN RN tm6
[2023-10-07 19:56] VITALS: TEMP 97.8
[2023-10-07 20:19] VITALS: BP 132/64; O2SAT 100
--- NOTE | 2023-10-08 14:55 | EKG ---
Test Date: 2023-10-07 Test Time: 16:35:12 Trauma Counsellor: KARINA MEASUREMENT RESULTS: Intervals: Rate: 63 [place]: 208 QRSD: 166 QT: 520 QTc: 532 [place]: P: 82 [place]: 208 QRS: -58 T: 108 INTERPRETIVE STATEMENTS: Normal sinus rhythm Left axis deviation Left bundle branch block Abnormal ECG Compared to ECG 07/20/2023 12:21:29 No significant changes Electronically Signed On 10-08-23 14:51:12 CDT by Amos Rob
== END 2023-10-07 19:29 | disposition home or self-care (01) ==
LOC: ER 15:51
DX: E86.9 Volume depletion, unspecified (principal)
CPT/HCPCS: 93005; 85025; 80048; 36415; 83735; 85610; 80076; 83605; 84484; 83880; 70450; 72125; 71045; 96360; 99285; Q0162; J7040

== ENCOUNTER 2023-10-18 18:10 | Inpatient (IN) | payer BC ==
--- NOTE | 2023-10-18 19:32 | RAD REPORT ---
EXAM DESCRIPTION: [place] Single View10/18/2023 7:05 pm CLINICAL HISTORY: Chest pain COMPARISON: September 2023 FINDINGS: The lungs appear clear of acute infiltrate. The heart is normal size IMPRESSION: No acute abnormalities displayed
--- NOTE | 2023-10-18 19:52 | RAD REPORT ---
EXAM DESCRIPTION: CT - Head Brain Wo Cont - 10/18/2023 7:40 pm CLINICAL HISTORY: Alteration of awareness/confusion COMPARISON: October 10, 2023 TECHNIQUE: Computed axial tomography of the head was obtained. IV contrast was not requested. All CT scans are performed using dose optimization technique as appropriate and may include automated exposure control or mA/KV adjustment according to patient size. FINDINGS: An intracranial bleed is not seen The ventricles are normal in caliber No extra-axial fluid collection is noted. 5 centimeter cystic encephalomalacia right frontal lobe. Old infarction right internal capsule Mild to moderate low-density areas within periventricular, deep and subcortical white matter likely r epresent ischemic changes secondary to small vessel disease. Fluid within the sinuses/ mastoids is not seen. IMPRESSION: No acute intracranial abnormality is seen If patient's symptoms persist MRI of the brain would be recommended
[2023-10-18 19:53] LABS: Specific Gravity 1.015 (1.005-1.030); Sqamous Epithelial None Seen /HPF (None Seen); Urine Bacteria None Seen /HPF (<20); Urine Bilirubin NEGATIVE (Negative); Urine Blood Negative (Negative); Urine Clarity Turbid (Clear); Urine Color Yellow (Yellow); Urine Crystals Unidentified Few /HPF (None Seen); Urine Culture Reflex Order NOT NEEDED; Urine Glucose NEGATIVE (Negative); Urine Ketones NEGATIVE (Negative); Urine Micro Reflex YN NO BILL MICROSCOPIC; Urine Mucus Slight /HPF (None Seen); Urine Nitrite NEGATIVE (Negative); Urine Protein TRACE (Negative); Urine RBC <5 /HPF (None Seen); Urine Urobilinogen 1+ (Normal); Urine WBC <5 /HPF (<5)
[2023-10-18 19:58] LABS: Absolute Lymphocytes (CBC) 1.3 K/uL (0.7-4.9); Absolute Monocytes 0.5 K/uL (0.1-1.3); Absolute Neutrophil 3.8 K/uL (1.8-8.0); Basophils % 0.6 % (0-1.3); Eosinophils % 0.3 % (0-4.4); Hematocrit 29.9 % (39.6-49.0); Hemoglobin 9.9 g/dL (13.6-17.9); Lymphocytes % 22.3 % (15.3-44.8); MCH 30.6 pg (27.0-35.0); MCHC 33.2 g/dL (32.0-36.0); MCV 92.1 fL (80-100); MPV 9.3 fL (7.6-11.3); Monocytes % 9.3 % (3.3-12.3); Neutrophils % 67.5 % (41.7-73.7); Nucleated Red Blood Cells % 0.1 % (0-0); Platelets 220 thou/uL (152-406); RBC Red Blood Cell Count 3.25 M/uL (4.33-5.43); Red Cell Distribution Width 14.7 % (12.1-15.2)
[2023-10-18 20:03] LABS: Albumin 3.5 g/dL (3.4-5.0); Albumin/Globulin Ratio 0.9 (1.1-1.8); Anion Gap 9.8 mEq/L (5.0-15.0); Bilirubin Direct 0.3 mg/dL (0-0.2); Bilirubin Indirect, Calculated 0.2 mg/dL (0.2-0.8); Bilirubin Total 0.5 mg/dL (0.2-1.0); Globulin 3.7 g/dL (2.3-3.5); Magnesium 2.1 mg/dL (1.6-2.4); Potassium 3.8 mEq/L (3.5-5.1); Protein, Total 7.2 g/dL (6.4-8.2); Troponin High Sensitivity 13.5 pg/mL (<58.9)
--- NOTE | 2023-10-18 21:27 | EDPHYS ---
Physician Documentation [facility] Name: Monty Faulkner Age: 63 yrs Sex: Male : 1960 Arrival Date: 10/18/2023 Time: 18:10 Bed 8 Private MD: ED Physician Zaid Rdz HPI: 10/17 19:56 This 63 yrs old Black Male presents to ER via EMS with complaints of Altered Mental rt Status. 19:56 Patient presents to the ED with reported altered mental status, agitation. Patient was rt at [facility] in [place], when he became agitated with his . Patient reportedly does have a history of residual left-sided deficits from previous stroke. Patient is A\T\O x 4, denies any complaints currently. Denies other acute complaint, symptoms are moderate in severity, no other aggravating or alleviating factors.. Historical: - Allergies: 18:20 No Known Allergies; kc6 - PMHx: 18:20 CVA; Diabetes - NIDDM; Hypertension; Pulmonary Embolism; Seizures; TIA; Congestive kc6 heart failure; Atrial fibrillation; - PSHx: 18:20 cardiac stent; kc6 - Immunization history:: Adult Immunizations up to date. - Infectious Disease History:: Denies. - Social history:: Smoking status: Patient denies any tobacco usage or history of. - Family history:: not pertinent. ROS: 19:56 Constitutional: Negative for fever, chills, and weight loss, Cardiovascular: Negative rt for chest pain, palpitations, and edema, Respiratory: Negative for shortness of breath, cough, wheezing, and pleuritic chest pain, Abdomen/GI: Negative for abdominal pain, nausea, vomiting, diarrhea, and constipation, MS/Extremity: Negative for injury and deformity, Skin: Negative for injury, rash, and discoloration, 19:56 Neuro: Positive for altered mental status, Negative for loss of consciousness, Exam: 19:56 Constitutional: This is a well developed, well nourished patient who is awake, alert, rt and in no acute distress. Head/Face: Normocephalic, atraumatic. Chest/axilla: Normal chest wall appearance and motion. Nontender with no deformity. No lesions are appreciated. Cardiovascular: Regular rate and rhythm with a normal S1 and S2. No gallops, murmurs, or rubs. Normal PMI, no JVD. No pulse deficits. Respiratory: Lungs have equal breath sounds bilaterally, clear to auscultation and percussion. No rales, rhonchi or wheezes noted. No increased work of breathing, no retractions or nasal flaring. Abdomen/GI: Soft, non-tender, with normal bowel sounds. No distension or tympany. No guarding or rebound. No evidence of tenderness throughout. Skin: Warm, dry with normal turgor. Normal color with no rashes, no lesions, and no evidence of cellulitis. 19:56 ECG was reviewed by the Attending Physician. 19:56 Neuro: Speech normal, currently 2 through 12 intact, residual left-sided weakness, no weakness on the right, sensation intact, Vital Signs: 18:19 BP 118 / 79; Pulse 97; Resp 18 S; Temp 98.4(O); Pulse Ox 97% on R/A; Weight 124.28 kg [facility] (R); Height 6 ft. 1 in. (R); Pain 0/10; 19:48 BP 132 / 79; Pulse 104; Resp 19; Temp 98.5; Pulse Ox 97% on R/A; kd3 20:47 BP 132 / 76; Pulse 83; Resp 16; Pulse Ox 98% on R/A; kd3 21:48 BP 142 / 82; Pulse 94; Resp 17; Pulse Ox 99% on R/A; kd3 10/18 01:15 BP 141 / 77; Pulse 88; Resp 19; Pulse Ox 98% on R/A; kd3 10/17 18:19 Body Mass Index 36.15 (124.28 kg, 185.42 cm) [facility] 10/17 18:19 Pain Scale: Adult [facility] MDM: 10/17 18:45 Patient medically screened. rt 10/17 18:51 Order name: Basic Metabolic Panel; Complete Time: 21:23 rt 10/17 18:51 Order name: CBC with Diff; Complete Time: 21:23 rt 10/17 18:51 Order name: LFT's; Complete Time: 21:23 rt 10/17 18:51 Order name: Magnesium; Complete Time: 21:23 rt 10/17 18:51 Order name: Troponin HS; Complete Time: 21:23 rt 10/17 18:51 Order name: UAM; Complete Time: 19:55 rt 10/17 22:37 Order name: Urinalysis w/ reflexes [facility] 10/17 22:37 Order name: CBC with Automated Diff [facility] 10/17 22:37 Order name: CBC with Automated Diff [facility] 10/17 22:37 Order name: Comprehensive Metabolic Panel [facility] 10/17 22:37 Order name: Comprehensive Metabolic Panel [facility] 10/17 22:37 Order name: Troponin High Sensitivity [facility] 10/17 22:37 Order name: Troponin High Sensitivity [facility] 10/17 22:37 Order name: Troponin High Sensitivity [facility] 10/17 22:37 Order name: Troponin High Sensitivity [facility] 10/17 18:51 Order name: XRAY Chest (1 view); Complete Time: 19:36 rt 10/17 18:51 Order name: CT Head Brain wo Cont; Complete Time: 19:53 rt 10/17 18:51 Order name: Cardiac monitoring; Complete Time: 18:53 rt 10/17 18:51 Order name: EKG - Nurse/Tech; Complete Time: 18:53 rt 10/17 18:51 Order name: IV Saline Lock; Complete Time: 19:31 rt 10/17 18:51 Order name: Labs collected and sent; Complete Time: 19:31 rt 10/17 18:51 Order name: O2 Per Protocol; Complete Time: 18:53 rt 10/17 18:51 Order name: O2 Sat Monitoring; Complete Time: 18:53 rt EC:56 Rate is 89 beats/min. Rhythm is regular, Normal Sinus Rhythm with Left bundle branch rt block. QRS [place] is Normal. QRS interval is normal. QT interval is normal. No Q waves. 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 EDMS EDMS 18:52 18:52 Head Brain Wo Cont+CT.RAD.BRZ ordered. EDMS EDMS 22:46 21:26 art schulz
--- NOTE | 2023-10-18 21:27 | ER ---
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 pt is A\T\O x4 upon EMS arrival and calm. BGL en route 103. Coronavirus screen: At this time, the client does not indicate any symptoms associated with coronavirus-19. Ebola Screen: No symptoms or risks identified at this time. Initial Sepsis Screen: Does the patient meet any 2 criteria? No. Patient's initial sepsis screen is negative. Does the patient have a suspected source of infection? No. Patient's initial sepsis screen is negative. Risk Assessment: Do you want to hurt yourself or someone else? Patient reports no desire to harm self or others. Onset of symptoms was October 18, 2023. 18:19 Method Of Arrival: EMS: [facility] kc6 18:19 Acuity: YAYA 3 kc6 Triage Assessment: 18:20 General: Appears in no apparent distress. comfortable, well groomed, well developed, kc6 Behavior is calm, cooperative, appropriate for age. Pain: Denies pain. EENT: No signs and/or symptoms were reported regarding the EENT system. Neuro: Level of Consciousness is awake, alert, obeys commands, Oriented to person, place, time, situation, Appropriate for age. Cardiovascular: Capillary refill < 3 seconds. Respiratory: Airway is patent Trachea midline Respiratory effort is even, unlabored, Respiratory pattern is regular, symmetrical. GI: No signs and/or symptoms were reported involving the gastrointestinal system. : No signs and/or symptoms were reported regarding the genitourinary system. Urine is clear. Derm: No signs and/or symptoms reported regarding the dermatologic system. Skin is intact, is healthy with good turgor, Skin is pink, warm \T\ dry. Musculoskeletal: No signs and/or symptoms reported regarding the musculoskeletal system. Circulation, motion, and sensation intact. Capillary refill < 3 seconds, Range of motion: intact in all extremities. Historical: - Allergies: 18:20 No Known Allergies; kc6 - PMHx: 18:20 CVA; Diabetes - NIDDM; Hypertension; Pulmonary Embolism; Seizures; TIA; Congestive kc6 heart failure; Atrial fibrillation; - PSHx: 18:20 cardiac stent; kc6 - Immunization history:: Adult Immunizations up to date. - Infectious Disease History:: Denies. - Social history:: Smoking status: Patient denies any tobacco usage or history of. - Family history:: not pertinent. Screenin:28 [facility] ED Fall Risk Assessment (Adult) History of falling in the last 3 months, kc6 including since admission No falls in past 3 months (0 pts) Confusion or Disorientation No (0 pts) Intoxicated or Sedated No (0 pts) Impaired Gait Yes (1 pt) Mobility Assist Device Used Yes (1 pt) Altered Elimination No (0 pt) Score/Fall Risk Level 0 - 2 = Low Risk. Abuse screen: Denies threats or abuse. Denies injuries from another. Nutritional screening: No deficits noted. Tuberculosis screening: No symptoms or risk factors identified. Assessment: 18:28 Reassessment: please see triage. kc6 19:34 General: Appears in no apparent distress. Behavior is calm, cooperative, Pt appears to kd3 be alert and oriented x 2, answers all questions appropriately, is aware of his location to the [facility] but was unaware of the type of facility he is currently in. Pt is oriented to himself reports no pain but does report nausea. Pt is unsure of why he was transferred to the ED. Pt is cooperative with assessment. IV placed in the right A/C. Pt's skin is warm to the touch but he is afebrile at 98.3. . Pain: Denies pain. Cardiovascular: Capillary refill < 3 seconds Patient's skin is warm and dry. Respiratory: Airway is patent Trachea midline Respiratory effort is even, unlabored, Respiratory pattern is regular, symmetrical. GI:. GI: Reports nausea. EENT: Oral mucosa is dry. 21:47 General: This RN spoke with the patient's , Emily at [phone] and notified her of kd3 the patient's status and admission plan to hospital. . 23:36 General: Pt became combative, showing his fists to nursing staff when attempting to kd3 draw new labs. Pt redirected. Vital Signs: 18:19 BP 118 / 79; Pulse 97; Resp 18 S; Temp 98.4(O); Pulse Ox 97% on R/A; Weight 124.28 kg kc6 (R); Height 6 ft. 1 in. (R); Pain 0/10; 19:48 BP 132 / 79; Pulse 104; Resp 19; Temp 98.5; Pulse Ox 97% on R/A; kd3 20:47 BP 132 / 76; Pulse 83; Resp 16; Pulse Ox 98% on R/A; kd3 21:48 BP 142 / 82; Pulse 94; Resp 17; Pulse Ox 99% on R/A; kd3 10/18 01:15 BP 141 / 77; Pulse 88; Resp 19; Pulse Ox 98% on R/A; kd3 10/17 18:19 Body Mass Index 36.15 (124.28 kg, 185.42 cm) [facility] 10/17 18:19 Pain Scale: Adult [facility] ED Course: 10/17 18:19 Patient arrived in ED. kc6 18:20 Presley Luna MD is Attending Physician. rt 18:20 Triage completed. kc6 18:20 Arm band placed on. kc6 18:28 Patient has correct armband on for positive identification. Bed in low position. Call [facility] light in reach. Side rails up X2. secured entrance monitor on. Pulse ox on. NIBP on. Pillow given. 18:53 Arielle Arredondo RN is Primary Nurse. kc6 19:00 Report given to ELAINE Mckenzie \T\ ELAINE Grossman. kc6 19:07 XRAY Chest (1 view) In Process Unspecified. EDMS 19:32 Basic Metabolic Panel Sent. kd3 19:32 CBC with Diff Sent. kd3 19:32 LFT's Sent. kd3 19:32 Magnesium Sent. kd3 19:32 Troponin HS Sent. kd3 19:41 CT Head Brain wo Cont In Process Unspecified. EDMS 19:49 Initial lab(s) drawn, by me, sent to lab. Urine collected: clean catch specimen, clear, kd3 eusebio colored. Inserted saline lock: 20 gauge in right antecubital area, using aseptic technique. Blood collected. 20:07 Attending Physician role handed off by Presley Luna MD [facility] 20:07 Zaid Rdz MD is Attending Physician. [facility] 21:25 Tenzin Harmon MD is Hospitalizing Provider. [facility] 10/18 01:14 No provider procedures requiring assistance completed. Patient admitted, IV remains in kd3 place. 01:15 Provided Education on: admit. kd3 Administered Medications: No medications were administered Medication: 10/17 19:50 VIS not applicable for this client. kd3 Outcome: 21:26 Decision to Hospitalize by Provider. [facility] 10/18 01:14 Admitted to Med/surg kd3 Condition: stable Discharge instructions given to patient, Instructed on the need for admit, 01:15 Patient left the ED. kd3 Signatures: Dispatcher [employer] EDMS Zaid Rdz MD MD cha Doucette, Kyli, RN RN kd3 Arielle Arredondo RN RN kc6 Presley Luna MD MD rt
[2023-10-18] MEDS ORDERED: ACETAMINOPHEN 325 MG TABLET PO PRN (22:31)
[2023-10-18] MEDS ORDERED: ALBUTEROL 2.5 MG/3 ML NEB SOL NEB PRN (22:31)
[2023-10-18] MEDS ORDERED: ONDANSETRON 4 MG/2 ML VIAL IV PRN (22:31)
--- NOTE | 2023-10-18 22:31 | P.HP ---
Certification for Inpatient Patient admitted to: Inpatient With expected LOS: >2 Midnights Practitioner: I am a practitioner with admitting privileges, knowledge of patient current condition, hospital course, and medical plan of care. Services: Services provided to patient in accordance with Admission requirements found in Title 42 Section 412.3 of the Code of Federal Regulations Patient History Date of Service: 10/19/23 Reason for admission: AMS History of Present Illness: 63 yrs old Male with past medical history of CVA, diabetes, hypertension, pulmonary embolism, seizures, TIA, CHF, atrial fibrillation, who was brought to ER with altered mental status. Patient was in [facility] in [place]. He was recuperating from CVA with residual left-sided weakness. Brought to ER with altered mental status and agitation. Patient is a poor historian hence most of the history is obtained from the chart review and also talking to the ER physician. No fever or chills. No nausea vomiting diarrhea. Patient was assessed in the ER and is admitted for further management Allergies No Known Allergies Allergy (Verified 10/19/23 03:31) Home medications list reviewed: Yes Home Medications: Amiodarone HCl [Pacerone] 200 mg PO BID 10/10/23 Clopidogrel Bisulfate [Plavix*] 75 mg PO DAILY 10/10/23 Pantoprazole [Protonix Tab*] 40 mg PO DAILY 10/10/23 Sertraline [Zoloft*] 100 mg PO DAILY 10/10/23 Tamsulosin [Flomax*] 0.4 mg PO DAILY 10/10/23 Apixaban [Eliquis] 5 mg PO BID 10/15/23 Metoclopramide [Reglan*] 10 mg PO ACHS tab 10/15/23 Spironolactone [Aldactone] 25 mg PO BID 30 Days #60 tab 10/15/23 lamoTRIgine [Lamictal*] 300 mg PO BID tab 10/15/23 Acetaminophen [Tylenol] 650 mg PO Q4HP PRN 10/19/23 Atorvastatin Calcium [Lipitor] 40 mg PO BEDTIME 10/19/23 Bisacodyl [Dulcolax*] 1 supp [place] DAILYPRN PRN 10/19/23 Melatonin [Melatonin*] 3 mg PO BEDTIME PRN PRN 10/19/23 Ondansetron [Zofran (Odt)*] 4 mg PO Q6HP PRN 10/19/23 - Past Medical/Surgical History Diabetic: Yes Past Medical History: Reviewed- Non-Contributory -: BO-ulh-aazoyly-dependent -: Epilepsy -: pulmonary embolism -: CVA -: CAD -: Hypertension -: A-fib on anticoagulation Past Surgical History: Reviewed- Non-Contributory -: cyst removal Left lower forearm -: Cardiac cath with 1 stent Psychosocial/ Personal History: Patient is , lives at home with his - Family History Family History: Reviewed- Non-Contributory - Family History Father -: Heart disease Mother -: Diabetes - Social History Smoking Status: Unknown if ever smoked Alcohol use: Yes CD- Drugs: No Caffeine use: No Review of Systems is unable to be obtained Physical Examination - Vital Signs Temperature: 98.3 F Blood Pressure: 130/70 Pulse: 78 Respirations: 18 Pulse Ox (%): 94 - Physical Exam General: Confused, Unresponsive HEENT: Atraumatic, Normocephalic Neck: Supple, No Thyromegaly Respiratory: Normal air movement, Crackles/rales Cardiovascular: Regular rate/rhythm, Normal S1 S2, Edema Capillary refill: <2 Seconds Gastrointestinal: Soft and benign, W/out hepatosplenomegaly Musculoskeletal: No clubbing, No swelling Integumentary: No rashes, No tenderness/swelling Neurological: Abnormal gait, Abnormal speech, Abnormal strength, Abnormal reflexes Lymphatics: No axilla or inguinal lymphadenopathy - Studies Laboratory Data (last 24 hrs) 10/18/23 10/18/23 19:27 19:27 WBC 5.70 Hgb 9.9 L Hct 29.9 L Plt Count 220 Sodium 139 Potassium 3.8 BUN 9 Creatinine 1.53 H Glucose 112 H Magnesium 2.1 Total Bilirubin 0.5 AST 63 H ALT 98 H Alkaline Phosphatase 95 Assessment and Plan - Problems (Diagnosis) (1) Acute metabolic encephalopathy Current Visit: Yes Status: Acute Plan: Acute encephalopathy metabolic Patient looks dehydrated Started on IV hydration Will keep n.p.o. for now CT head is negative for any acute changes Patient had previous strokes PT OT evaluation Monitor closely on telemetry CVA/TIA Weakness of left-sided body Started on aspirin and statin Continue Plavix CT findings noted Monitor neuro vital signs Monitor under telemetry Hypertension Antihypertensives titrated Continue home medications and titrate as needed Hyperlipidemia Continue statin History of seizure disorder Continue antiepileptic medications Diabetes Insulin sliding scale Accu-Chek before every meal and at bedtime Anemia of chronic disease Monitor H&H closely No overt bleeding at this time GI/DVT prophylaxis Advanced directive full code Discharge Plan: Jail Plan to discharge in: 48 Hours - Advance Directives Does patient have a Living Will: No Does patient have a Durable POA for Healthcare: No - Code Status/Comfort Care Code Status: Full Code Time Spent Managing Pts Care (In Minutes): 48
[2023-10-19 02:16] LABS: Specific Gravity 1.014 (1.005-1.030); Urine Bilirubin NEGATIVE (Negative); Urine Blood Negative (Negative); Urine Clarity Clear (Clear); Urine Color Yellow (Yellow); Urine Glucose NEGATIVE (Negative); Urine Ketones 1+ (Negative); Urine Microscopic Reflex YN NO UMIC; Urine Nitrite NEGATIVE (Negative); Urine Protein NEGATIVE (Negative); Urine Urobilinogen 1+ (Normal)
[2023-10-19 03:31] VITALS: BMI 36.1
[2023-10-19] MEDS: D5 0.45 NS 1,000 ML IV SCH (04:57)
[2023-10-19] MEDS: METOCLOPRAMIDE 5 MG TAB PO SCH (07:30)
[2023-10-19 07:58] LABS: Absolute Basophils 0.1 K/uL (0-0.5); Absolute Lymphocytes (CBC) 1.1 K/uL (0.7-4.9); Absolute Monocytes 0.7 K/uL (0.1-1.3); Absolute Neutrophil 3.5 K/uL (1.8-8.0); Basophils % 1.1 % (0-1.3); Eosinophils % 0.4 % (0-4.4); Hematocrit 29.2 % (39.6-49.0); MCH 31.4 pg (27.0-35.0); MCHC 34.2 g/dL (32.0-36.0); MCV 91.8 fL (80-100); MPV 8.7 fL (7.6-11.3); Monocytes % 12.6 % (3.3-12.3); Neutrophils % 65.9 % (41.7-73.7); Platelets 209 thou/uL (152-406); RBC Red Blood Cell Count 3.18 M/uL (4.33-5.43); Red Cell Distribution Width 14.8 % (12.1-15.2)
[2023-10-19 08:19] LABS: Albumin 3.5 g/dL (3.4-5.0); Anion Gap 9.6 mEq/L (5.0-15.0); Bilirubin Total 0.6 mg/dL (0.2-1.0); Globulin 3.6 g/dL (2.3-3.5); Potassium 3.6 mEq/L (3.5-5.1); Protein, Total 7.1 g/dL (6.4-8.2)
[2023-10-19 08:33] VITALS: O2SAT 94
[2023-10-19] MEDS: PANTOPRAZOLE 40MG TABLET PO SCH (09:00)
[2023-10-19] MEDS: AMIODARONE HCL 200 MG TAB PO SCH (09:00)
[2023-10-19] MEDS: CLOPIDOGREL 75 MG TABLET PO SCH (09:00)
[2023-10-19] MEDS: lamoTRIgine 100 MG TAB PO SCH (09:00)
[2023-10-19] MEDS: SERTRALINE HCL 50 MG TAB PO SCH (09:00)
[2023-10-19] MEDS: TAMSULOSIN 0.4 MG SR CAP PO SCH (09:00)
[2023-10-19] MEDS: APIXABAN 5 MG TABLET PO SCH (09:00)
[2023-10-19] MEDS ORDERED: ENOXAPARIN 40 MG/0.4 ML SQ SCH (09:00)
--- NOTE | 2023-10-19 14:10 | P.PN ---
Subjective Date of Service: 10/19/23 Chief Complaint: AMS Patient is awake, interactive but seems confused. No issues overnight, no agitation reported. He did not pass bedside swallow evaluation. Physical Examination - Vital Signs Temperature: 98.2 F Blood Pressure: 152/74 Pulse: 84 Respirations: 14 Pulse Ox (%): 99 - Studies Laboratory Data (last 24 hrs) 10/18/23 10/18/23 19:27 19:27 WBC 5.70 Hgb 9.9 L Hct 29.9 L Plt Count 220 Sodium 139 Potassium 3.8 BUN 9 Creatinine 1.53 H Glucose 112 H Magnesium 2.1 Total Bilirubin 0.5 AST 63 H ALT 98 H Alkaline Phosphatase 95 Assessment And Plan - Plan Physical Exam General: Confused, Unresponsive HEENT: Atraumatic, Normocephalic Neck: Supple, No Thyromegaly Respiratory: Normal air movement, Crackles/rales Cardiovascular: Regular rate/rhythm, Normal S1 S2, Edema Capillary refill: <2 Seconds Gastrointestinal: Soft and benign, W/out hepatosplenomegaly Musculoskeletal: No clubbing, No swelling Integumentary: No rashes, No tenderness/swelling Neurological: Abnormal gait, Abnormal speech, Abnormal strength, Abnormal reflexes Lymphatics: No axilla or inguinal lymphadenopathy Assessment and Plan Acute encephalopathy metabolic Etiology is unclear. UA is negative, chest x-ray shows no pneumonia. He has no leukocytosis. Patient is more awake today. CT head is negative for any acute changes Patient had previous strokes Continue PT and OT CVA/TIA Oropharyngeal dysphagia Weakness of left-sided body CT head shows no acute changes. Continue aspirin, Plavix and statin Continue Plavix. Speech therapy input appreciated. Patient placed on soft diet. Neurochecks PT and OT. Hypertension Continue home antihypertensives Hyperlipidemia Continue statin History of seizure disorder Continue antiepileptic medications Diabetes type II Insulin sliding scale Chronic atrial fibrillation Continue amiodarone and Eliquis. Anemia of chronic disease No active bleeding Monitor H&H closely DVT prophylaxis: On Eliquis. Advanced directive full code
[2023-10-19] MEDS ORDERED: MELATONIN 3 MG TABLET PO PRN (14:14)
[2023-10-19] MEDS: ATORVASTATIN 40 MG TAB PO SCH (20:30)
[2023-10-20 03:50] LABS: Absolute Eosinophils 0.1 K/uL (0-0.5); Absolute Lymphocytes (CBC) 1.7 K/uL (0.7-4.9); Absolute Monocytes 0.6 K/uL (0.1-1.3); Absolute Neutrophil 2.3 K/uL (1.8-8.0); Basophils % 0.9 % (0-1.3); Eosinophils % 1.5 % (0-4.4); Hematocrit 28.6 % (39.6-49.0); Hemoglobin 9.5 g/dL (13.6-17.9); Lymphocytes % 35.2 % (15.3-44.8); MCH 30.8 pg (27.0-35.0); MCHC 33.3 g/dL (32.0-36.0); MCV 92.4 fL (80-100); MPV 9.3 fL (7.6-11.3); Monocytes % 12.8 % (3.3-12.3); Neutrophils % 49.6 % (41.7-73.7); Platelets 210 thou/uL (152-406); RBC Red Blood Cell Count 3.09 M/uL (4.33-5.43); Red Cell Distribution Width 14.9 % (12.1-15.2)
[2023-10-20 03:56] LABS: Anion Gap 7.4 mEq/L (5.0-15.0); Potassium 3.4 mEq/L (3.5-5.1)
[2023-10-20] MEDS: POTASSIUM CL SA 10 MEQ TAB PO ONE (08:37)
[2023-10-20] MEDS: lamoTRIgine 150 MG TAB PO SCH (09:04)
--- NOTE | 2023-10-20 12:57 | P.PN ---
Subjective Date of Service: 10/20/23 Chief Complaint: AMS Patient is awake, interactive. reports patient was hallucinating last night. No agitation reported. He is tolerating soft diet. Physical Examination - Vital Signs Temperature: 98.0 F Blood Pressure: 119/67 Pulse: 73 Respirations: 20 Pulse Ox (%): 97 Assessment And Plan - Plan Physical Exam General: Awake, interactive, NAD. Neck: Supple, No elevated JVD Respiratory: Normal air movement, Crackles/rales Cardiovascular: Regular rate/rhythm, Normal S1 S2, Edema Gastrointestinal: Soft and benign, W/out hepatosplenomegaly Musculoskeletal: No clubbing, No swelling Integumentary: No rashes, No tenderness/swelling Neurological: Mild left-sided weakness-chronic. Assessment and Plan Acute encephalopathy metabolic Etiology is unclear. UA is negative, chest x-ray shows no pneumonia. He has no leukocytosis. CT head is negative for any acute changes Patient had previous strokes Suspect vascular dementia given hallucinations reported by spouse. Counseled on Seroquel at bedtime for dementia with . Continue PT and OT CVA/TIA Oropharyngeal dysphagia Weakness of left-sided body CT head shows no acute changes. Continue aspirin, Plavix and statin Continue Plavix. Speech therapy input appreciated. Patient placed on soft diet. PT and OT. Patient states that he does not want to go back to [facility]. Spouse requested for inpatient rehab here conference services director consulted to evaluate for inpatient rehab placement. Hypertension Continue home antihypertensives Hyperlipidemia Continue statin History of seizure disorder Patient's lamotrigine was increased to 300 mg twice daily during hospitalization 1 week ago. Spouse is requesting to decrease the dose back to patient's original dose. Will decrease lamotrigine to 200 mg twice daily. Diabetes type II Insulin sliding scale Chronic atrial fibrillation Continue amiodarone and Eliquis. Anemia of chronic disease No active bleeding Monitor H&H closely DVT prophylaxis: On Eliquis. Advanced directive full code
--- NOTE | 2023-10-20 14:09 | EKG ---
Test Date: 2023-10-18 Test Time: 19:17:56 Information Systems Audit Manager: VIKAS MEASUREMENT RESULTS: Intervals: Rate: 89 IA: 142 QRSD: 172 QT: 466 QTc: 566 [place]: P: IA: 142 QRS: 1 T: 101 INTERPRETIVE STATEMENTS: Normal sinus rhythm Left bundle branch block Abnormal ECG Compared to ECG 10/10/2023 12:27:18 No significant changes Electronically Signed On 10-20-23 14:06:42 CDT by James Alegria
[2023-10-20] MEDS: lamoTRIgine 100 MG TAB PO SCH (21:14)
[2023-10-20] MEDS: BISACODYL 10 MG RECTAL SUPP PR PRN (22:40)
[2023-10-21] MEDS: ONDANSETRON 4 MG/2 ML VIAL IV PRN (02:25)
[2023-10-21 05:40] LABS: Absolute Lymphocytes (CBC) 0.7 K/uL (0.7-4.9); Absolute Monocytes 0.8 K/uL (0.1-1.3); Basophils % 0.4 % (0-1.3); Eosinophils % 0.3 % (0-4.4); Hematocrit 29.9 % (39.6-49.0); Lymphocytes % 9.1 % (15.3-44.8); MCH 31.2 pg (27.0-35.0); MCHC 33.5 g/dL (32.0-36.0); MCV 92.9 fL (80-100); MPV 9.4 fL (7.6-11.3); Monocytes % 10.5 % (3.3-12.3); Neutrophils % 79.7 % (41.7-73.7); Nucleated Red Blood Cells % 0.1 % (0-0); Platelets 205 thou/uL (152-406); RBC Red Blood Cell Count 3.22 M/uL (4.33-5.43); Red Cell Distribution Width 14.6 % (12.1-15.2)
[2023-10-21 06:09] LABS: Anion Gap 8.8 mEq/L (5.0-15.0); Potassium 3.8 mEq/L (3.5-5.1)
[2023-10-21 08:23] LABS: Magnesium 2.1 mg/dL (1.6-2.4); Phosphorus 3.3 mg/dL (2.5-4.9)
[2023-10-21] MEDS: POTASSIUM 25 MEQ EFFERV TAB PO ONE (08:35)
--- NOTE | 2023-10-21 12:54 | P.PN ---
Subjective Date of Service: 10/21/23 Chief Complaint: AMS Patient denies any complaint. No agitation reported. He is tolerating soft diet. Physical Examination - Vital Signs Temperature: 98.3 F Blood Pressure: 98/53 Pulse: 79 Respirations: 16 Pulse Ox (%): 96 Assessment And Plan - Plan Physical Exam General: Awake, interactive, NAD. Neck: Supple, No elevated JVD Respiratory: Normal air movement, mild bibasilar crackles. Cardiovascular: Regular rate/rhythm, Normal S1 S2, Edema Gastrointestinal: Soft and benign, no tenderness Musculoskeletal: No clubbing, No swelling Integumentary: No rashes, No tenderness/swelling Neurological: Mild left-sided weakness-chronic. Assessment and Plan Acute encephalopathy metabolic Etiology is unclear. UA is negative, chest x-ray shows no pneumonia. He has no leukocytosis. CT head is negative for any acute changes Patient had previous strokes Suspect vascular dementia given hallucinations reported by spouse. Counseled on Seroquel at bedtime for dementia with . Continue PT and OT CVA/TIA Oropharyngeal dysphagia Weakness of left-sided body CT head shows no acute changes. Continue aspirin, Plavix and statin Continue Plavix. Speech therapy input appreciated. Patient is tolerating soft diet Continue PT and OT. Patient states that he does not want to go back to [facility]. Spouse requested for inpatient rehab here senior administrative services officer consulted to evaluate for inpatient rehab placement. Hypertension Continue home antihypertensives Hyperlipidemia Continue statin History of seizure disorder Patient's lamotrigine was increased to 300 mg twice daily during hospitalization 1 week ago. Spouse is requesting to decrease the dose back to patient's original dose. Lamotrigine dose decreased to 20 mg twice a day. Diabetes type II Insulin sliding scale Chronic atrial fibrillation Continue amiodarone and Eliquis. Anemia of chronic disease No active bleeding Monitor H&H closely DVT prophylaxis: On Eliquis. Advanced directive full code
[2023-10-22 09:31] LABS: Absolute Eosinophils 0.1 K/uL (0-0.5); Absolute Lymphocytes (CBC) 1.3 K/uL (0.7-4.9); Absolute Monocytes 0.7 K/uL (0.1-1.3); Absolute Neutrophil 3.7 K/uL (1.8-8.0); Basophils % 0.6 % (0-1.3); Hematocrit 31.4 % (39.6-49.0); Hemoglobin 10.4 g/dL (13.6-17.9); MCH 30.9 pg (27.0-35.0); MCHC 33.2 g/dL (32.0-36.0); MCV 93.2 fL (80-100); MPV 9.8 fL (7.6-11.3); Monocytes % 11.4 % (3.3-12.3); Nucleated Red Blood Cells % 0.1 % (0-0); Platelets 207 thou/uL (152-406); RBC Red Blood Cell Count 3.37 M/uL (4.33-5.43); Red Cell Distribution Width 14.6 % (12.1-15.2)
[2023-10-22 09:52] LABS: Anion Gap 7.9 mEq/L (5.0-15.0); Potassium 3.9 mEq/L (3.5-5.1)
--- NOTE | 2023-10-22 18:50 | P.PN ---
Date of Service: 10/22/23 Staff report patient had a bowel movement which looked maroon. Stool inspected and confirmed maroon stool. Patient is on Eliquis and Plavix. Patient with history of A-fib with high [id number], High risk risk for CVA is quite high. Patient explained to the patient, and daughter and and they agree that given his high risk for CVA, we will continue Eliquis, monitor for active bleeding and monitor H&H. Eliquis will be held if his hemoglobin drop or patient continues to bleed. Will hold Plavix for now. Monitor H&H every 12.
[2023-10-22 19:47] LABS: Hematocrit 28.1 % (39.6-49.0); Hemoglobin 9.3 g/dL (13.6-17.9)
[2023-10-23 07:22] LABS: Albumin 3.2 g/dL (3.4-5.0); Albumin/Globulin Ratio 0.9 (1.1-1.8); Bilirubin Total 0.5 mg/dL (0.2-1.0); Globulin 3.6 g/dL (2.3-3.5); Magnesium 2.1 mg/dL (1.6-2.4); Phosphorus 3.3 mg/dL (2.5-4.9); Protein, Total 6.8 g/dL (6.4-8.2)
[2023-10-23 07:23] LABS: Absolute Neutrophil 2.8 K/uL (1.8-8.0); Basophils % 0.2 % (0-1.3); Eosinophils % 2.2 % (0-4.4); Hematocrit 59.1 % (39.6-49.0); Hemoglobin 18.9 g/dL (13.6-17.9); Lymphocytes % 17.8 % (15.3-44.8); MCH 29.8 pg (27.0-35.0); Monocytes % 8.4 % (3.3-12.3); Neutrophils % 71.4 % (41.7-73.7); Nucleated Red Blood Cells % 0.5 % (0-0); Platelets 64 thou/uL (152-406); RBC Red Blood Cell Count 6.35 M/uL (4.33-5.43)
[2023-10-23 07:24] LABS: Absolute Eosinophils 0.1 K/uL (0-0.5); Absolute Lymphocytes (CBC) 0.7 K/uL (0.7-4.9); Absolute Monocytes 0.3 K/uL (0.1-1.3)
[2023-10-23 07:59] LABS: Band Neutrophils 6 % (0-1); Differential Total Cells Count 100; Eosinophils 4 % (0-3); Lymphocytes 29 % (15-42); Metamyelocytes 1 % (0-0); Monocytes 2 % (0-10); Segmented Neutrophils 57 % (40-80)
[2023-10-23 08:00] LABS: Platelet Estimate DECR
[2023-10-23 08:02] LABS: Anisocytosis 2+; Blood Morphology Comment NOTED (NOT SEEN); Hypochromasia 2+; Platelets, Giant OBSEERVED
--- NOTE | 2023-10-23 09:43 | P.DS ---
Admission Date: 10/18/23 Discharge Date: 10/23/23 Disposition: TRANSFER TO INPATIENT REHAB Discharge Condition: FAIR Reason for Admission: AMS Brief History of Present Illness: 63yo M, PMH: CVA, diabetes, hypertension, pulmonary embolism, seizures, TIA, CHF, atrial fibrillation, Patient was brought to ER with altered mental status. Patient was in [facility] in [place]. He was recuperating from CVA with residual left-sided weakness. Brought to ER with altered mental status and agitation. Patient is a poor historian hence most of the history is obtained from the chart review and also talking to the ER physician. No fever or chills. No nausea vomiting diarrhea. Patient was assessed in the ER and is admitted for further management Hospital Course: Problem List: Acute encephalopathy metabolic, improved ~baseline hx prior CVA/TIA Oropharyngeal dysphagia Hypertension Hyperlipidemia Seizure disorder NIDDM2 Chronic a-fib on anticoagulation Anemia of chronic disease Physician discharge instructions: Patient presented with altered mentation, confusion from rehab. He was recently hospitalized 10/09-10/14 for syncope after inappropriate vagal stimulation from his gastroparesis / vomiting. At that time there was concern for possible seizure activity and Neurology increased his lamictal dose. The cause of this episode of confusion remains a bit unclear. It resolved and patient was maintained on his usual home medications with exception of lowering his lamictal dose to the previous 200mg BID instead of 300mg. Highest suspicion for possible vascular dementia given his symptoms and medical history, possibly a component of increasing the lamictal dose. CT head was without any new/acute findings. Labwork was rather unremarkable - no leukocytosis, no significant electrolyte derangements to cause his symptoms. He had a mild CHAGO which improved with mild IV fluid hydration. Patient was feeling better close to normal self, afebrile without leukocytosis, confusion improved, tolerating diet without issues and was deemed stable for discharge to inpatient rehab. During his hospitalization, patient reported some mild maroon stool, mostly on tissue. Hemogloblin remained stable and he reported improvement. Dr. Leyva discussed with family/patient, given his history of a-fib and high risk for CVA, recommended to continue on eliquis, but to hold the plavix for now. Per report, was started on plavix after stroke. Patient reported having a colonoscopy ~1 year ago and was told it was normal. recommend to monitor stools and repeat CBC in a day, and as needed after that. Medications: Stop Plavix lamictal decreased to 200 mg twice daily - per patient/family request to go back to original dose Follow up: PCP 3-5 days after dischare from rehab Neuro in 2-4 weeks Please call to schedule / confirm appointment Physical Exam: GEN: Alert, oriented, NAD HEENT: Normal conjunctiva, sclera anicteric CV: Regular rate and rhythm, no edema Pulm: Nonlabored respirations on room air, clear bilaterally ABD: soft, nontender, nondistended Neuro: Normal speech, normal affect, mild left sided weakness (~baseline) Vital Signs/Physical Exam: Temp Pulse Resp BP Pulse Ox 97.6 F 83 16 138/69 98 10/23/23 08:00 10/23/23 08:00 10/23/23 08:00 10/23/23 08:00 10/23/23 08:00 Laboratory Data at Discharge: WBC 4.00 thou/uL (4.3-10.9) L 10/23/23 06:40 Hgb 10.0 g/dL (13.6-17.9) L D 10/23/23 06:50 Hct 30.0 % (39.6-49.0) L 10/23/23 06:50 Plt Count 64 thou/uL (152-406) L D 10/23/23 06:40 Sodium 140 mEq/L (136-145) 10/23/23 06:40 Potassium 4.0 mEq/L (3.5-5.1) 10/23/23 06:40 BUN 9 mg/dL (7-18) 10/23/23 06:40 Creatinine 1.39 mg/dL (0.70-1.30) H 10/23/23 06:40 Glucose 116 mg/dL (74-106) H 10/23/23 06:40 Phosphorus 3.3 mg/dL (2.5-4.9) 10/23/23 06:40 Magnesium 2.1 mg/dL (1.6-2.4) 10/23/23 06:40 Total Bilirubin 0.5 mg/dL (0.2-1.0) 10/23/23 06:40 AST 43 U/L (15-37) H 10/23/23 06:40 ALT 73 U/L (16-61) H 10/23/23 06:40 Alkaline Phosphatase 95 U/L (45-117) 10/23/23 06:40 Home Medications: Amiodarone HCl [Pacerone] 200 mg PO BID 10/10/23 Pantoprazole [Protonix Tab*] 40 mg PO DAILY 10/10/23 Sertraline [Zoloft*] 100 mg PO DAILY 10/10/23 Tamsulosin [Flomax*] 0.4 mg PO DAILY 10/10/23 Apixaban [Eliquis] 5 mg PO BID 10/15/23 Metoclopramide [Reglan*] 10 mg PO ACHS tab 10/15/23 Spironolactone [Aldactone] 25 mg PO BID 30 Days #60 tab 10/15/23 Acetaminophen [Tylenol] 650 mg PO Q4HP PRN 10/19/23 Atorvastatin Calcium [Lipitor] 40 mg PO BEDTIME 10/19/23 Bisacodyl [Dulcolax*] 1 supp [place] DAILYPRN PRN 10/19/23 Melatonin [Melatonin*] 3 mg PO BEDTIME PRN PRN 10/19/23 Ondansetron [Zofran (Odt)*] 4 mg PO Q6HP PRN 10/19/23 lamoTRIgine [Lamictal*] 200 mg PO BID tab 10/23/23 Physician Discharge Instructions: Physician discharge instructions: Patient presented with altered mentation, confusion from rehab. He was recently hospitalized 10/09-10/14 for syncope after inappropriate vagal stimulation from his gastroparesis / vomiting. At that time there was concern for possible seizure activity and Neurology increased his lamictal dose. The cause of this episode of confusion remains a bit unclear. It resolved and patient was maintained on his usual home medications with exception of lowering his lamictal dose to the previous 200mg BID instead of 300mg. Highest suspicion for possible vascular dementia given his symptoms and medical history, possibly a component of increasing the lamictal dose. CT head was without any new/acute findings. Labwork was rather unremarkable - no leukocytosis, no significant electrolyte derangements to cause his symptoms. He had a mild CHAGO which improved with mild IV fluid hydration. Patient was feeling better close to normal self, afebrile without leukocytosis, confusion improved, tolerating diet without issues and was deemed stable for discharge to inpatient rehab. During his hospitalization, patient reported some mild maroon stool, mostly on tissue. Hemogloblin remained stable and he reported improvement. Dr. Leyva discussed with family/patient, given his history of a-fib and high risk for CVA, recommended to continue on eliquis, but to hold the plavix for now. Per report, was started on plavix after stroke. Patient reported having a colonoscopy ~1 year ago and was told it was normal. recommend to monitor stools and repeat CBC in a day, and as needed after that. Medications: Stop Plavix lamictal decreased to 200 mg twice daily - per patient/family request to go back to original dose Follow up: PCP 3-5 days after dischare from rehab Neuro in 2-4 weeks Please call to schedule / confirm appointment Followup: Roberto Hernandez MD [ASSOCIATE-ACTIVE - CAN ADMIT] - 1-2 Weeks NONE,NONE [Primary Care Provider] - Time spent managing pt's care (in minutes): 45
[2023-10-23 16:48] VITALS: BP 119/65; TEMP 98.1
== END 2023-10-23 17:54 | DRG 71 ==
LOC: ER 18:10 → 2ND 22:31
PROVIDERS: ADMIT Family Medicine; ATTEND Hospitalist
DX: G93.41 Metabolic encephalopathy (principal); F01.511 Vascular dementia, unspecified severity, with agitation; I69.354 Hemiplegia and hemiparesis following cerebral infarction affecting left non-dominant side; F01.52 Vascular dementia, unspecified severity, with psychotic disturbance; F05 Delirium due to known physiological condition; I48.20 Chronic atrial fibrillation, unspecified; N17.9 Acute kidney failure, unspecified; E11.9 Type 2 diabetes mellitus without complications; I10 Essential (primary) hypertension; E86.0 Dehydration; D63.8 Anemia in other chronic diseases classified elsewhere; E78.5 Hyperlipidemia, unspecified; G40.909 Epilepsy, unspecified, not intractable, without status epilepticus; I25.10 Atherosclerotic heart disease of native coronary artery without angina pectoris; I69.391 Dysphagia following cerebral infarction; R13.12 Dysphagia, oropharyngeal phase; Z95.5 Presence of coronary angioplasty implant and graft; Z79.01 Long term (current) use of anticoagulants; Z86.711 Personal history of pulmonary embolism; Z79.02 Long term (current) use of antithrombotics/antiplatelets; Z79.899 Other long term (current) drug therapy
CPT/HCPCS: 36415; 70450; 71045; 80048; 80053; 80076; 81001; 81003; 82947; 83735; 84100; 84132; 84484; 85014; 85018; 85025; 92523; 92610; 93005; 94760; 97116; 97161; 97530; 99285; J2405; J7799

== ENCOUNTER 2024-05-27 18:47 | Observation (INO) | payer BC ==
--- NOTE | 2024-05-27 20:30 | RAD REPORT ---
EXAM: Chest Single View HISTORY: fall COMPARISON: None. FINDINGS: LUNGS/PLEURA: The lungs are clear. No pleural effusions or pneumothorax. No pulmonary edema. MEDIASTINUM: The mediastinal silhouette is within normal limits. CARDIAC: The cardiac silhouette is within normal limits. UPPER ABDOMEN: Gas in the right upper quadrant overlying the liver is probably within the colon. This is not the expected configuration of free air. BONES: No acute abnormality. LINES/TUBES/OTHER: N/A IMPRESSION: No evidence of acute cardiopulmonary disease.
[2024-05-27 20:43] LABS: Absolute Lymphocytes (CBC) 1.1 K/uL (0.7-4.9); Absolute Monocytes 0.7 K/uL (0.1-1.3); Absolute Neutrophil 5.4 K/uL (1.8-8.0); Basophils % 0.6 % (0-1.3); Eosinophils % 0.1 % (0-4.4); Hematocrit 34.5 % (39.6-49.0); Lymphocytes % 15.7 % (15.3-44.8); MCH 32.1 pg (27.0-35.0); MCHC 34.8 g/dL (32.0-36.0); MCV 92.1 fL (80-100); MPV 9.2 fL (7.6-11.3); Monocytes % 9.3 % (3.3-12.3); Neutrophils % 74.3 % (41.7-73.7); Nucleated Red Blood Cells % 0.1 % (0-0); Platelets 167 thou/uL (152-406); RBC Red Blood Cell Count 3.75 M/uL (4.33-5.43); Red Cell Distribution Width 13.4 % (12.1-15.2)
[2024-05-27 20:59] LABS: Albumin 3.8 g/dL (3.4-5.0); Albumin/Globulin Ratio 0.9 (1.1-1.8); Anion Gap 9.8 mEq/L (5.0-15.0); Bilirubin Total 0.4 mg/dL (0.2-1.0); Globulin 4.4 g/dL (2.3-3.5); Potassium 4.8 mEq/L (3.5-5.1); Protein, Total 8.2 g/dL (6.4-8.2)
--- NOTE | 2024-05-27 21:05 | RAD REPORT ---
EXAMINATION: CT HEAD WITHOUT CONTRAST CT CERVICAL SPINE WITHOUT CONTRAST CLINICAL INDICATION: Male, 64 years old. fall TECHNIQUE: Axial CT images from the skull base to the vertex without intravenous contrast. Axial CT i mages through the cervical spine were obtained without intravenous contrast. Sagittal and coronal reformatted images were created from the data set. Coronal and sagittal reformatted images were creat ed from the data set. One or more of the following dose reduction techniques were used: Automated exposure control, adjustment of the mA and/or kV according to patient size, and/or iterative reconstr uction. Unless otherwise specified, incidental findings do not require dedicated imaging follow-up. [id number]. COMPARISON: 10/07/2023, 10/18/2023 FINDINGS: Head: INTRACRANIAL: No acute intracranial hemorrhage. No hydrocephalus. No mass effect or midline shift. Mo derate chronic small vessel ischemic changes.Age advanced cerebral atrophy. Remote right frontal lobe infarct. Dural calcifications present. Remote right clarke radiata lacunar infarct. Remote left cerebellar infarct. VASCULATURE: No visualized abnormalities in the arteries or dural venous sinuses. SCALP/SKULL: No significant soft tissue or osseous abnormalities. SINUSES: The visualized paranasal sinuses and mastoid air cells are predominantly clear. Cervical spine: ALIGNMENT: The cervical spine has normal alignment without scoliosis or spondylolisthesis. BONE: Vertebral body heights are maintained. No aggressive osseous lesions. DEGENERATIVE CHANGES: Moderate disc height loss at C3-4 . Moderate right neural foraminal narrowing a t C3-4. Mild to moderate neural foraminal narrowing on the left at C3-4. SOFT TISSUE: No significant abnormalities in the soft tissue of the neck. The visualized lung apices are clear. IMPRESSION: No acute intracranial abnormality. No acute fracture or traumatic malalignment of the cervical spine.
[2024-05-27 21:20] LABS: Specific Gravity 1.018 (1.005-1.030); Urine Bilirubin NEGATIVE (Negative); Urine Blood Negative (Negative); Urine Clarity Clear (Clear); Urine Color Light-Yellow (Yellow); Urine Glucose NEGATIVE (Negative); Urine Ketones NEGATIVE (Negative); Urine Microscopic Reflex YN NO UMIC; Urine Nitrite NEGATIVE (Negative); Urine Protein NEGATIVE (Negative); Urine Urobilinogen Normal (Normal); Urine pH 5.5 (5.0-7.0)
--- NOTE | 2024-05-27 22:59 | EDPHYS ---
Physician Documentation [facility] Name: Monty Faulkner Age: 64 yrs Sex: Male : 1960 Arrival Date: 05/27/2024 Time: 18:47 Bed 15 Private MD: ED Physician Damien Hogan HPI: 05/27 20:13 This 64 yrs old Black Male presents to ER via Wheelchair with complaints of Confusion, ms3 Fall Injury. 20:13 Monty Faulkner is a 64-year-old male presenting to the emergency department with ms3 confusion and frequent falls. His symptoms began on Sunday when he started drooling and experienced a fall. Last night, he was observed standing in the kitchen appearing lost and shaking all over. He then took a nap and seemed to improve. However, this morning, under the care of his sister who is his caregiver, he fell again and hit his back. His history of frequent falls and confusion prompted his family to bring him in, especially since he is on blood thinners. He does not recall the falls. His medical history is significant for stage three kidney failure, heart trouble, gastroparesis, five previous strokes, a pulmonary vein ablation, a heart stent, hypertension, diabetes, and high cholesterol.. Historical: - Allergies: 19:49 No Known Allergies; me1 - PMHx: 19:49 Atrial fibrillation; Congestive heart failure; CVA; Diabetes - NIDDM; Hypertension; me1 Pulmonary Embolism; Seizures; TIA; - PSHx: 19:49 cardiac stent; me1 - Immunization history:: Adult Immunizations up to date. - Infectious Disease History:: Denies. - Immunization history: Last tetanus immunization: unknown. - Social history:: Smoking status: Patient denies any tobacco usage or history of. ROS: 20:13 Constitutional: Negative for fever, and chills. Cardiovascular: Negative for chest ms3 pain, and palpitations. Respiratory: Negative for shortness of breath, cough, wheezing, and pleuritic chest pain, Abdomen/GI: Negative for abdominal pain, nausea, vomiting, diarrhea, and constipation, 20:13 MS/extremity: Positive for generalized weakness, Exam: 20:13 Constitutional: This is a well developed, well nourished patient who is awake, alert, ms3 and in no acute distress. Cardiovascular: Regular rate and rhythm with a normal S1 and S2. No gallops, murmurs, or rubs. Normal PMI, no JVD. No pulse deficits. Respiratory: Lungs have equal breath sounds bilaterally, clear to auscultation and percussion. No rales, rhonchi or wheezes noted. No increased work of breathing, no retractions or nasal flaring. Abdomen/GI: Soft, non-tender, with normal bowel sounds. No distension or tympany. No guarding or rebound. No evidence of tenderness throughout. Skin: Warm, dry with normal turgor. Normal color with no rashes, no lesions, and no evidence of cellulitis. 05/28 21:24 ECG was reviewed by the Attending Physician. EKG at 2316 sinus rhythm first-degree sp4 AV block, left bundle branch block. Rate 73. 21:27 Constitutional: This is a well developed, well nourished patient who is awake, alert, sp4 and in no acute distress. Head/Face: Normocephalic, atraumatic. Eyes: Pupils equal round and reactive to light, extra-ocular motions intact. Lids and lashes normal. Conjunctiva and sclera are not injected. Cornea within normal limits. Periorbital areas with no swelling, redness, or edema. ENT: Nares patent. No nasal discharge, no septal abnormalities noted. Tympanic membranes are normal and external auditory canals are clear. Oropharynx with no redness, swelling, or masses, exudates, or evidence of obstruction, uvula midline. Mucous membranes moist. Neck: Trachea midline, no thyromegaly or masses palpated, and no cervical lymphadenopathy. Supple, full range of motion without nuchal rigidity, or vertebral point tenderness. Chest/axilla: Normal chest wall appearance and motion. Nontender with no deformity. No lesions are appreciated. Cardiovascular: Regular rate and rhythm with a normal S1 and S2. No gallops, murmurs, or rubs. Normal PMI, no JVD. No pulse deficits. Respiratory: Lungs have equal breath sounds bilaterally, clear to auscultation and percussion. No rales, rhonchi or wheezes noted. No increased work of breathing, no retractions or nasal flaring. Abdomen/GI: Soft, with normal bowel sounds. No distension or tympany. No guarding or rebound. No evidence of tenderness throughout. Back: No spinal tenderness. No costovertebral tenderness. Skin: Warm, dry with normal turgor. Normal color with no rashes, no lesions, and no evidence of cellulitis. MS/ Extremity: Pulses equal, no cyanosis. Neurovascular intact. Full, normal range of motion. Neuro: Awake and alert, GCS 15, oriented to person, place, time, and situation. Cranial nerves II-XII grossly intact. Motor strength 5/5 in all extremities. Sensory grossly intact. Psych: Awake, alert, with orientation to person, place and time. Behavior, mood, and affect are within normal limits Vital Signs: 05/27 19:48 BP 141 / 81; Pulse 82; Resp 17; Temp 98.4; Pulse Ox 96% ; Weight 111.13 kg; Height 6 me1 ft. 1 in. ; Pain 8/10; 20:30 BP 138 / 76; Pulse 83; Resp 18; Pulse Ox 99% on R/A; Pain 5/10; rg5 21:42 BP 141 / 80; Pulse 75; Resp 17; Pulse Ox 95% on R/A; rg5 22:40 BP 126 / 78; Pulse 74; Resp 18; Pulse Ox 98% on R/A; rg5 19:48 Body Mass Index 32.32 (111.13 kg, 185.42 cm) me1 19:48 Pain Scale: Adult me1 20:30 Pain Scale: Adult rg5 NIH Stroke Scale Scores: 05/28 21:27 NIHSS Score: 0 sp4 Katie Coma Score: 05/27 20:30 Eye Response: spontaneous(4). Motor Response: obeys commands(6). Verbal Response: rg5 oriented(5). Total: 15. 05/28 21:27 Eye Response: spontaneous(4). Motor Response: obeys commands(6). Verbal Response: sp4 oriented(5). Total: 15. Trauma Score (Adult): 05/27 20:30 Eye Response: spontaneous(1); Verbal Response: oriented(1); Motor Response: obeys rg5 commands(2); Systolic BP: > 89 mm Hg(4); Respiratory Rate: 10 to 29 per min(4); Katie Score: 15; Trauma Score: 12 MDM: 19:51 Medical Screening Exam initiated ms3 20:13 Differential diagnosis: closed head injury, contusion, fracture, sprain, strain. ms3 22:59 ED course: EXAM: Chest Single View HISTORY: fall COMPARISON: None. FINDINGS: sp4 LUNGS/PLEURA: The lungs are clear. No pleural effusions or pneumothorax. No pulmonary edema. MEDIASTINUM: The mediastinal silhouette is within normal limits. CARDIAC: The cardiac silhouette is within normal limits. UPPER ABDOMEN: Gas in the right upper quadrant overlying the liver is probably within the colon. This is not the expected configuration of free air. BONES: No acute abnormality. LINES/TUBES/OTHER: N/A IMPRESSION: No evidence of acute cardiopulmonary disease. . ED course: EXAMINATION: CT HEAD WITHOUT CONTRAST CT CERVICAL SPINE WITHOUT CONTRAST CLINICAL INDICATION: Male, 64 years old. fall TECHNIQUE: Axial CT images from the skull base to the vertex without intravenous contrast. Axial CT images through the cervical spine were obtained without intravenous contrast. Sagittal and coronal reformatted images were created from the data set. Coronal and sagittal reformatted images were created from the data set. One or more of the following dose reduction techniques were used: Automated exposure control, adjustment of the mA and/or kV according to patient size, and/or iterative reconstruction. Unless otherwise specified, incidental findings do not require dedicated imaging follow-up. [id number]. COMPARISON: 10/07/2023, 10/18/2023 FINDINGS: Head: INTRACRANIAL: No acute intracranial hemorrhage. No hydrocephalus. No mass effect or midline shift. Moderate chronic small vessel ischemic changes.Age advanced cerebral atrophy. Remote right frontal lobe infarct. Dural calcifications present. Remote right clarke radiata lacunar infarct. Remote left cerebellar infarct. VASCULATURE: No visualized abnormalities in the arteries or dural venous sinuses. SCALP/SKULL: No significant soft tissue or osseous abnormalities. SINUSES: The visualized paranasal sinuses and mastoid air cells are predominantly clear. Cervical spine: ALIGNMENT: The cervical spine has normal alignment without scoliosis or spondylolisthesis. BONE: Vertebral body heights are maintained. No aggressive osseous lesions. DEGENERATIVE CHANGES: Moderate disc height loss at C3-4 . Moderate right neural foraminal narrowing at C3-4. Mild to moderate neural foraminal narrowing on the left at C3-4. SOFT TISSUE: No significant abnormalities in the soft tissue of the neck. The visualized lung apices are clear. IMPRESSION: No acute intracranial abnormality. No acute fracture or traumatic malalignment of the cervical spine. . 23:01 Data reviewed: vital signs, nurses notes, old medical records, lab test result(s), sp4 radiologic studies, CT scan, plain films. Consideration of Admission/Observation Escalation of care including admission/observation considered. ED course: Patient was discussed with neurologist Dr. Hernandez who accepted patient to see in consult in the morning.. 05/27 19:45 Order name: CBC with Diff; Complete Time: 22:36 ms3 05/27 19:45 Order name: Urinalysis w/ reflexes; Complete Time: 22:36 ms3 05/27 20:34 Order name: CMP; Complete Time: 22:36 ms3 05/27 22:54 Order name: Troponin High Sensitivity; Complete Time: 21:28 sp4 05/27 22:54 Order name: BNP; Complete Time: 21:28 sp4 05/27 22:54 Order name: CRP; Complete Time: 21:28 sp4 05/27 22:54 Order name: TSH; Complete Time: 21:28 sp4 05/27 22:54 Order name: T4 Free; Complete Time: 21:28 sp4 05/28 00:57 Order name: Urinalysis w/ reflexes EDMS 05/28 00:57 Order name: CBC with Automated Diff EDMS 05/28 00:57 Order name: CBC with Automated Diff EDMS 05/28 00:57 Order name: Comprehensive Metabolic Panel EDMS 05/28 00:57 Order name: Comprehensive Metabolic Panel EDMS 05/28 00:57 Order name: Lipid Profile EDMS 05/28 00:57 Order name: Lipid Profile EDMS 05/28 06:00 Order name: CBC with Automated Diff; Complete Time: 21:28 EDMS 05/28 07:05 Order name: Comprehensive Metabolic Panel; Complete Time: 21:28 EDMS 05/28 07:05 Order name: Lipid Profile; Complete Time: 21:28 EDMS 05/28 08:00 Order name: Hemoglobin A1c; Complete Time: 21:28 EDMS 05/28 08:09 Order name: Glucose, Ancillary Testing; Complete Time: 21:28 EDMS 05/28 12:08 Order name: Glucose, Ancillary Testing; Complete Time: 21:28 EDMS 05/27 19:45 Order name: CT Head C Spine; Complete Time: 22:36 ms3 05/27 19:45 Order name: XRAY Chest (1 view); Complete Time: 20:33 ms3 05/27 22:54 Order name: Wrist Left (3 View) XRAY; Complete Time: 21:28 sp4 05/28 00:57 Order name: Echo with Doppler EDMS 05/28 00:57 Order name: Stroke Protocol EDCT 05/28 11:32 Order name: MRI; Complete Time: 21:28 EDMS 05/27 22:54 Order name: EKG; Complete Time: 22:54 sp4 05/28 00:57 Order name: IRF Screen EDMS 05/28 00:57 Order name: Physical Therapy Consult EDMS 05/28 00:57 Order name: Speech Therapy Consult EDMS 05/27 19:45 Order name: Labs collected and sent; Complete Time: 20:37 ms3 05/27 20:36 Order name: Saline Lock; Complete Time: 20:37 sp4 EC:16 Rate is 73 beats/min. Rhythm is regular, Sinus Rhythm. QRS [place] is Normal. SC interval sp4 is prolonged. QRS interval is prolonged. No ST changes noted. Clinical impression: No evidence of ischemia. Interpreted by me. Reviewed by me. Administered Medications: 23:04 Drug: Diazepam PO 5 mg PO once Route: PO; rg5 23:13 Follow up: Response: No adverse reaction rg5 23:22 Drug: NS 0.9% IV 1000 ml IV at 125 ml/hr Per protocol; to be given as a bolus over 60 rg5 minutes Route: IV; Rate: 125 ml/hr; Site: right antecubital; Disposition Summary: 05/27/24 22:58 Hospitalization Ordered Notes: Hospitalization Status: Inpatient Admission sp4 Provider: Razia Small sp4 Condition: Stable sp4 Problem: new sp4 Symptoms: have improved sp4 Bed/Room Type: Standard sp4 Location: [facility] ER HOLD(05/27/24 23:00) oe Room Assignment: ERHOLD-(05/27/24 23:00) oe Diagnosis - Acute fall at home, posterior head injury, acute left wrist sprain, acute balance sp4 and coordination disorder, history of CVA, generalized weakness Forms: - Medication Reconciliation Form sp4 - SBAR form sp4 - Leadership Thank You Letter sp4 NIH Stroke Scale - NIH Stroke Score Date: 05/28/2024 Time: 21:27 Total Score = 0 10. Dysarthria (speech clarity - read or repeat words) - 0(Normal) 11. Extinction and Inattention (visual/tactile/auditory/spatial/personal) - 0(No abnormality) 1a. Level of Consciousness (LOC) - 0(Alert) 1b. Level of Consciousness (LOC) (Month \T\ Age) - 0(Both) 1c. LOC Commands (Open \T\ Closes Eyes/Broadcast Systems Engineer) - 0(Both) 2. Best Gaze (Lateral Gaze Paresis) - 0(Normal) 3. Visual Field Loss - 0(No visual loss) 4. Facial Palsy - 0(Normal) 5a. Left Arm: Motor (10-second hold) - 0(No drift) 5b. Right Arm: Motor (10-second hold) - 0(No drift) 6a. Left Leg: Motor (5-second hold - always test supine) - 0(No drift) 6b. Right Leg: Motor (5-second hold - always test supine) - 0(No drift) 7. Limb Ataxia (finger/nose \T\ heel/brady - test with eyes open) - 0(Absent) 8. Sensory Loss (pinprick arms/legs/face) - 0(Normal) 9. Best Language: Aphasia (description/naming/reading) - 0(No aphasia) Initials: sp4 Signatures: Dispatcher [employer] EDMS Uli Cabrera oe Geraldo Villanueva DO DO ms3 Damien Hogan MD MD sp4 Amber Khan RN RN me1 Malik Boswell RN RN rg5 Corrections: (The following items were deleted from the chart) 23:00 22:58 Telemetry/MedSurg (Inpatient) sp4 oe 23:00 22:58 sp4 oe
--- NOTE | 2024-05-27 22:59 | ER ---
Nurse's Notes [facility] Name: Monty Faulkner Age: 64 yrs Sex: Male : 1960 Arrival Date: 05/27/2024 Time: 18:47 Bed 15 Private MD: Diagnosis: Acute fall at home, posterior head injury, acute left wrist sprain, acute balance and coordination disorder, history of CVA, generalized weakness Presentation: 05/27 19:48 Chief complaint: Patient states: s/p fall Sunday and today. c/o mid back pain 11/30. me1 Coronavirus screen: Vaccine status: Patient reports receiving the 2nd dose of the covid vaccine. Ebola Screen: No symptoms or risks identified at this time. Initial Sepsis Screen: Does the patient meet any 2 criteria? No. Patient's initial sepsis screen is negative. Does the patient have a suspected source of infection? No. Patient's initial sepsis screen is negative. Risk Assessment: Do you want to hurt yourself or someone else? Patient reports no desire to harm self or others. Onset of symptoms was May 27, 2024. 19:48 Method Of Arrival: Wheelchair me1 19:48 Acuity: YAYA 4 me1 20:36 Care prior to arrival: None. Mechanism of Injury: Fall from standing position. Trauma rg5 event details: Injury occurred in the [facility]. Activity prior to arrival:. Trauma Activation: Not Applicable Physician: ED Physician; Name: ; Notified At: ; Arrived At: Physician: General Surgeon; Name: ; Notified At: ; Arrived At: Physician: Radiology; Name: ; Notified At: ; Arrived At: Physician: Respiratory; Name: ; Notified At: ; Arrived At: Physician: Lab; Name: ; Notified At: ; Arrived At: Historical: - Allergies: 19:49 No Known Allergies; me1 - PMHx: 19:49 Atrial fibrillation; Congestive heart failure; CVA; Diabetes - NIDDM; Hypertension; me1 Pulmonary Embolism; Seizures; TIA; - PSHx: 19:49 cardiac stent; me1 - Immunization history:: Adult Immunizations up to date. - Infectious Disease History:: Denies. - Immunization history: Last tetanus immunization: unknown. - Social history:: Smoking status: Patient denies any tobacco usage or history of. Screenin:30 Abuse screen: Denies threats or abuse. Tuberculosis screening: No symptoms or risk rg5 factors identified. 20:32 [facility] ED Fall Risk Assessment (Adult) History of falling in the last 3 months, rg5 including since admission Yes- single mechanical fall (1 pt) Confusion or Disorientation No (0 pts) Intoxicated or Sedated No (0 pts) Impaired Gait Yes (1 pt) Mobility Assist Device Used No (0 pt) Altered Elimination No (0 pt) Score/Fall Risk Level 3 or more points = High Risk Oriented to surroundings, Maintained a safe environment, Hourly rounding (assess needs \T\ fall precautionary measures) done, Used ambulatory aids as needed (educated on \T\ assisted with). Nutritional screening: No deficits noted. Primary Survey: 20:35 NO uncontrolled hemorrhage observed. Breathing/Chest: Spontaneous respiratory effort, rg5 equal unlabored respirations, breath sounds clear bilaterally, regular pattern, symmetrical chest rise and fall. Circulation: No external hemorrhage present. Regular and strong central pulse, skin warm/dry/normal color. Disability Client is alert. Exposure/Environment: All clothing and personal items were removed. Forensic evidence collection is not deemed to be indicated at this time. Items placed in patient belonging bag. 20:36 Reassessment Alertness and Airway: Awake and alert. The airway is patent. Breathing: rg5 Spontaneous respiratory effort, equal unlabored respirations, breath sounds clear bilaterally, regular pattern with symmetrical chest rise and fall. Circulation: No external hemorrhage noted. Regular and strong central pulse, skin warm/dry/normal color. Disability: Alert. Assessment: 20:32 General: Appears in no apparent distress. Behavior is calm, cooperative, appropriate rg5 for age. Pain: Complains of pain in back Pain currently is 5 out of 10 on a pain scale. Quality of pain is described as aching, Pain began 2 hours ago. Neuro: Level of Consciousness is awake, alert, obeys commands, Oriented to person, place, time. Cardiovascular: Denies chest pain. Respiratory: Airway is patent Trachea midline Respiratory effort is even, unlabored. GI: Abdomen is round Abd is soft and non tender. : No signs and/or symptoms were reported regarding the genitourinary system. EENT: No deficits noted. Derm: Skin is intact, Skin is dry, Skin is normal, Skin temperature is warm. Musculoskeletal: Circulation, motion, and sensation intact. Range of motion: intact in all extremities. 21:35 Reassessment: No changes from previously documented assessment. Patient and/or family rg5 updated on plan of care and expected duration. Pain level reassessed. Patient is alert, oriented x 3, equal unlabored respirations, skin warm/dry/pink. 22:40 Reassessment: No changes from previously documented assessment. Patient and/or family rg5 updated on plan of care and expected duration. Pain level reassessed. Patient is alert, oriented x 3, equal unlabored respirations, skin warm/dry/pink. Vital Signs: 19:48 BP 141 / 81; Pulse 82; Resp 17; Temp 98.4; Pulse Ox 96% ; Weight 111.13 kg; Height 6 me1 ft. 1 in. ; Pain 8/10; 20:30 BP 138 / 76; Pulse 83; Resp 18; Pulse Ox 99% on R/A; Pain 5/10; rg5 21:42 BP 141 / 80; Pulse 75; Resp 17; Pulse Ox 95% on R/A; rg5 22:40 BP 126 / 78; Pulse 74; Resp 18; Pulse Ox 98% on R/A; rg5 19:48 Body Mass Index 32.32 (111.13 kg, 185.42 cm) me1 19:48 Pain Scale: Adult me1 20:30 Pain Scale: Adult rg5 [place] Coma Score: 20:30 Eye Response: spontaneous(4). Motor Response: obeys commands(6). Verbal Response: rg5 oriented(5). Total: 15. 05/28 21:27 Eye Response: spontaneous(4). Motor Response: obeys commands(6). Verbal Response: sp4 oriented(5). Total: 15. Trauma Score (Adult): 05/27 20:30 Eye Response: spontaneous(1); Verbal Response: oriented(1); Motor Response: obeys rg5 commands(2); Systolic BP: > 89 mm Hg(4); Respiratory Rate: 10 to 29 per min(4); [place] Score: 15; Trauma Score: 12 NIH Stroke Scale Scores: 05/28 21:27 NIHSS Score: 0 sp4 ED Course: 05/27 18:50 Patient arrived in ED. mr 18:54 Geraldo Villanueva DO is Attending Physician. ms3 19:49 Triage completed. me1 19:49 Arm band placed on Patient placed in waiting room. me1 20:11 XRAY Chest (1 view) In Process Unspecified. EDMS 20:12 Malik Boswell, RN is Primary Nurse. rg5 20:30 Patient has correct armband on for positive identification. Placed in gown. Bed in low rg5 position. Call light in reach. Side rails up X2. Patient maintains SpO2 saturation greater than 95% on room air. 20:30 No provider procedures requiring assistance completed. Patient maintains SpO2 rg5 saturation greater than 95% on room air. 20:32 Inserted saline lock: 20 gauge in right antecubital area, using aseptic technique. rg5 Blood collected. Flushed with 10 mL NS. 20:36 Attending Physician role handed off by Geraldo Villanueva DO sp4 20:36 Damien Hogan MD is Attending Physician. sp4 20:55 CT Head C Spine In Process Unspecified. EDMS 22:03 Thermoregulation: warm blanket given to patient. rg5 22:57 Razia Small MD is Hospitalizing Provider. sp4 23:08 Wrist Left (3 View) XRAY In Process Unspecified. EDMS 23:11 Provided Education on: needs for admit. rg5 23:11 Patient admitted, IV remains in place. intact, No redness/swelling at site. rg5 05/28 01:41 Urinalysis w/ reflexes Sent. rg5 Administered Medications: 05/27 23:04 Drug: Diazepam PO 5 mg PO once Route: PO; rg5 23:13 Follow up: Response: No adverse reaction rg5 23:22 Drug: NS 0.9% IV 1000 ml IV at 125 ml/hr Per protocol; to be given as a bolus over 60 rg5 minutes Route: IV; Rate: 125 ml/hr; Site: right antecubital; Medication: 20:32 VIS not applicable for this client. rg5 Intake: 20:30 PO: 0ml; Total: 0ml. rg5 Outcome: 22:03 Patient's length of stay was not longer than 2 hours. rg5 22:58 Decision to Hospitalize by Provider. sp4 23:10 Admitted to ER Hold. Please see [facility] for further documentation. rg5 23:10 Condition: stable 23:10 Instructed on the need for admit, 05/28 13:39 Patient left the ED. bm7 NIH Stroke Scale - NIH Stroke Score Date: 05/28/2024 Time: 21:27 Total Score = 0 10. Dysarthria (speech clarity - read or repeat words) - 0(Normal) 11. Extinction and Inattention (visual/tactile/auditory/spatial/personal) - 0(No abnormality) 1a. Level of Consciousness (LOC) - 0(Alert) 1b. Level of Consciousness (LOC) (Month \T\ Age) - 0(Both) 1c. LOC Commands (Open \T\ Closes Eyes/Bit Welder) - 0(Both) 2. Best Gaze (Lateral Gaze Paresis) - 0(Normal) 3. Visual Field Loss - 0(No visual loss) 4. Facial Palsy - 0(Normal) 5a. Left Arm: Motor (10-second hold) - 0(No drift) 5b. Right Arm: Motor (10-second hold) - 0(No drift) 6a. Left Leg: Motor (5-second hold - always test supine) - 0(No drift) 6b. Right Leg: Motor (5-second hold - always test supine) - 0(No drift) 7. Limb Ataxia (finger/nose \T\ heel/brady - test with eyes open) - 0(Absent) 8. Sensory Loss (pinprick arms/legs/face) - 0(Normal) 9. Best Language: Aphasia (description/naming/reading) - 0(No aphasia) Initials: sp4 Signatures: Dispatcher [employer] EDMS Venkata, Xochitl, Reg Reg mr Geraldo Villanueva, DO DO ms3 Marlyn Welch, RN RN bm7 Damien Hogan MD MD sp4 Amber Khan RN RN me1 Malik Boswell, ELAINE RN rg5
[2024-05-27] MEDS ORDERED: DIAZEPAM 5 MG TABLET ONE (23:00)
[2024-05-27] MEDS ORDERED: NA CHLORIDE 0.9% 1,000 ML ONE (23:10)
[2024-05-28 00:04] LABS: C-Reactive Protein 4.1 mg/L (<3.00); Thyroid Stimulating Hormone 1.3 uIU/mL (0.358-3.740); Troponin High Sensitivity 8.2 pg/mL (<58.9)
--- NOTE | 2024-05-28 00:38 | P.HP ---
Certification for Inpatient Patient admitted to: Inpatient With expected LOS: >2 Midnights Practitioner: I am a practitioner with admitting privileges, knowledge of patient current condition, hospital course, and medical plan of care. Services: Services provided to patient in accordance with Admission requirements found in Title 42 Section 412.3 of the Code of Federal Regulations Patient History Date of Service: 05/28/24 Reason for admission: confusion falls History of Present Illness: 64-year-old male presents to the ER with complaints of confusion and frequent falls. Reports he had an episode of weakness and fall on Sunday and then again today. The patient reports a previous history of heart failure, CVA diabetes and hypertension. He does follow with neurology. He also reported previous strokes times five. CT of the head showed remote right frontal lobe infarct as well as remote right clarke radiata lacunar infarct. remote Left cerebellar infarct. neurology was called in the ED and recommended admission, brain MRI Allergies No Known Allergies Allergy (Verified 10/23/23 18:08) Home Medications: Acetaminophen [Tylenol] 650 mg PO Q4H PRN 10/23/23 Amiodarone HCl [Cordarone*] 200 mg PO BID 10/23/23 Apixaban [Eliquis] 5 mg PO BID 10/23/23 Atorvastatin Calcium [Lipitor] 40 mg PO BEDTIME 10/23/23 Bisacodyl [Dulcolax*] 10 mg RC DAILY PRN 10/23/23 Melatonin [Melatonin*] 3 mg PO BEDTIME PRN 10/23/23 Ondansetron [Zofran (Odt)*] 4 g PO Q6H PRN 10/23/23 Pantoprazole [Protonix Tab*] 40 mg PO DAILY 10/23/23 Sertraline [Zoloft*] 100 mg PO DAILY 10/23/23 Spironolactone [Aldactone*] 25 mg PO BID 10/23/23 Tamsulosin [Flomax*] 1 cap PO DAILY 10/23/23 lamoTRIgine [Lamictal*] 200 mg PO BID 10/23/23 Metoclopramide [Reglan] 10 mg PO TID #90 tab 11/03/23 - Past Medical/Surgical History Diabetic: Yes -: DM2 -: Epilepsy -: pulmonary embolism -: CVA -: CAD -: Hypertension -: A-fib on anticoagulation -: cyst removal Left lower forearm -: Cardiac cath with 1 stent Psychosocial/ Personal History: Patient is , lives at home with his - Family History Father -: Heart disease Mother -: Diabetes - Social History Alcohol use: Yes CD- Drugs: No Caffeine use: No Review of Systems 10-point ROS is otherwise unremarkable General: Weakness Neurological: Weakness, Confusion Physical Examination - Physical Exam General: Alert, In no apparent distress, Oriented x3 HEENT: Atraumatic, Normocephalic Respiratory: Clear to auscultation bilaterally, Normal air movement Cardiovascular: Regular rate/rhythm, Normal S1 S2 Gastrointestinal: Normal bowel sounds, Soft and benign Musculoskeletal: No clubbing, No swelling Integumentary: No rashes Neurological: Normal speech, Normal strength at 5/5 x4 extr, Sensation intact, Cranial nerves 3-12 intact - Studies Laboratory Data (last 24 hrs) 05/27/24 05/27/24 20:30 20:30 WBC 7.20 Hgb 12.0 L Hct 34.5 L Plt Count 167 Sodium 137 Potassium 4.8 BUN 33 H Creatinine 2.09 H Glucose 116 H Total Bilirubin 0.4 AST 65 H ALT 128 H Alkaline Phosphatase 88 Assessment and Plan - Problems (Diagnosis) (1) Atrial fibrillation Current Visit: Yes Status: Acute (2) Diabetes Current Visit: Yes Status: Acute (3) Falls Current Visit: Yes Status: Acute (4) History of stroke Current Visit: No Status: Acute (5) Chronic kidney disease Current Visit: No Status: Chronic (6) Coronary artery disease Current Visit: No Status: Chronic Qualifiers: - Plan 64-year-old male with multiple medical problems including previous stroke presents with confusion and weakness Confusion Weakness Falls History of CVA -- Will admit ddx TIA versus stroke. Neurology called in the ER. Check MRI brain, echocardiogram, FLP, A1c will consult physical therapy occupational therapy Coronary disease Hypertension Atrial fibrillation -- Patient currently rate controlled, restart home medications once reconciliation done -- Plan to continue Eliquis. Aspirin Diabetes --fsbs, ssi - Advance Directives Does patient have a Living Will: No Does patient have a Durable POA for Healthcare: Yes
[2024-05-28] MEDS ORDERED: D10W 125 ML IV PRN (00:47)
[2024-05-28] MEDS ORDERED: GLUCAGON 1 MG/VIAL IM PRN (00:47)
[2024-05-28] MEDS: NA CHLORIDE 0.9% 1,000 ML IV SCH (01:00)
[2024-05-28 01:43] VITALS: BMI 32.3
--- NOTE | 2024-05-28 05:53 | RAD REPORT ---
EXAM DESCRIPTION: Wrist Left 3 View CLINICAL HISTORY: 64 years Male, wrist injury COMPARISON: None. IMPRESSION: No fracture or dislocation. Widening of the scapholunate interval. Radiocarpal joint space narrowing. Dorsal wrist swelling. Vascular calcifications. Electronically signed by: Rolando Gómez DO 05/27/2024 11:59 PM REHANGER 9 Due to temporary technical issues with the PACS/[employer] reporting system, reports are being martín d by the in-house radiologist without review as a courtesy to ensure prompt reporting the interpreting radiologist is fully responsible for the content of the report. Transcribed Date/Time: 05/28/2024 5:53 AM
[2024-05-28 05:59] LABS: Absolute Basophils 0.1 K/uL (0-0.5); Absolute Lymphocytes (CBC) 2.1 K/uL (0.7-4.9); Absolute Monocytes 0.6 K/uL (0.1-1.3); Absolute Neutrophil 4.1 K/uL (1.8-8.0); Basophils % 0.9 % (0-1.3); Eosinophils % 0.6 % (0-4.4); Hematocrit 35.4 % (39.6-49.0); Lymphocytes % 30.7 % (15.3-44.8); MCH 31.8 pg (27.0-35.0); MCV 93.7 fL (80-100); MPV 9.3 fL (7.6-11.3); Monocytes % 9.2 % (3.3-12.3); Neutrophils % 58.6 % (41.7-73.7); Nucleated Red Blood Cells % 0.1 % (0-0); Platelets 161 thou/uL (152-406); RBC Red Blood Cell Count 3.77 M/uL (4.33-5.43)
[2024-05-28 06:56] LABS: Albumin 3.6 g/dL (3.4-5.0); Albumin/Globulin Ratio 0.8 (1.1-1.8); Anion Gap 6.1 mEq/L (5.0-15.0); Bilirubin Total 0.5 mg/dL (0.2-1.0); Globulin 4.4 g/dL (2.3-3.5); Potassium 4.1 mEq/L (3.5-5.1)
[2024-05-28] MEDS: INSULIN REGULAR (HUMAN) 100 UNIT/ML SQ SCH (07:30)
[2024-05-28] MEDS: ASPIRIN EC 81 MG TAB PO SCH (09:00)
[2024-05-28] MEDS ORDERED: ASPIRIN 81 MG CHEWABLE TABLET ONE (09:52)
[2024-05-28 10:20] VITALS: O2SAT 96
[2024-05-28 10:21] VITALS: BP 144/78; TEMP 98.4
--- NOTE | 2024-05-28 11:27 | EKG ---
Test Date: 2024-05-27 Test Time: 23:16:16 Statistical Methods Teacher: TERRY MEASUREMENT RESULTS: Intervals: Rate: 73 [place]: 210 QRSD: 176 QT: 482 QTc: 531 [place]: P: 80 [place]: 210 QRS: 4 T: 102 INTERPRETIVE STATEMENTS: Sinus rhythm with 1st degree AV block Left bundle branch block Abnormal ECG Compared to ECG 10/18/2023 19:17:56 First degree AV block now present Electronically Signed On 05-28-24 11:27:16 ALEMITE OPERATOR by James Alegria
--- NOTE | 2024-05-28 11:32 | RAD REPORT ---
EXAMINATION: MRI BRAIN WITHOUT CONTRAST CLINICAL INDICATION: cva TECHNIQUE: Multiplanar multisequence MR images of the brain were obtained without intravenous contras t. Unless otherwise specified, incidental findings do not require dedicated imaging follow-up. COMPARISON: 05/27/2024, 10/18/2023 CT head studies. 04/02/2023 MRI study FINDINGS: INTRACRANIAL: Diffusion-weighted images show no acute or early subacute infarction. There is moderate brain atrophy with moderateT2/FLAIR hyperintensities in the periventricular and deep white matter regions, likely representing chronic microvascular ischemic changes. There is no mass effect or midli ne shift. No abnormal extraaxial fluid collection. Areas of gliosis right frontal lobe as well as both cerebellar hemispheres and right anterior temporal lobe likely related to previous infarcts. VASCULATURE: Normal signal voids in the larger intracranial arteries and dural venous sinuses. SINUSES: The paranasal sinuses and mastoid air cells are predominantly clear. BONE: The marrow signal pattern is within normal limits. IMPRESSION: Negative for acutre CVA or other acute intracranial finding. Multiple areas of gliosis likely related to old infarcts.
[2024-05-28] MEDS ORDERED: ATORVASTATIN 20 MG TAB PO SCH (21:00)
== END 2024-05-28 13:25 | disposition home or self-care (01) ==
LOC: ER 18:47 → ERHOLD 05-28 00:47
PROVIDERS: ADMIT Internal Medicine; ATTEND Hospitalist
DX: R41.0 Disorientation, unspecified (principal); R53.1 Weakness; I48.11 Longstanding persistent atrial fibrillation; N18.9 Chronic kidney disease, unspecified; I25.10 Atherosclerotic heart disease of native coronary artery without angina pectoris; S09.90XA Unspecified injury of head, initial encounter; S63.502A Unspecified sprain of left wrist, initial encounter; W18.30XA Fall on same level, unspecified, initial encounter; Y93.9 Activity, unspecified; Y92.9 Unspecified place or not applicable; Z86.73 Personal history of transient ischemic attack (TIA), and cerebral infarction without residual deficits
CPT/HCPCS: 93005; 85025 ×2; 36415 ×2; 80061; 82947 ×2; 84443; 81003; 83036; 84484; 84439; 80053 ×2; 83880; 86140; 70450; 72125; 71045; 73110; 70551; 92523; J7030; G0378

== ENCOUNTER 2024-08-26 16:28 | Emergency (ER) | payer BC ==
[2024-08-26] MEDS ORDERED: ONDANSETRON 4 MG/2 ML VIAL ONE (17:34)
[2024-08-26 17:49] LABS: Absolute Lymphocytes (CBC) 1.1 K/uL (0.7-4.9); Absolute Monocytes 0.5 K/uL (0.1-1.3); Absolute Neutrophil 2.9 K/uL (1.8-8.0); Basophils % 0.9 % (0-1.3); Eosinophils % 0.9 % (0-4.4); Hematocrit 36.4 % (39.6-49.0); Hemoglobin 12.3 g/dL (13.6-17.9); Lymphocytes % 23.7 % (15.3-44.8); MCH 31.3 pg (27.0-35.0); MCHC 33.7 g/dL (32.0-36.0); MCV 92.7 fL (80-100); MPV 9.2 fL (7.6-11.3); Monocytes % 11.1 % (3.3-12.3); Neutrophils % 63.4 % (41.7-73.7); Nucleated Red Blood Cells % 0.1 % (0-0); Platelets 171 thou/uL (152-406); RBC Red Blood Cell Count 3.93 M/uL (4.33-5.43); Red Cell Distribution Width 13.4 % (12.1-15.2)
--- NOTE | 2024-08-26 18:02 | RAD REPORT ---
EXAMINATION: CT Stone Protocol CLINICAL INDICATION: Male, 64 years old. HEMATURIA TECHNIQUE: CT abdomen and pelvis was performed, without IV contrast, as per department protocol. Axia l, sagittal and coronal reconstructions were obtained. One or more of the following dose reduction techniques were used: Automated exposure control, adjustment of the mA and kV according to the patien t size, and iterative reconstruction. Unless otherwise specified, incidental findings do not require dedicated imaging follow-up. COMPARISON: 06/30/2023 FINDINGS: The lack of intravenous contrast limits the sensitivity of this exam for evaluation of solid visceral organs, vascular structures, and retroperitoneum. LOWER CHEST: Right basilar platelike atelectatic changes.. LIVER: Normal in size and contour. Diffuse parenchymal mild hyperdensity, correlate for history of am iodarone therapy. No focal lesion. BILIARY SYSTEM: Punctate radiodense focus along the dependent gallbladder wall near the fundus, could represent a small calculus versus calcified polyp. No suspicious abnormalities. SPLEEN: Normal size. No focal lesion. PANCREAS: No mass, ductal dilation, or cristian-pancreatic fluid. ADRENALS: Normal; no mass. KIDNEYS AND URETERS: Cortical hypoattenuating lesions suggesting cysts, largest at the right interpol ar region measuring 2.3 cm. Normal size and contour. No hydronephrosis. URINARY BLADDER: Suboptimally distended limiting evaluation. GASTROINTESTINAL TRACT: No evidence of bowel obstruction, significant free fluid, free air or abscess . APPENDIX: Normal appendix. LYMPH NODES: No lymphadenopathy. MUSCULOSKELETAL: No acute or suspicious osseous abnormality. ADDITIONAL FINDINGS: Mild prostatomegaly.. IMPRESSION: No acute or concerning abnormalities in the abdomen or pelvis, with evaluation limited by lack of IV contrast. Incidental findings as above, mostly stable.
[2024-08-26 18:07] LABS: Albumin 3.9 g/dL (3.4-5.0); Anion Gap 7.3 mEq/L (5.0-15.0); Bilirubin Total 0.4 mg/dL (0.2-1.0); Globulin 4.1 g/dL (2.3-3.5); Potassium 4.3 mEq/L (3.5-5.1)
[2024-08-26 19:37] LABS: Specific Gravity 1.019 (1.005-1.030); Sqamous Epithelial None Seen /HPF (None Seen); Urine Bacteria <20 /HPF (<20); Urine Bilirubin NEGATIVE (Negative); Urine Blood 3+ (OVER) (Negative); Urine Clarity Extremely Turbid (Clear); Urine Color Light-Orange (Yellow); Urine Culture Reflex Order REFLEXED; Urine Glucose NEGATIVE (Negative); Urine Ketones NEGATIVE (Negative); Urine Microscopic Reflex YN ORDER UMIC; Urine Mucus Slight /HPF (None Seen); Urine Nitrite NEGATIVE (Negative); Urine Protein 1+ (Negative); Urine RBC >50 /HPF (None Seen); Urine Urobilinogen Normal (Normal); Urine WBC >50 /HPF (<5); Urine pH 6.5 (5.0-7.0)
--- NOTE | 2024-08-26 20:21 | ER ---
Nurse's Notes [facility] Name: Monty Faulkner Age: 64 yrs Sex: Male : 1960 Arrival Date: 08/26/2024 Time: 16:28 Bed 16 Private MD: Diagnosis: Hematuria, unspecified Presentation: 08/26 16:53 Chief complaint: Patient states: Urine dark in color for a few days. N/V started today. ll1 States constipation has gotten better since this past weekend. Coronavirus screen: Client denies travel out of the [place] in the last 14 days. At this time, the client does not indicate any symptoms associated with coronavirus-19. Ebola Screen: Patient denies travel to an Ebola-affected area in the 21 days before illness onset. Initial Sepsis Screen: Does the patient meet any 2 criteria? No. Patient's initial sepsis screen is negative. Does the patient have a suspected source of infection? No. Patient's initial sepsis screen is negative. Risk Assessment: Do you want to hurt yourself or someone else? Patient reports no desire to harm self or others. Onset of symptoms was August 23, 2024. 16:53 Method Of Arrival: Ambulatory ll1 16:53 Acuity: YAYA 3 ll1 Triage Assessment: 16:56 General: Appears in no apparent distress. Behavior is calm, cooperative, appropriate ll1 for age. Pain: Denies pain. GI: Reports nausea, vomiting. : Parent/caregiver report the patient having dark colored urine. Historical: - Allergies: 16:55 No Known Allergies; ll1 - PMHx: 16:55 Hypertension; Pulmonary Embolism; CVA; Congestive heart failure; Diabetes - NIDDM; ll1 Atrial fibrillation; Seizures; TIA; - PSHx: 16:55 cardiac stent; ll1 - Immunization history:: Adult Immunizations up to date. - Infectious Disease History:: Denies. - Social history:: Smoking status: Patient denies any tobacco usage or history of. - Family history:: not pertinent. - Hospitalizations: : No recent hospitalization is reported. Screenin:10 [facility] ED Fall Risk Assessment (Adult) History of falling in the last 3 months, ha1 including since admission Yes- single mechanical fall (1 pt) Confusion or Disorientation Yes (5 pts) Intoxicated or Sedated No (0 pts) Impaired Gait Yes (1 pt) Mobility Assist Device Used Yes (1 pt) Altered Elimination No (0 pt) Score/Fall Risk Level 3 or more points = High Risk Oriented to surroundings, Maintained a safe environment, Educated pt \T\ family on fall prevention, incl call for assistance when getting out of bed, Hourly rounding (assess needs \T\ fall precautionary measures) done. Abuse screen: Denies threats or abuse. Denies injuries from another. Nutritional screening: No deficits noted. Tuberculosis screening: No symptoms or risk factors identified. Assessment: 21:09 Reassessment: Patient and/or family updated on plan of care and expected duration. Pain ha1 level reassessed. Patient is alert, oriented x 3, equal unlabored respirations, skin warm/dry/pink. Vital Signs: 16:53 BP 139 / 88; Pulse 76; Resp 17; Temp 98.2; Pulse Ox 97% ; Pain 0/10; ll1 19:30 BP 135 / 83; Pulse 75; Resp 18; Pulse Ox 98% ; rg5 21:09 BP 132 / 81; Pulse 74; Resp 16 S; Temp 98.1; Pulse Ox 98% on R/A; ha1 16:53 Pain Scale: Adult ll1 ED Course: 16:32 Patient arrived in ED. mr 16:37 Kelechi Campbell MD is Attending Physician. rn 16:55 Triage completed. ll1 16:56 Arm band placed on. ll1 17:43 Accessed peripheral vein via ultrasound, utilizing dynamic ultrasound technique using hb per hospital protocol. Clean \T\ dry. Dressing intact. Good blood return. Flushes easily. 20G RAC. 17:43 Initial lab(s) drawn, by me, sent to lab. hb 17:44 CBC with Diff Sent. hb 17:44 CMP Sent. hb 17:44 Lipase Sent. hb 17:47 CT Stone Protocol In Process Unspecified. EDMS 19:00 Patient has correct armband on for positive identification. Bed in low position. Call ha1 light in reach. Side rails up X 1. 19:22 Malik Boswell, ELAINE is Primary Nurse. rg5 20:20 Rajiv Edwards MD is Referral Physician. rn 21:12 No provider procedures requiring assistance completed. IV discontinued, intact, ha1 bleeding controlled, No redness/swelling at site. Pressure dressing applied. 21:15 Provided Education on: follow ups and medication . ha1 Administered Medications: 17:44 Drug: Ondansetron IVP 4 mg IVP once; over 2 minutes Route: IVP; Site: right antecubital;hb 19:43 Follow up: Response: No adverse reaction rg5 20:49 Drug: Amoxicillin-Clavulanate PO 500 mg PO once Route: PO; ha1 21:00 Follow up: Response: No adverse reaction ha1 Medication: 21:15 VIS not applicable for this client. ha1 Outcome: 20:20 Discharge ordered by . rn 21:14 Discharged to home via wheelchair, ha1 21:14 Condition: stable 21:14 Discharge instructions given to patient, family, Instructed on discharge instructions, follow up and referral plans. medication usage, Demonstrated understanding of instructions, follow-up care, medications, Prescriptions given X 1, 21:18 Patient left the ED. ha1 Signatures: Dispatcher [employer] EDMS Xochitl Hastings, Reg Reg mr Kelechi Campbell MD MD rn Baxter, Heather, RN RN hb Lewis, Lynsay, RN RN 1 Renée Lopez RN RN 1 Malik Boswell, ELAINE RN rg5 Corrections: (The following items were deleted from the chart) 17:44 17:44 Accessed peripheral vein via ultrasound, utilizing dynamic ultrasound technique hb using per hospital protocol. Clean \T\ dry. Dressing intact. Good blood return. Flushes easily. 20G RAC. hb
--- NOTE | 2024-08-26 20:21 | EDPHYS ---
Physician Documentation [facility] Name: Monty Faulkner Age: 64 yrs Sex: Male : 1960 Arrival Date: 08/26/2024 Time: 16:28 Bed 16 Private MD: ED Physician Kelechi Campbell HPI: 08/26 16:59 This 64 yrs old Black Male presents to ER via Ambulatory with complaints of Urinary rn Problem. 16:59 Patient reports dark urine for the last few days. Seen at [facility] recently for rn hematuria. They state did not see urinary tract infection and CT was normal. Discharged and no longer seeing blood but sees dark urine. Patient threw up 1 time today while home health was there. Patient reports has history of gastroparesis and no longer nauseated. He is not sure what happened. Denies abdominal pain. Was constipated over the weekend but took laxatives and that has resolved. Given Azo by to try to clear blood over the weekend. No antibiotics given.. Historical: - Allergies: 16:55 No Known Allergies; ll1 - PMHx: 16:55 Hypertension; Pulmonary Embolism; CVA; Congestive heart failure; Diabetes - NIDDM; ll1 Atrial fibrillation; Seizures; TIA; - PSHx: 16:55 cardiac stent; ll1 - Immunization history:: Adult Immunizations up to date. - Infectious Disease History:: Denies. - Social history:: Smoking status: Patient denies any tobacco usage or history of. - Family history:: not pertinent. - Hospitalizations: : No recent hospitalization is reported. ROS: 16:59 Constitutional: Negative for fever, chills, and weight loss, Cardiovascular: Negative rn for chest pain, palpitations, and edema, Respiratory: Negative for shortness of breath, cough, wheezing, and pleuritic chest pain, Abdomen/GI: Positive for vomiting x 1. Negative for abdominal pain : Positive for dark urine, negative for gross hematuria Neuro: Negative for headache, weakness, numbness, tingling, and seizure, Exam: 16:59 Constitutional: This is a well developed, well nourished patient who is awake, alert, rn and in no acute distress. Cardiovascular: Regular rate and rhythm. No pulse deficits. Respiratory: No increased work of breathing, no retractions or nasal flaring. Abdomen/GI: soft, non-tender MS/ Extremity: Pulses equal, no cyanosis. Neuro: Awake and alert, GCS 15 Vital Signs: 16:53 BP 139 / 88; Pulse 76; Resp 17; Temp 98.2; Pulse Ox 97% ; Pain 0/10; ll1 19:30 BP 135 / 83; Pulse 75; Resp 18; Pulse Ox 98% ; rg5 21:09 BP 132 / 81; Pulse 74; Resp 16 S; Temp 98.1; Pulse Ox 98% on R/A; ha1 16:53 Pain Scale: Adult ll1 MDM: 16:37 Medical Screening Exam initiated rn 20:19 Differential diagnosis: UTI. Data reviewed: vital signs, nurses notes, lab test rn result(s), radiologic studies, CT scan, and as a result, I will discharge patient. Counseling: I had a detailed discussion with the patient and/or guardian regarding the historical points, exam findings, and any diagnostic results supporting the discharge/admit diagnosis, lab results, radiology results, the need for outpatient follow up, to return to the emergency department if symptoms worsen or persist or if there are any questions or concerns that arise at home. Special discussion: I discussed with the patient/guardian in detail that at this point there is no indication for admission to the hospital. It is understood, however, that if the symptoms persist or worsen the patient needs to return immediately for re-evaluation. 20:20 ED course: UA shows WBCs and RBCs in urine. CT abdomen pelvis no acute findings. Will seo intern home with antibiotics and PCP follow-up. Seen by Dr. Edwards here in ER and results reviewed with him. Will follow-up with Dr. Edwards as outpatient.. 08/26 16:58 Order name: CBC with Diff; Complete Time: 18:30 rn 08/26 16:58 Order name: CMP; Complete Time: 18:30 rn 08/26 16:58 Order name: Lipase; Complete Time: 18:30 rn 08/26 16:58 Order name: UA Rfx Steven Cult if indicated; Complete Time: 20:13 rn 08/26 19:46 Order name: Urine Culture EDME 08/26 16:59 Order name: CT Stone Protocol; Complete Time: 18:30 rn 08/26 16:58 Order name: EKG; Complete Time: 16:59 rn 08/26 16:58 Order name: IV Saline Lock; Complete Time: 17:44 rn 08/26 16:58 Order name: Labs collected and sent; Complete Time: 17:44 rn 08/26 16:58 Order name: EKG - Nurse/Tech; Complete Time: 19:43 rn Administered Medications: 17:44 Drug: Ondansetron IVP 4 mg IVP once; over 2 minutes Route: IVP; Site: right antecubital;hb 19:43 Follow up: Response: No adverse reaction rg5 20:49 Drug: Amoxicillin-Clavulanate PO 500 mg PO once Route: PO; ha1 21:00 Follow up: Response: No adverse reaction ha1 Disposition Summary: 08/26/24 20:20 Discharge Ordered Notes: Location: Home rn Problem: an ongoing problem rn Symptoms: have improved rn Condition: Stable rn Diagnosis - Hematuria, unspecified rn Followup: rn - With: Rajiv Edwards MD - When: As needed - Reason: Recheck today's complaints, Re-evaluation by your physician Discharge Instructions: - Discharge Summary Sheet rn - Hematuria, Adult rn Forms: - Medication Reconciliation Form rn - Antibiotic varnish melter - Prescription Opioid Use rn - Patient Portal Instructions rn - Leadership Thank You Letter rn Prescriptions: - Augmentin 500-125 mg Oral Tablet - take 1 tablet ORAL route every 8 hours for 10 days; 30 tablet; Refills: 0, rn Product Selection Permitted Signatures: Dispatcher [employer] EDMS Kelechi Campbell MD MD rn Baxter, Heather RN RN Viraj Lipscomb RN RN ll1 Renée Lopez, RN RN ha1 Malik Boswell RN rg5 Corrections: (The following items were deleted from the chart) 16:58 16:58 CBC+H.LAB.BRZ ordered. EDMS EDMS 16:58 16:58 COMPREHENSIVE METABOLIC PANEL+C.LAB.BRZ ordered. EDMS EDMS 16:58 16:58 LIPASE+C.LAB.BRZ ordered. EDMS EDMS 16:58 16:58 UA Rfx Steven Cult if indicated+U.LAB.BRZ ordered. EDMS EDMS
[2024-08-26] MEDS ORDERED: AMOX/K CLAV 875 MG TAB ONE (20:41)
[2024-08-27 04:23] VITALS: O2SAT 98
[2024-08-27 04:24] VITALS: BP 132/81; TEMP 98.1
--- NOTE | 2024-08-28 11:46 | EKG ---
Test Date: 2024-08-26 Test Time: 19:38:54 Impregnating Helper: ROSANGELA MEASUREMENT RESULTS: Intervals: Rate: 70 TN: 206 QRSD: 166 QT: 492 QTc: 531 [place]: P: 85 TN: 206 QRS: -44 T: 110 INTERPRETIVE STATEMENTS: Normal sinus rhythm Left axis deviation Left bundle branch block Abnormal ECG Compared to ECG 08/26/2024 19:37:53 No significant changes Electronically Signed On 08-28-24 11:42:25 CDT by James Alegria
--- NOTE | 2024-08-28 11:46 | EKG ---
Test Date: 2024-08-26 Test Time: 19:37:53 Deaf/Hard Of Hearing Specialist: ROSANGELA MEASUREMENT RESULTS: Intervals: Rate: 70 [place]: 172 QRSD: 166 QT: 492 QTc: 531 [place]: P: 51 [place]: 172 QRS: -46 T: 102 INTERPRETIVE STATEMENTS: Normal sinus rhythm Left axis deviation Left bundle branch block Abnormal ECG Compared to ECG 05/27/2024 23:16:16 Left-axis deviation now present First degree AV block no longer present Electronically Signed On 08-28-24 11:42:28 CDT by James Alegria
== END 2024-08-26 21:18 | disposition home or self-care (01) ==
LOC: ER 16:28
DX: R31.9 Hematuria, unspecified (principal); E11.9 Type 2 diabetes mellitus without complications; I10 Essential (primary) hypertension; Z95.818 Presence of other cardiac implants and grafts
CPT/HCPCS: 93005 ×2; 87088; 85025; 81001; 87086; 36415; 83690; 80053; 76377; 74176; 96374; 99285; J2405

== ENCOUNTER 2024-08-28 17:42 | Emergency (ER) | payer BC ==
[2024-08-28 18:39] LABS: Absolute Lymphocytes (CBC) 0.7 K/uL (0.7-4.9); Absolute Monocytes 0.4 K/uL (0.1-1.3); Absolute Neutrophil 3.1 K/uL (1.8-8.0); Basophils % 0.7 % (0-1.3); Eosinophils % 0.7 % (0-4.4); Hematocrit 33.7 % (39.6-49.0); Hemoglobin 11.5 g/dL (13.6-17.9); Lymphocytes % 15.6 % (15.3-44.8); MCH 31.7 pg (27.0-35.0); MCV 93.3 fL (80-100); MPV 9.7 fL (7.6-11.3); Monocytes % 9.8 % (3.3-12.3); Neutrophils % 73.2 % (41.7-73.7); Nucleated Red Blood Cells % 0.1 % (0-0); Platelets 135 thou/uL (152-406); RBC Red Blood Cell Count 3.61 M/uL (4.33-5.43); Red Cell Distribution Width 13.4 % (12.1-15.2)
[2024-08-28 18:46] LABS: PT Prothrombin Time 15.9 SECONDS (10-13.0); Protime INR 1.42
--- NOTE | 2024-08-28 18:48 | RAD REPORT ---
EXAMINATION: ONE VIEW CHEST XR CLINICAL INDICATION: Male, 64 years old.,syncope fall TECHNIQUE: Frontal chest projection is submitted. Examination is limited by patient positioning and t echnique. COMPARISON: 05/27/2024 FINDINGS: The lungs are well inflated and clear. No pneumothorax or sizable effusion. The heart is normal in s ize. Mediastinal contours are unremarkable. IMPRESSION: No acute intrathoracic abnormalities.
[2024-08-28 19:03] LABS: Albumin 3.3 g/dL (3.4-5.0); Albumin/Globulin Ratio 0.9 (1.1-1.8); Anion Gap 11.2 mEq/L (5.0-15.0); Bilirubin Direct 0.2 mg/dL (0-0.2); Bilirubin Indirect, Calculated 0.2 mg/dL (0.2-0.8); Bilirubin Total 0.4 mg/dL (0.2-1.0); Globulin 3.8 g/dL (2.3-3.5); Magnesium 2.4 mg/dL (1.6-2.4); Potassium 4.2 mEq/L (3.5-5.1); Protein, Total 7.1 g/dL (6.4-8.2); Troponin High Sensitivity 10.2 pg/mL (<58.9)
[2024-08-28] MEDS ORDERED: MIDAZOLAM HCL IN 0.9 % NACL/PF 100 MG/100 ML BAG IVPB ONE (19:22)
[2024-08-28] MEDS ORDERED: DOPAMINE HCL IN DEXTROSE 5 % 400 MG/250 ML KIT IV ONE (19:33)
--- NOTE | 2024-08-28 19:38 | RAD REPORT ---
EXAM: CT brain without contrast HISTORY: syncope + fall head injury;Syncope COMPARISON: 05/27/2024 TECHNIQUE: Multiple contiguous axial images were obtained and a CT of the brain without contrast. Sag ittal and coronal reformats were performed. FINDINGS: No evidence of hydrocephalus, intracranial hemorrhage, or extra-axial fluid collection. Encephalomalacia involving the right opercular cortex extending to the high right frontal cortex, and involving the underlying centrum semiovale bowel and right basal ganglia, stable. Small right anterior temporal focus of encephalomalacia is also stable. Other patchy moderate periventricular and deep white matter hypodensities, stable and nonspecific, most suggestive of chronic microvascular ischemic changes present. The calvarium is intact. The visualized paranasal sinuses and mastoid air cells are essentially clear . IMPRESSION: No evidence of acute intracranial abnormality. Stable chronic findings as above suggesting sequelae o f remote ischemia. EXAM: CT of the cervical spine without contrast HISTORY: syncope + fall head injury;Syncope COMPARISON: None TECHNIQUE: Multiple contiguous axial images were obtained in a CT of the cervical spine without contr ast. Sagittal and coronal reformats were performed. FINDINGS: The vertebral bodies demonstrate normal height and alignment. No evidence of acute fracture or subluxation.. No degenerative changes are present. No prevertebral soft tissue swelling is seen. The posterior facets are well aligned. Normal alignment of the skull base with the cervical spine is seen. The lung apices are unremarkable. IMPRESSION: No evidence of acute osseous abnormality of the cervical spine.
--- NOTE | 2024-08-28 19:41 | ER ---
Nurse's Notes [facility] Name: Monty Faulkner Age: 64 yrs Sex: Male : 1960 Arrival Date: 08/28/2024 Time: 17:42 Bed 3 Private MD: Diagnosis: Syncope, complete heart block, bradycardia Presentation: 08/28 17:55 Chief complaint: EMS states: CALLED TO PATIENT'S HOME FOR A FALL. UPON EMS ARRIVAL, PT cm10 FOUND SITTING ON RECLINER. PT COMPLAINING OF HEADACHE RATED A 1/10. EMS STATES THAT PT HAD 1 EPISODE OF VOMITING, FOUND TO BE HYPOTENSIVE AND BRADYCARDIC IN THE 40S. Initial Sepsis Screen: Does the patient meet any 2 criteria? No. Patient's initial sepsis screen is negative. Does the patient have a suspected source of infection? No. Patient's initial sepsis screen is negative. Risk Assessment: Do you want to hurt yourself or someone else? Patient reports no desire to harm self or others. Onset of symptoms. Care prior to arrival: Medication(s) given: Normal saline infusion, 500 mL, zofran 4 mg, IV initiated. 22 GA, in the right forearm. 17:55 Method Of Arrival: EMS: [facility] cm10 17:55 Acuity: YAYA 3 cm10 18:13 Coronavirus screen: Client denies travel out of the [place] in the last 14 days. Ebola cm10 Screen: Patient denies travel to an Ebola-affected area in the 21 days before illness onset. Triage Assessment: 18:39 General: Appears in no apparent distress. comfortable, Behavior is calm, cooperative. cm10 Pain: Complains of pain in head Pain currently is 1 out of 10 on a pain scale. Neuro: No deficits noted. Level of Consciousness is awake, alert, obeys commands, Oriented to person, place, time, situation, Appropriate for age. Cardiovascular: Rhythm is. Respiratory: No deficits noted. Airway is patent Respiratory effort is even, unlabored, Respiratory pattern is regular, symmetrical. Historical: - Allergies: 17:45 No Known Allergies; ll1 - PMHx: 17:45 Atrial fibrillation; Congestive heart failure; Hypertension; CVA; Pulmonary Embolism; ll1 Seizures; Diabetes - NIDDM; TIA; - PSHx: 17:45 cardiac stent; ll1 - Immunization history:: Adult Immunizations up to date. - Infectious Disease History:: Denies. - Social history:: Smoking status: unknown. Screenin:39 [facility] ED Fall Risk Assessment (Adult) History of falling in the last 3 months, cm10 including since admission Yes- fall prone (multiple falls) (3 pts) Confusion or Disorientation No (0 pts) Intoxicated or Sedated No (0 pts) Impaired Gait Yes (1 pt) Mobility Assist Device Used Yes (1 pt) Altered Elimination No (0 pt) Score/Fall Risk Level 3 or more points = High Risk Oriented to surroundings, Maintained a safe environment, Hourly rounding (assess needs \\T\\ fall precautionary measures) done. Abuse screen: Denies threats or abuse. Denies injuries from another. Nutritional screening: No deficits noted. Tuberculosis screening: No symptoms or risk factors identified. Assessment: 19:47 General: Received patient with HR in 30" s and complete heart block pacer applied to kd4 patient and pacing started by MD Davies. versed and dopamine started as BP in 60' SBP.. 20:42 General: Patient in bed stable at the moment, a/o x 4. kd4 20:48 General: Patient pacer off by , patient stable at moment.. kd4 21:15 General: Rport given to EMS, all paperwork , cd,ekg given. kd4 21:22 General: Attempt to give report multiple time, was told they not aware patient coming kd4 and will clarify with attending, Attempt to give number for call back , phone was hanged. 21:45 General: report given to ELAINE Denny at [facility].. kd4 Vital Signs: 18:13 BP 167 / 97; Pulse 71; Resp 16; Temp 98.2; Pulse Ox 97% ; Weight 108.86 kg; Height 6 cm10 ft. 1 in. ; Pain 1/10; 19:15 BP 57 / 48; Pulse 30; Resp 16; Pulse Ox 96% on R/A; Pain 0/10; kd4 19:46 BP 123 / 67; Pulse 97; Resp 18; Temp 98.2; Pulse Ox 97% ; Pain 4/10; bm8 20:05 BP 110 / 64; Pulse 105; Resp 16; Pulse Ox 97% on R/A; Pain 0/10; kd4 20:27 BP 141 / 89; Pulse 106 (PACED); Resp 17; Temp 98.2; Pulse Ox 100% ; Pain 4/10; bm8 20:44 BP 140 / 87; Pulse 101; Resp 20; Pulse Ox 97% on R/A; Pain 0/10; kd4 21:20 BP 145 / 89; Pulse 103; Resp 20; Temp 98.3; Pulse Ox 98% on R/A; Pain 0/10; kd4 18:13 Body Mass Index 31.66 (108.86 kg, 185.42 cm) cm10 18:13 Pain Scale: Adult cm10 19:15 Pain Scale: Adult kd4 19:46 Pain Scale: Adult bm8 20:05 Pain Scale: Adult kd4 20:27 Pain Scale: Adult bm8 20:44 Pain Scale: Adult kd4 21:20 Pain Scale: Adult kd4 Vitals: 18:21 Cardiac Rhythm Assessment Sinus chiquis. cm10 18:35 Cardiac Rhythm Assessment Sinus rhythm W/1st degree HB. cm10 ED Course: 17:43 Patient arrived in ED. ll1 17:44 Frida Davies MD is Attending Physician. sp3 17:45 Arm band placed on Patient placed in an exam room, on a stretcher. ll1 17:55 Johnna Virk, ELAINE is Primary Nurse. cm10 17:58 Triage completed. cm10 18:11 XRAY Chest (1 view) In Process Unspecified. EDMS 18:38 Maintain EMS IV. Dressing intact. Good blood return noted. Site clean \\T\\ dry. Gauge \\T\\ cm 10 site: 22g right forearm. Flushed with 10 mL NS. 18:39 Patient has correct armband on for positive identification. Bed in low position. Call cm10 light in reach. Side rails up X2. Client placed on continuous cardiac and pulse oximetry monitoring. NIBP monitoring applied. press tender long goods on. 18:54 CT Head C Spine In Process Unspecified. EDMS 19:20 Inserted saline lock: 20 gauge in right antecubital area, using aseptic technique. kd4 19:28 Tried calling [facility] transfer center, no answer. bc6 19:41 Transfer initiated \\T\\1937. bc6 20:22 EKG done, by ED staff. vk 21:00 Pt accepted to [facility] by dr. Owen, admin approval by Ariane Walker going to rm bc6 icu 207, report called to [phone]. [facility] to [facility]. 21:29 Tried to call [facility] transfer center about Nurse at [facility] refusing to take [facility] report, no answer. 21:33 Assisted provider with: external pacing. kd4 21:35 Provided Education on: need for transfer. Report given to EMS. kd4 21:35 Patient transferred, IV remains in place. Dopamine drip continued. kd4 21:36 tried to call [facility] transfer center, no answer. bc6 21:46 Jorge Luis Magdaleno, RN is Primary Nurse. kd4 Administered Medications: 19:20 Drug: Midazolam IVP or IV 0.01 mg/kg/h IV at 3 ml/hr See Administration Instructions; bm8 (Standard concentration: 100 mg / 100 mL NS); Recommended max rate 0.1 mg/kg/hr; Titrate 0.01 mg/kg/hr as often as every 30 minutes to achieve goal (see titration policy); Goal parameter RASS 0 to -2 Route: IV; Rate: 3 ml/hr; Site: right forearm; 19:50 Follow up: Titrated up to 4ML/hr kd4 20:06 Follow up: Infusion on hold at this moment kd4 19:40 Drug: DOPamine IV (400mg/250mL Premix) 5 mcg/kg/min IV at calculated rate See kd4 Administration Instructions; Recommended max rate 20 mcg/kg/min; Titrate 2.5 mcg/kg/min as often as every 5 minutes to achieve goal (see titration policy); Goal parameter MAP greater than 65 mmHg. [*Low doses 1 to 4 mcg/kg/min may result in hypotension, decreased SVR*] Route: IV; Rate: 5 mcg/kg/min; Site: right antecubital; Medication: 18:39 VIS not applicable for this client. cm10 Intake: Outcome: 19:41 ER care complete, transfer ordered by . sp3 21:34 Transferred by ground EMS to [facility], Note: [place] [id number] ICU room 207 21:34 Condition: stable 21:34 Instructed on the need for transfer, Demonstrated understanding of 21:47 Patient left the ED. kd4 Signatures: Dispatcher [employer] EDViraj Nathan RN RN ll1 Frida Davies MD MD sp3 Radha Conklin6 Johnna Virk, RN RN cm10 Fanny Godoy Brad RN RN bm8 Jorge Luis Magdaleno RN RN kd4 Corrections: (The following items were deleted from the chart) 20:44 20:04 General: Pacing now at 0 output 80 BPM. kd4 kd4
--- NOTE | 2024-08-28 19:41 | EDPHYS ---
Physician Documentation [facility] Name: Monty Faulkner Age: 64 yrs Sex: Male : 1960 Arrival Date: 08/28/2024 Time: 17:42 Bed 3 Private MD: ED Physician Frida Davies HPI: 08/28 17:48 This 64 yrs old Black Male presents to ER via Unassigned with complaints of syncope, sp3 fall. 17:48 64-year-old male with history of atrial fibrillation currently on Eliquis, CHF, sp3 hypertension, CVA, prior PE, seizures, who is a patient of Dr. Edwards presents to the ED by EMS for recurrent syncope and fall with probable head injury and initial hypotension which is now resolved but persistent bradycardia in the 40-45 range. Patient currently has no symptoms. He denies ongoing headache, chest pain, shortness of breath, back pain, abdominal pain, vomiting, diarrhea or any other signs or symptoms on ROS at this time.. Historical: - Allergies: 17:45 No Known Allergies; ll1 - PMHx: 17:45 Atrial fibrillation; Congestive heart failure; Hypertension; CVA; Pulmonary Embolism; ll1 Seizures; Diabetes - NIDDM; TIA; - PSHx: 17:45 cardiac stent; ll1 - Immunization history:: Adult Immunizations up to date. - Infectious Disease History:: Denies. - Social history:: Smoking status: unknown. ROS: 17:49 Constitutional: Negative for fever, chills, and weight loss, Eyes: Negative for injury, sp3 pain, redness, and discharge, ENT: Negative for injury, pain, and discharge, Neck: Negative for injury, pain, and swelling, Respiratory: Negative for shortness of breath, cough, wheezing, and pleuritic chest pain, Abdomen/GI: Negative for abdominal pain, nausea, vomiting, diarrhea, and constipation, Back: Negative for injury and pain, MS/Extremity: Negative for injury and deformity, Skin: Negative for injury, rash, and discoloration, Psych: Negative for depression, anxiety, suicide ideation, homicidal ideation, and hallucinations, Allergy/Immunology: Negative for hives, rash, and allergies, Endocrine: Negative for neck swelling, polydipsia, polyuria, polyphagia, and marked weight changes, Hematologic/Lymphatic: Negative for swollen nodes, abnormal bleeding, and unusual bruising, 17:49 All other systems are negative, Exam: 17:49 Constitutional: This is a well developed, well nourished patient who is awake, alert, sp3 and in no acute distress. Head/Face: Normocephalic, atraumatic. Eyes: Pupils equal round and reactive to light, extra-ocular motions intact. Lids and lashes normal. Conjunctiva and sclera are non-icteric and not injected. Cornea within normal limits. Periorbital areas with no swelling, redness, or edema. ENT: Nares patent. No nasal discharge, no septal abnormalities noted. External auditory canals are clear. Oropharynx with no redness, swelling, or masses, exudates, or evidence of obstruction, uvula midline. Mucous membranes moist. Neck: Trachea midline, no thyromegaly or masses palpated, and no cervical lymphadenopathy. Supple, full range of motion without nuchal rigidity, or vertebral point tenderness. No Meningismus. Chest/axilla: Normal chest wall appearance and motion. Nontender with no deformity. No lesions are appreciated. Respiratory: Lungs have equal breath sounds bilaterally, clear to auscultation and percussion. No rales, rhonchi or wheezes noted. No increased work of breathing, no retractions or nasal flaring. Abdomen/GI: Soft, non-tender, with normal bowel sounds. No distension or tympany. No guarding or rebound. No evidence of tenderness throughout. Back: No spinal tenderness. No costovertebral tenderness. Full range of motion. MS/ Extremity: Pulses equal, no cyanosis. Neurovascular intact. Full, normal range of motion. Psych: Awake, alert, with orientation to person, place and time. Behavior, mood, and affect are within normal limits. 17:49 Cardiovascular: Bradycardia 40-45 noted, 17:50 Neuro: Patient verbally slow otherwise no focal deficits. Gait not assessed. He sp3 normally uses walker., 19:16 ECG was reviewed by the Attending Physician. EKG demonstrates initially normal sinus sp3 rhythm at 70 bpm with first-degree AV block of 218 and left bundle branch block with nonspecific ST/T changes. During episodes, second EKG demonstrates sinus bradycardia at 38 bpm with IA interval 302 QTc 426 and left bundle branch block. Vital Signs: 18:13 BP 167 / 97; Pulse 71; Resp 16; Temp 98.2; Pulse Ox 97% ; Weight 108.86 kg; Height 6 cm10 ft. 1 in. ; Pain 1/10; 19:15 BP 57 / 48; Pulse 30; Resp 16; Pulse Ox 96% on R/A; Pain 0/10; kd4 19:46 BP 123 / 67; Pulse 97; Resp 18; Temp 98.2; Pulse Ox 97% ; Pain 4/10; bm8 20:05 BP 110 / 64; Pulse 105; Resp 16; Pulse Ox 97% on R/A; Pain 0/10; kd4 20:27 BP 141 / 89; Pulse 106 (PACED); Resp 17; Temp 98.2; Pulse Ox 100% ; Pain 4/10; bm8 20:44 BP 140 / 87; Pulse 101; Resp 20; Pulse Ox 97% on R/A; Pain 0/10; kd4 21:20 BP 145 / 89; Pulse 103; Resp 20; Temp 98.3; Pulse Ox 98% on R/A; Pain 0/10; kd4 18:13 Body Mass Index 31.66 (108.86 kg, 185.42 cm) cm10 18:13 Pain Scale: Adult cm10 19:15 Pain Scale: Adult kd4 19:46 Pain Scale: Adult bm8 20:05 Pain Scale: Adult kd4 20:27 Pain Scale: Adult bm8 20:44 Pain Scale: Adult kd4 21:20 Pain Scale: Adult kd4 MDM: 17:45 Medical Screening Exam initiated sp3 17:51 Data reviewed: vital signs, nurses notes, EMS record, old medical records, lab test sp3 result(s), EKG, radiologic studies. ED course: 64-year-old male with syncopal episode with subsequent fall. Bradycardia persisting. Differential diagnosis includes orthostatic hypotension, bradycardia induced hypotension from idiopathic syncope, ACS, other intracranial pathology, trauma, among others. Workup will include CT scan of the head and C-spine and full cardiac workup including chest x-ray and EKG. Disposition probable admission to PCP.. 19:13 ED course: Patient having significant sinus arrhythmia with heart rate dropping into sp3 the 30s with hypoperfusion, confusion and dropped blood pressure. His episode lasts a few minutes before heart rate increases back into the 70s. Patient is not on a beta-hardik. Pacer pads have been placed and we will transfer patient to [facility] for cardiology/EP evaluation.. 20:06 ED course: After being on dopamine for 20 minutes patient's heart rate now at sinus sp3 tach at 100 bpm and external pacer has been turned off. Versed drip also stopped. Patient mentating alert and oriented and stable now. Patient will still need to be transferred as he has had multiple episodes of bradycardia.. 20:24 ED course: Patient now with heart rate in the low 100s on dopamine. External pacer has sp3 been stopped. Discussed with cardiology at [facility] is who has accepted this patient with sick sinus syndrome.. 08/28 17:46 Order name: Basic Metabolic Panel; Complete Time: 19:16 sp3 08/28 17:46 Order name: CBC with Diff; Complete Time: 19:16 sp3 08/28 17:46 Order name: LFT's; Complete Time: 19:16 sp3 08/28 17:46 Order name: Magnesium; Complete Time: 19:16 sp3 08/28 17:46 Order name: NT PRO-BNP; Complete Time: 19:16 sp3 08/28 17:46 Order name: PT-INR; Complete Time: 18:49 sp3 08/28 17:46 Order name: Troponin HS; Complete Time: 19:16 sp3 08/28 17:46 Order name: XRAY Chest (1 view); Complete Time: 18:49 sp3 08/28 17:46 Order name: CT Head C Spine; Complete Time: 19:39 sp3 08/28 17:46 Order name: Cardiac monitoring; Complete Time: 18:38 sp3 08/28 17:46 Order name: EKG - Nurse/Tech; Complete Time: 18:38 sp3 08/28 17:46 Order name: IV Saline Lock; Complete Time: 18:38 sp3 08/28 17:46 Order name: Labs collected and sent; Complete Time: 18:38 sp3 08/28 17:46 Order name: O2 Per Protocol; Complete Time: 18:38 sp3 08/28 17:46 Order name: O2 Sat Monitoring; Complete Time: 18:38 sp3 Administered Medications: 19:20 Drug: Midazolam IVP or IV 0.01 mg/kg/h IV at 3 ml/hr See Administration Instructions; bm8 (Standard concentration: 100 mg / 100 mL NS); Recommended max rate 0.1 mg/kg/hr; Titrate 0.01 mg/kg/hr as often as every 30 minutes to achieve goal (see titration policy); Goal parameter RASS 0 to -2 Route: IV; Rate: 3 ml/hr; Site: right forearm; 19:50 Follow up: Titrated up to 4ML/hr kd4 20:06 Follow up: Infusion on hold at this moment kd4 19:40 Drug: DOPamine IV (400mg/250mL Premix) 5 mcg/kg/min IV at calculated rate See kd4 Administration Instructions; Recommended max rate 20 mcg/kg/min; Titrate 2.5 mcg/kg/min as often as every 5 minutes to achieve goal (see titration policy); Goal parameter MAP greater than 65 mmHg. [*Low doses 1 to 4 mcg/kg/min may result in hypotension, decreased SVR*] Route: IV; Rate: 5 mcg/kg/min; Site: right antecubital; Disposition Summary: 08/28/24 19:41 Transfer Ordered Notes: Transfer Location: [facility] sp3 Reason: Higher level of care sp3 Condition: Stable sp3 Problem: an acute exacerbation sp3 Symptoms: have worsened sp3 Accepting Physician: CHANG cardiology(08/28/24 21:47) kd4 Diagnosis - Syncope, complete heart block, bradycardia sp3 Forms: - Medication Reconciliation Form sp3 - SBAR form sp3 Critical care time excluding procedures: 19:17 Critical care time: Bedside Care: 20 minutes, Consultation: 10 minutes, Family sp3 Intervention: 10 minutes. Total time: 40 minutes Signatures: Dispatcher [employer] EDViraj Nathan, RN RN ll1 Frida Davies MD MD sp3 Johnna Virk, RN RN cm10 Jamey Marin, RN RN bm8 Jorge Luis Magdaleno, RN RN kd4 Corrections: (The following items were deleted from the chart) 17:46 17:46 BASIC METABOLIC PANEL+C.LAB.BRZ ordered. EDMS EDMS 17:46 17:46 CBC+H.LAB.BRZ ordered. EDMS EDMS 17:46 17:46 HEPATIC FUNCTION+C.LAB.BRZ ordered. EDMS EDMS 17:46 17:46 MAGNESIUM+C.LAB.BRZ ordered. EDMS EDMS 17:46 17:46 PROBNP+C.LAB.BRZ ordered. EDMS EDMS 17:46 17:46 PROTIME (+INR)+COAG.LAB.BRZ ordered. EDMS EDMS 17:46 17:46 Troponin High Sensitivity+C.LAB.BRZ ordered. EDMS EDMS 17:46 17:46 Chest Single View+RAD.RAD.BRZ ordered. EDMS EDMS 17:46 17:46 Head C Spine MPR Wo Con+CT.RAD.BRZ ordered. EDMS EDMS 21:47 19:41 TBD cardiology sp3 kd4
[2024-08-28 22:01] VITALS: BP 145/89; TEMP 98.3; O2SAT 98
--- NOTE | 2024-09-01 12:09 | EKG ---
Test Date: 2024-08-28 Test Time: 20:20:44 Steeping Press Tender: LAYO MEASUREMENT RESULTS: Intervals: Rate: 108 OK: QRSD: 164 QT: 456 QTc: 611 [place]: P: OK: QRS: -15 T: 87 INTERPRETIVE STATEMENTS: Sinus tachycardia Left bundle branch block Abnormal ECG Compared to ECG 08/28/2024 18:35:58 Uncertain supraventricular rhythm now present Sinus rhythm no longer present First degree AV block no longer present Left-axis deviation no longer present Electronically Signed On 09-01-24 12:07:11 CDT by James Alegria
--- NOTE | 2024-09-01 12:09 | EKG ---
Test Date: 2024-08-28 Test Time: 18:35:58 Rental Clerk: WILVER MEASUREMENT RESULTS: Intervals: Rate: 70 LA: 218 QRSD: 174 QT: 512 QTc: 552 [place]: P: 69 LA: 218 QRS: -56 T: 80 INTERPRETIVE STATEMENTS: Sinus rhythm with 1st degree AV block Left axis deviation Left bundle branch block Abnormal ECG Compared to ECG 08/28/2024 18:21:56 First degree AV block now present Electronically Signed On 09-01-24 12:07:19 CDT by James Alegria
--- NOTE | 2024-09-01 12:10 | EKG ---
Test Date: 2024-08-28 Test Time: 18:21:56 Heating And Cooling Systems Engineer: WILVER MEASUREMENT RESULTS: Intervals: Rate: 38 MN: 302 QRSD: 158 QT: 536 QTc: 426 [place]: P: 71 MN: 302 QRS: -57 T: 206 INTERPRETIVE STATEMENTS: Sinus rhythm with 2nd degree AV block with 2:1 AV conduction Left axis deviation Left bundle branch block Abnormal ECG Compared to ECG 08/26/2024 19:38:54 No significant changes Electronically Signed On 09-01-24 12:07:41 CDT by James Alegria
== END 2024-08-28 21:47 | disposition short-term general hospital (02) ==
LOC: ER 17:42
DX: I44.2 Atrioventricular block, complete (principal); R00.1 Bradycardia, unspecified; W18.30XA Fall on same level, unspecified, initial encounter; I10 Essential (primary) hypertension; I48.91 Unspecified atrial fibrillation; I50.9 Heart failure, unspecified; Z95.818 Presence of other cardiac implants and grafts
CPT/HCPCS: 93005 ×3; 85025; 80048; 36415; 83735; 85610; 80076; 84484; 83880; 70450; 72125; 71045; 99285; J2250